=== PATIENT | male | born 1980 | race Two or more races ===

== ENCOUNTER → 2021-09-19 14:48 | Outpatient (BNVA) | payer MEDICARE, MEDICAID, SELFPAY | PROVIDERS: PCP Internal Medicine; Visit Provider Psychiatry & Neurology Neurology | DX: R51.9 Headache, unspecified (principal); G47.33 Obstructive sleep apnea (adult) (pediatric) | CPT/HCPCS: 99212 ==

== ENCOUNTER 2023-03-07 08:57 | Outpatient (AMB) | payer MEDICARE, MEDICAID, SELFPAY ==
--- NOTE | 2023-03-07 08:56 | A.OFFVIS_ITS ---
Intake Vital Signs 03/07/23 08:58 Height 5 ft 9 in Weight 330 lb BMI 48.7 BP 124/86 Blood Pressure Location Rt brachial Position Sitting Pulse Oximetry (%) 95 Oxygen Delivery Method Room Air Intake Visit Reasons: Follow up for JAMIE on CPAP-confirmed Intake Note: Patient presents for follow up JAMIE Allergies No Known Allergies [No Known Allergies*] Allergy (Unverified 03/07/23 09:01) Medication List - Last Reconciled 03/07/23 by Milka Neal MD alum-mag hydroxide-simeth 400-400-40 mg/5 mL (Mylanta Maximum Strength) 5 mL PO QID PRN atorvastatin 20 mg PO DAILY insulin glargine (Lantus Solostar U-100 Insulin) 25 units subcut BEDTIME linagliptin (Tradjenta) 5 mg PO DAILY losartan 25 mg PO DAILY metoprolol succinate ER 25 mg PO DAILY pantoprazole 40 mg PO BID HPI HPI Comments History of Present Illness Details ? 42y/o male comes for follow up . He is on a new CPAP - i do not have compliance report .He feels like the pressure fluctuates and he wakes up.His home care company is [employer] ??? He says he is using it everyday . ??? His headaches have decreased 1 /month and usually related to GERD. He tries to relax. He has photophobia and phonophobia sometimes. He wonders if its related to his GERD or his diabetes. He feels when his glucose is high he gets headaches His diabetes is not well controlled [facility] Medical History Diabetes Fatty liver Frequent headaches GERD (gastroesophageal reflux disease) HTN (hypertension) Hyperlipidemia Obesity Obstructive sleep apnea Surgical History Hx of cholecystectomy Family History Father Diabetes mellitus Mother Hypertension Social History Household Members: Children Household Members Other:: mother Alcohol intake: current Alcohol intake frequency: does not drink Patient Tobacco Use Status: Never used Tobacco Current occupational status: disabled Physical Exam Vital Signs: Last Vital Signs BP 124/86 03/07/23 08:58 Pulse Ox 95 03/07/23 08:58 Oxygen Delivery Method Room Air 03/07/23 08:58 BMI result Body Mass Index 48.7 Const General: cooperative and healthy appearing Nutritional Appearance: obese Orientation/consciousness: patient oriented x3 Neuro General: patient oriented x3, gait normal, moves all extremities and no focal motor deficits Cognition (Neuro): normal cognition Gait exam (Neuro): Normal gait present Motor exam (neuro): 5/5 motor strength present throughout Assessment & Plan Assessment & Plan (1) Obstructive sleep apnea: Code(s): G47.33 - Obstructive sleep apnea (adult) (pediatric) Plan Continue CPAP pressure to 8-12. Counseled on good BP and glucose control. Compliance report from [facility] Coding Level of Care Code Est Pt Level 4 (10507) Diagnoses Obstructive sleep apnea G47.33
[2023-03-07 08:58] VITALS: BP 124/86; O2SAT 95; BMI 48.7
== END 2023-03-07 09:18 | disposition home or self-care (01) ==
PROVIDERS: PCP Internal Medicine; Visit Provider Psychiatry & Neurology Neurology
DX: G47.33 Obstructive sleep apnea (adult) (pediatric) (principal)
CPT/HCPCS: 99214

== ENCOUNTER → 2023-03-07 08:57 | Outpatient (BNVA) | payer MEDICARE, MEDICAID, SELFPAY | PROVIDERS: PCP Internal Medicine; Visit Provider Psychiatry & Neurology Neurology | DX: G47.33 Obstructive sleep apnea (adult) (pediatric) (principal) | CPT/HCPCS: 99212 ==

== ENCOUNTER 2023-05-15 10:25 | Outpatient (AMB) | payer MEDICARE, MEDICAID, SELFPAY ==
--- NOTE | 2023-05-15 10:36 | MHC.OFFVIS ---
Intake Vital Signs 05/15/23 10:38 Height 5 ft 9 in Weight 326 lb 2 oz BMI 48.2 BP 110/82 Blood Pressure Location Lt brachial Position Sitting Pulse 82 Pulse Source Pulse Oximeter Pulse Oximetry (%) 98 Oxygen Delivery Method Room Air Intake Visit Reasons: 2m Follow up JAMIE on CPAP-confirmed Intake Note: Pt is here for a 2 month follow up for JAMIE with CPAP use. Pt reports his machine is pushing too much air out and it gives me chest pain . He feels this may need to be adjusted as the max settings have become difficult to tolerate. Allergies No Known Allergies [No Known Allergies*] Allergy (Unverified 05/15/23 10:43) HPI HPI Comments History of Present Illness Details ? 43y/o male comes for follow up . He is on a new CPAP - i do not have compliance report .He feels like the pressure fluctuates and he wakes up.His home care company is [employer] ??? He says he is using it everyday .He reports waking up with chest pressure and feels like it is too much air. ??? His headaches have decreased 1 /month and usually related to GERD. He tries to relax. He has photophobia and phonophobia sometimes. He wonders if its related to his GERD or his diabetes. He feels when his glucose is high he gets headaches His diabetes is not well controlled [facility] Medical History Frequent headaches Obstructive sleep apnea Fatty liver Hyperlipidemia GERD (gastroesophageal reflux disease) HTN (hypertension) Diabetes Obesity Surgical History Hx of cholecystectomy Family History Father Diabetes mellitus Mother Hypertension Social History Household Members: Children Household Members Other:: mother Alcohol intake: current Alcohol intake frequency: does not drink Patient Tobacco Use Status: Never used Tobacco Current occupational status: disabled Physical Exam Vital Signs: Last Vital Signs Pulse 82 05/15/23 10:38 BP 110/82 05/15/23 10:38 Pulse Ox 98 05/15/23 10:38 Oxygen Delivery Method Room Air 10/11/23 10:38 BMI result Body Mass Index 48.2 Const General: cooperative and healthy appearing Nutritional Appearance: obese Orientation/consciousness: patient oriented x3 Neuro General: patient oriented x3, gait normal, moves all extremities and no focal motor deficits Cognition (Neuro): normal cognition Gait exam (Neuro): Normal gait present Motor exam (neuro): 5/5 motor strength present throughout Assessment & Plan Assessment & Plan (1) Obstructive sleep apnea: Code(s): G47.33 - Obstructive sleep apnea (adult) (pediatric) Plan Continue CPAP pressure to 8-12. suggeste dto use a wdge pillow that can help his GERD symptoms at night Counseled on good BP and glucose control.suggested to use CGM Compliance report from [facility] Coding Level of Care Code Est Pt Level 4 (37976) Diagnoses Obstructive sleep apnea G47.33
[2023-05-15 10:38] VITALS: BP 110/82; PULSE 82; O2SAT 98; BMI 48.2
== END 2023-05-15 10:58 | disposition home or self-care (01) ==
PROVIDERS: PCP Internal Medicine; Visit Provider Psychiatry & Neurology Neurology
DX: G47.33 Obstructive sleep apnea (adult) (pediatric) (principal)
CPT/HCPCS: 99214

== ENCOUNTER → 2023-05-15 10:25 | Outpatient (BNVA) | payer MEDICARE, MEDICAID, SELFPAY | PROVIDERS: PCP Internal Medicine; Visit Provider Psychiatry & Neurology Neurology | DX: G47.33 Obstructive sleep apnea (adult) (pediatric) (principal) | CPT/HCPCS: 99212 ==

== ENCOUNTER 2023-08-23 11:35 | Outpatient (AMB) | payer MEDICARE, MEDICAID, SELFPAY ==
--- NOTE | 2023-08-23 11:39 | MHC.OFFVIS ---
Intake Vital Signs 08/23/23 11:43 Height 5 ft 9 in Weight 329 lb BMI 48.6 BP 124/82 Blood Pressure Location Rt brachial Position Sitting Pulse 83 Pulse Source Pulse Oximeter Pulse Oximetry (%) 96 Oxygen Delivery Method Room Air Intake Visit Reasons: 3 mo f/u- JAMIE on CPAP-Confirmed Intake Note: patient presents three month F/U JAMIE. Allergies No Known Allergies [No Known Allergies*] Allergy (Verified 08/23/23 11:42) HPI HPI Comments History of Present Illness Details 43 y/o male patient comes for follow up of JAMIE on CPAP. He is on a new CPAP, the pressure is [id number]. Current CPAP compliance is not available, requested to [facility] for compliance report. The previous period compaliance avaliable. (from 02/14/23-05/14/23) The usage days 100% and the average usage hours 7 hrs 50 min. He reports waking up with chest pressure and feels like too much air, but it is mostly associated with GERD symptoms too. Pt reports his GERD symptoms not manages well with pantoprazole 40 mg BID and also TUMS. His headaches have decreased 1 /month and usually related to GERD. He tries to relax. He has photophobia and phonophobia sometimes. He wonders if its related to his GERD or his diabetes. He feels when his glucose is high he gets headaches His diabetes is not well controlled [facility] Medical History Frequent headaches Obstructive sleep apnea Fatty liver Hyperlipidemia GERD (gastroesophageal reflux disease) HTN (hypertension) Diabetes Obesity Surgical History Hx of cholecystectomy Family History Father Diabetes mellitus Mother Hypertension Social History Household Members: Children Household Members Other:: mother Alcohol intake: current Alcohol intake frequency: does not drink Patient Tobacco Use Status: Never used Tobacco Current occupational status: disabled Review of Systems Const All systems reviewed & are unremarkable except as noted in HPI and below Physical Exam Vital Signs: Last Vital Signs Pulse 83 08/23/23 11:43 BP 124/82 08/23/23 11:43 Pulse Ox 96 08/23/23 11:43 Oxygen Delivery Method Room Air 08/23/23 11:43 BMI result Body Mass Index 48.6 Const General: cooperative and healthy appearing Nutritional Appearance: obese Orientation/consciousness: patient oriented x3 Neuro General: patient oriented x3, gait normal, moves all extremities and no focal motor deficits Cognition (Neuro): normal cognition Gait exam (Neuro): Normal gait present Motor exam (neuro): 5/5 motor strength present throughout Assessment & Plan Assessment & Plan (1) Obstructive sleep apnea: Code(s): G47.33 - Obstructive sleep apnea (adult) (pediatric) (2) GERD (gastroesophageal reflux disease): Code(s): K21.9 - Gastro-esophageal reflux disease without esophagitis Plan Continue CPAP pressure to 8-12. Suggested to use a wedge pillow that can help his GERD symptoms at night. Discussed about GERD prevention lifestyle, diet and wt loss. Counseled on good BP and glucose control. Compliance report requested from [facility]. Coding Level of Care Code Est Pt Level 3 (15441) Diagnoses Obstructive sleep apnea G47.33 GERD (gastroesophageal reflux disease) K21.9
[2023-08-23 11:43] VITALS: BP 124/82; PULSE 83; O2SAT 96; BMI 48.6
== END 2023-08-23 12:05 | disposition home or self-care (01) ==
PROVIDERS: PCP Internal Medicine; Visit Provider Nurse Practitioner Family
DX: G47.33 Obstructive sleep apnea (adult) (pediatric) (principal); K21.9 Gastro-esophageal reflux disease without esophagitis
CPT/HCPCS: 99213

== ENCOUNTER → 2023-08-23 11:35 | Outpatient (BNVA) | payer MEDICARE, MEDICAID, SELFPAY | PROVIDERS: PCP Internal Medicine; Visit Provider Nurse Practitioner Family | DX: G47.33 Obstructive sleep apnea (adult) (pediatric) (principal); K21.9 Gastro-esophageal reflux disease without esophagitis | CPT/HCPCS: 99212 ==

== ENCOUNTER 2024-08-21 10:16 | Outpatient (AMB) | payer MEDICARE, MEDICAID, SELFPAY ==
[2024-08-21 10:25] VITALS: BP 156/112; BMI 46.2
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
--- OUTSIDE RECORDS SUMMARY | 2024-08-21 12:04 | XMS_ITS | Data Portability ---
Author Organization [facility], Main Office Address [address] [facility] [address] [place] [id number] Care Team Providers Care Rn Community Name Role Phone MARGARITOTITUST Primary Care Provider VANDANA BAUMAN Referring Provider [phone] LIZA MCCRACKEN Referring Provider [phone] [facility] Referring Provider [phone] BRAYAN DAY Referring Provider [facility] Referring Provider [phone] [facility] Referring Provider [phone] HONG FINLEY Referring Provider [phone] [facility] Referring Provider VIDAL STOVER Referring Provider HERIBERTO HINDS Referring Provider Assessment No assessment recorded. Plan of Treatment Reminders Order Date Submit Date Provider Last Modified By Organization Details Last Modified Time Details Appointments None recorded . Lab BMP, serum or plasma 2017 018 [facility], [address], [address], [place], [address], 8 21:01:46 ALT (alanine aminotra nsferase ), serum or plasma 2017 018 [facility], [address], [address], [place], [address], 8 21:01:45 CBC w/ auto diff 2017 018 [facility], [address], [address], [place], [address], 8 19:31:32 hemoglob in A1C, fingerst ick 2017 018 [email or web address] In-Office Order, Internal Use Only DO Not Attach Compendium DO Not Attach Compendium, Do Not Delete/merge, [id number] 13:49:06 vitamin D, 25-hydro xy, total, serum 2017 018 [facility], [address], [address], [place], [address], 8 21:07:51 TSH, serum or plasma 2017 018 [facility], [address], [address], [place], [place], [address], 8 20:42:29 BMP, serum or plasma 2017 018 [facility], [address], [address], [place], [place], [address], 8 20:28:56 Referral bariatri c surgery referral - Morbid obesity with a BMI hovering around 50 for the last 10 years. He is being seen by cardiolo gy October 2017 because of an EF of 40%. He also is mildly cognitiv nayely delayed. 2017 018 eleazar Cobb MD, [address] , [facility] [address], [place], [address], 8 16:21:53 Procedures None recorded . Surgeries None recorded . Imaging None recorded . Medication Orders metformi n 1,000 mg tablet 2017 018 INTERFACE Notice [id number], [address] [place], [id number], 8 13:54:00 Patient Targets Encounter Date Encounter Id Patient Goals Patient Target Last Modified By Organization Details Last Modified Time 01/03/2018 [id number] Microalbumin/Cr eatinine Ratio yearly Not available Not available Not available Blood Pressure 130 / 80 Not available Not availa ble Not available Ongoing of Hemoglobin A1C 2 times per yr Not available Not available Not available Ongoing of Hemoglobin A1C <7 Not available Not available Not available Ongoing of LDL Direct <100 Not available Not available Not available Cholesterol, LDL <100 Not available Not available Not available Pt advised and agrees to do moderate exercise (such as walking) for approximately 150 minutes per week; to decrease carbohydrate intake (25 % of total carbohydrates or less); and to monitor blood glucose as directed Will bring meter and/or readings to appointments. Patient preferences and goals incorporated in plan and updated/modifie d as needed to reflect progress toward goal. [email or web address] Not available 01/04/2018 07:58:40 Patient Instructions Encounter Date Encounter Id Patient Instructions Last Modified By Organization Details Last Modified Time 10/07/2017 [id number] I have reviewed the note and agree with the assessment and plan of care. [email or web address] Not available 10/07/2017 15:12:42 10/09/2017 [id number] At [facility] follow up visit, all current and discharge medications (OTC, herbal therapies, supplements) reviewed and reconciled with patient and or caregiver, including potential side effects, drug interactions, instructions, and the consequences of not taking medication. Reviewed potential barriers to medication adherence, such as side effects from medication or cost of medication. I have reviewed the note and agree with the assessment and plan of care. [email or web address] Not available 10/10/2017 08:01:11 01/03/2018 [id number] Medications (OTC, herbal therapies, supplements) reviewed and reconciled with patient and or caregiver, including potential side effects, drug interactions, instructions, and the consequences of not taking medication. Reviewed potential barriers to medication adherence, such as side effects from medication or cost of medication. [email or web address] Not available 01/03/2018 13:04:07 01/24/2018 [id number] Unable to reconcile patient's medicaitons over phone. UNclear to this advertising copy writer if patient literate. Home visit needed. I have reviewed the note. [email or web address] Not available 02/06/2018 17:00:49 03/31/2018 [id number] irritable bowel syndrome: care instructions [email or web address] Not available 03/31/2018 15:53:44 saline nasal washes: care instructions [email or web address] Not available 03/31/2018 15:53:44 viral respiratory infection: care instructions [email or web address] Not available 03/31/2018 15:53:44 Medications (OTC, herbal therapies, supplements) reviewed and reconciled with patient and or caregiver, including potential side effects, drug interactions, instructions, and the consequences of not taking medication. Reviewed potential barriers to medication adherence, such as side effects from medication or cost of medication. Patient will follow up and keep appointment as scheduled. I have reviewed the note and agree with the assessment and plan of care. [email or web address] Not available 03/31/2018 16:18:15 Reason for Referral Bariatric Surgery Referral f or Body mass index 40+ - severely obese Morbid obesity with a BMI hovering around 50 for the last 10 years. He is being seen by cardiology October 2017 because of an EF of 40%. He also is mildly cognitively delayed. Referring Physician: Christopher Jacob, Family Medicine, Encounter Date: 10/09/2017 Results Created Date Observation Date Name Description Value Unit Range Abnormal Flag Note LastModifiedBy Organization Detail LastModifiedTime 01/04/20 18 01/03/2018 CBC w/ auto diff WBC 6.9 K/mm3 (4.0-1 1.0) Not Available [facility] [address] [place], [address], 01/03/2018 19:31:32 01/04/20 18 01/03/2018 CBC w/ auto diff RBC 5.31 M/mm3 (4.70- 6.10) Not Available [facility] [address] [place], [address], 01/03/2018 19:31:32 01/04/20 18 01/03/2018 CBC w/ auto diff HGB 14.1 gm/dL (13.7- 16.5) Effec tive December 27 18, Pedia tric refer ence range s for HGB and HCT have been updat ed to align with Edwin Ring ocollin of Aleah cope , Ed 2015 and Polly Stovall ook Ed, 2018. Not Available [facility] [address] [place], [address], 01/03/2018 19:31:32 01/04/20 18 01/03/2018 CBC w/ auto diff HCT 42.9 % (40.5- 48.5) Effec tive December 27 18, Pedia tric refer ence range s for HGB and HCT have been updat ed to align with Arthur barclay, [employer] of Aleah cope , Ed 2015 and Polly Handb ook Ed, 2017. Not Available [facility] [address] [place], [address], 01/03/2018 19:31:32 01/04/20 18 01/03/2018 CBC w/ auto diff MCV 80.8 fL (80.0- 94.0) Not Available [facility] [address] [place], [address], 01/03/2018 19:31:32 01/04/20 18 01/03/2018 CBC w/ auto diff MCH 26.6 pg (27.0- 34.0) low Not Available [facility] [address] [place], [address], 01/03/2018 19:31:32 01/04/20 18 01/03/2018 CBC w/ auto diff MCHC 32.9 g/dL (33.0- 37.0) low Not Available [facility] [address] [place], [address], 01/03/2018 19:31:32 01/04/20 18 01/03/2018 CBC w/ auto diff plt 272 K/mm3 (150-4 60) Not Available [facility] [address] [place], [address], 01/03/2018 19:31:32 01/04/20 18 01/03/2018 CBC w/ auto diff RDW-SD 38.0 fL (<47.0 ) Not Available [facility] [address] [place], [address], 01/03/2018 19:31:32 01/04/20 18 01/03/2018 CBC w/ auto diff MPV 10.7 fL (9.4-1 2.4) Not Available [facility] [address] [place], [address], 01/03/2018 19:31:32 01/04/20 18 01/03/2018 CBC w/ auto diff automated NRBC 0.0 #/100 _WBC' s Not Available [facility] [address] [place], [address], 01/03/2018 19:31:32 01/04/20 18 01/03/2018 CBC w/ auto diff abs. NRBC 0.0 K/mm3 Not Available [facility] [address] [place], [address], 01/03/2018 19:31:32 01/04/20 18 01/03/2018 CBC w/ auto diff neut # 4.2 K/mm3 (1.3-7 .0) Not Available [facility] [address] [place], [address], 01/03/2018 19:31:32 01/04/20 18 01/03/2018 CBC w/ auto diff lymph # 2.0 K/mm3 (0.8-3 .1) Not Available [facility] [address], [address], 01/03/2018 19:31:32 01/04/20 18 01/03/2018 CBC w/ auto diff mono# 0.6 K/mm3 (0.4-1 .3) Not Available [facility] [address] [place], [address], 01/03/2018 19:31:32 01/04/20 18 01/03/2018 CBC w/ auto diff eo # 0.1 K/mm3 (0.0-0 .4) Not Available [facility] [address] [place], [address], 01/03/2018 19:31:32 01/04/20 18 01/03/2018 CBC w/ auto diff baso # 0.0 K/mm3 (0.0-0 .1) Not Available [facility] [address] [place], [address], 01/03/2018 19:31:32 01/04/20 18 01/03/2018 CBC w/ auto diff abs. imm gran 0.0 K/mm3 Not Available [facility] [address] [place], [address], 01/03/2018 19:31:32 01/04/20 18 01/03/2018 CBC w/ auto diff neut 61.2 % (44-76 ) Not Available [facility] [address] [place], [address], 01/03/2018 19:31:32 01/04/20 18 01/03/2018 CBC w/ auto diff lymph 28.1 % (15-43 ) Not Available [facility] [address] [place], [address], 01/03/2018 19:31:32 01/04/20 18 01/03/2018 CBC w/ auto diff monocyte 8.2 % (4.5-1 0.5) Not Available [facility] [address] [place], [address], 01/03/2018 19:31:32 01/04/20 18 01/03/2018 CBC w/ auto diff eo 1.7 % (0-6) Not Available [facility] [address] [place], [address], 01/03/2018 19:31:32 01/04/20 18 01/03/2018 CBC w/ auto diff baso 0.4 % (0-2) Not Available [facility] [address] [place], [address], 01/03/2018 19:31:32 01/04/20 18 01/03/2018 CBC w/ auto diff imm gran 0.4 % (0.0-0 .6) Not Available [facility] [address] [place], [address], 01/03/2018 19:31:32 01/04/20 18 01/03/2018 ALT (terri ine amino trans feras e), serum or plasm a ALT 86 U/L (0-41) high Not Available [facility] [address] [place], [address], 01/03/2018 21:01:45 01/04/20 18 01/03/2018 BMP, serum or plasm a glucose 211 mg/dL (70-99 ) high Not Available [facility] [address], [address], 01/03/2018 21:01:46 01/04/20 18 01/03/2018 BMP, serum or plasm a BUN 12 mg/dL (6-20) Not Available [facility] [address] [place], [address], 01/03/2018 21:01:46 01/04/20 18 01/03/2018 BMP, serum or plasm a creatinine 1.0 mg/dL (0.7-1 .2) Not Available [facility] [address] [place], [address], 01/03/2018 21:01:46 01/04/20 18 01/03/2018 BMP, serum or plasm a sodium 138 mmol/ L (133-1 45) Not Available [facility] [address] [place], [address], 01/03/2018 21:01:46 01/04/20 18 01/03/2018 BMP, serum or plasm a potassium 4.4 mmol/ L (3.6-5 .2) Not Available [facility] [address] [place], [address], 01/03/2018 21:01:46 01/04/20 18 01/03/2018 BMP, serum or plasm a chloride 102 mmol/ L (98-10 7) Not Available [facility] [address] [place], [address], 01/03/2018 21:01:46 01/04/20 18 01/03/2018 BMP, serum or plasm a bicarbonate 26 mmol/ L (22-29 ) Not Available [facility] [address] [place], [address], 01/03/2018 21:01:46 01/04/20 18 01/03/2018 BMP, serum or plasm a anion gap 10 (4-17) Not Available [facility] [address] [place], [address], 01/03/2018 21:01:46 01/04/20 18 01/03/2018 BMP, serum or plasm a calcium 9.4 mg/dL (8.6-1 0.5) Not Available [facility] [address] [place], [address], 01/03/2018 21:01:46 01/04/20 18 01/03/2018 BMP, serum or plasm a est GFR non 97 mL/mi n/1.7 3_M2 Creat inine based estim ated glome rular filtr ation rate (eGFR ) is calcu lated using the Chron ic Kidne y Disea se Epide miolo gy Colla borat ion (CKD- EPI). The CKD-E PI creat inine equat ion has not been valid ated in child devi (<18 years ), pregn ant women or in some racia l or ethni c subgr oups other than Cauca sians and Afric an Ameri cans. Not Available [facility] [address] [place], [address], 01/03/2018 21:01:46 01/04/20 18 01/03/2018 BMP, serum or plasm a est GFR 113 mL/mi n/1.7 3_M2 Creat inine based estim ated glome rular filtr ation rate (eGFR ) is calcu lated using the Chron ic Kidne y Disea se Epide miolo gy Colla borat ion (CKD- EPI). The CKD-E PI creat inine equat ion has not been valid ated in child devi (<18 years ), pregn ant women or in some racia l or ethni c subgr oups other than Janet garcia and Afric rambo Orr cans. Not Available [facility] [address] [place], [address], 01/03/2018 21:01:46 01/04/20 18 01/03/2018 hemog lobin A1C, cady rsstephen k HA1C 9.1 % 4-6 Not Available In-Office Order Internal Use Only DO Not Attach Compendium DO Not Attach Compendium, Do Not Delete/merge, [id number] 01/03/2018 13:04:57 03/31/20 18 03/31/2018 BMP, serum or plasm a glucose 152 mg/dL (70-99 ) high Not Available [facility] [address] [place], [address], 03/31/2018 20:28:56 03/31/20 18 03/31/2018 BMP, serum or plasm a BUN 16 mg/dL (6-20) Not Available [facility] [address] [place], [address], 03/31/2018 20:28:56 03/31/20 18 03/31/2018 BMP, serum or plasm a creatinine 0.9 mg/dL (0.7-1 .2) Not Available [facility] [address] [place], [address], 03/31/2018 20:28:56 03/31/20 18 03/31/2018 BMP, serum or plasm a sodium 142 mmol/ L (133-1 45) Not Available [facility] [address] [place], [address], 03/31/2018 20:28:56 03/31/20 18 03/31/2018 BMP, serum or plasm a potassium 4.3 mmol/ L (3.6-5 .2) Not Available [facility] [address] [place], [address], 03/31/2018 20:28:56 03/31/20 18 03/31/2018 BMP, serum or plasm a chloride 105 mmol/ L (98-10 7) Not Available [facility] [address] [place], [address], 03/31/2018 20:28:56 03/31/20 18 03/31/2018 BMP, serum or plasm a bicarbonate 23 mmol/ L (22-29 ) Not Available [facility] [address] [place], [address], 03/31/2018 20:28:56 03/31/20 18 03/31/2018 BMP, serum or plasm a anion gap 14 (4-17) Not Available [facility] [address] [place], [address], 03/31/2018 20:28:56 03/31/20 18 03/31/2018 BMP, serum or plasm a calcium 9.1 mg/dL (8.6-1 0.5) Not Available [facility] [address] [place], [address], 03/31/2018 20:28:56 03/31/20 18 03/31/2018 BMP, serum or plasm a est GFR non 110 mL/mi n/1.7 3_M2 Creat inine based estim ated glome rular filtr ation rate (eGFR ) is calcu lated using the Chron ic Kidne y Disea se Epide miolo gy Colla borat ion (CKD- EPI). The CKD-E PI creat inine equat ion has not been valid ated in child devi (<18 years ), pregn ant women or in some racia l or ethni c subgr oups other than Cauca sians and Afric an Ameri cans. Not Available [facility] [address] [place], [address], 03/31/2018 20:28:56 03/31/20 18 03/31/2018 BMP, serum or plasm a est GFR 128 mL/mi n/1.7 3_M2 Creat inine based estim ated glome rular filtr ation rate (eGFR ) is calcu lated using the Chron ic Kidne y Disea se Epide miolo gy Colla borat ion (CKD- EPI). The CKD-E PI creat inine equat ion has not been valid ated in child devi (<18 years ), pregn ant women or in some racia l or ethni c subgr oups other than Cauca sians and Afric an Ameri cans. Not Available [facility] [address] [place], [address], 03/31/2018 20:28:56 03/31/20 18 03/31/2018 TSH, serum or plasm a TSH 1.17 mIU/m L (0.40- 4.00) Not Available [facility] [address] [place], [address], 03/31/2018 20:42:29 03/31/20 18 03/31/2018 vitam in D, 25-hy droxy , total , serum 25OH vitamin D 13.0 NG/mL (20-50 ) low Serum 25OHD : 12 to 19 ng/ml : at risk of vitam in D inade quacy . Refer ence: [facility] Data Brief : No.59 October: Vitam in D Statu s: Unite d State s: 2000- 2005 As of , Vitam in D, 25-Hy droxy assay has been mclaughlin ed. In some [facility], the new assay may yield a highe r value (up to 15% incre ase) in césar rison to the old assay . These incre ases would mainl y be notic eable at value s of great er than 50 ng/ml . Not Available [facility] [address], [place], [address], 03/31/2018 21:07:51 10/10/19 18 10/06/2017 NM, myoca rdial perfu neptali scan, w/ stres s No observ ation record ed. [email or web address] Not Available 02/2018 13:11:31 10/10/19 18 10/06/2017 NM, myoca rdial perfu neptali scan, w/ stres s No observ ation record ed. [email or web address] Not Available 02/2018 13:11:32 11/02/19 18 10/29/2017 trans -thor acic echoc ardio gram (TTE) (PROC ) No observ ation record ed. [email or web address] Not Available 2017 16:22:15 Result Notes None recorded. Problems Name Problem SNOMED Code Status Onset Date Resolution Date Notes Provider Name and Address Organization Details Recorded Time Abdomina l pain 89916319 Completed 201302/23/2014 RECORDED 12/16/19 14 2:30PM BY EVERTON DE LA O MA, CLAUDY ON/ADDEN DUM Siobhan Wilkins MA [facility] 7 09:04:19 Epigastr ic pain 58714927 Completed 201102/23/2014 RECORDED 02/14/20 12 10:48AM BY CLAUDY CHAUHAN ON/ADDEN ARIN zacarias MD [address] [facility] [address], [place], [address], [facility] 6 08:48:26 Acute pharyngi tis 010573970 Completed 201102/23/2014 RECORDED 02/14/20 12 10:48AM BY CLAUDY CHAUHAN ON/JEMMA zacarias MD [address] [facility] [address], [place], [address], [facility] 6 08:48:25 Allergic rhinitis 42083502 Completed 201102/23/2014 RECORDED 02/14/20 12 10:48AM BY CLAUDY CHAUHAN ON/JEMMA zacarias MD [address] [facility] [address], [place], [address], [facility] 6 08:48:25 Anxiety state 049784869 Active Christopher zacarias MD [address] [facility] [address], [place], [address], [facility] 6 08:48:25 Sleep apnea 12276249 Completed 201102/23/2014 RECORDED 02/14/20 12 10:48AM BY MARY CHAUHANATI ON/JEMMA zacarias MD [address] [facility] [address], [facility] [place], [address], [facility] 6 08:48:25 Asthma 969848894 Active Christopher zacarias MD [address] [facility] [address], [facility] [place], [address], [facility] 6 08:48:25 Acute asthma 941735604 Completed 201102/23/2014 IMPRESSI ON: HE HAS IMPROVED AND WILL CONTINUE WITH CURRENT MGMT; RECORDED 07/15/20 12 9:53AM BY CLAUDY CHAUHAN ON/JEMMA zacarias MD [address] [facility] [address], [facility] [place], [address], [facility] 6 08:48:25 Attentio n deficit hyperact ivity disorder 361861138 Active Christopher zacarias MD [address] [facility] [address], [facility] [place], [address], [facility] 6 08:48:25 Backache 656208724 Completed 201302/23/2014 IMPRESSI ON: ONGOING ISSUE FOR ALMOST A YR. SWITCH TRAMADOL TO FLEXERIL FOR SHORT TERM TREATMEN T. COUNSELE D DROWSINE SS. X-RAY TO CHECK FOR SCOLIOSI S AND R/O ANKYLOSI NG SPONDYLI TIS; RECORDED 11/11/19 14 1:48PM BY MAGGIE SMITH MA, CLAUDY ON/JEMMA zacarias MD [address] [facility] [address], [facility] [place], [address], [facility] 6 08:48:25 Pain in thoracic spine 664997367 Completed 201102/23/2014 IMPRESSI ON: APPEARS MUSCULAR , RECOMMEN D NSAIDS, STRETCHI NG EXERCISE S, HEATING PAD. ALSO DISCUSSE D GENERAL IMPORTAN CE OF WEIGHT LOSS( T/EXERCI SE); RECORDED 02/14/20 12 10:48AM BY CLAUDY CHAUHAN ON/JEMMA zacarias MD [address] [facility] [address], [place], [address], [facility] 6 08:48:25 Intestin al malabsor ption 963059966 Completed 201202/23/2014 IMPRESSI ON: S/P CHOLECYS TECTOMY. HANDOUT [facility] ABOUT THIS REVIEWED . EAT SMALL FREQUENT MEALS, MINIMIZE FATTY FOODS. MINIMIZE CAFFEINE . IF NOT IMPROVIN G, CAN CALL FOR RX FOR CHOLESTY RAMINE. THIS CONDITIO N SHOULD HOPEFULL Y RESOLVE SOON SINCE MOST PEOPLE GET BETTER A FEW MONTHS AFTER CHOLECYS TECTOMY. ; RECORDED 04/07/20 13 8:51AM BY CLAUDY CHAUHAN ON/JEMMA zacarias MD [address] [facility] [address], [place], [address], [facility] 6 08:48:25 Chest pain 66339213 Completed 201102/23/2014 RECORDED 02/14/20 12 10:49AM BY CLAUDY CHAUHAN ON/JEMMA zacarias MD [address] [address], [place], [address], [facility] 6 08:48:25 Breathin g painful 43574894 Completed 201102/23/2014 RECORDED 02/14/20 12 10:48AM BY CLAUDY CHAUHAN ON/JEMMA zacarias MD [address] [facility] [address], [place], [address], [facility] 6 08:48:25 Chronic kidney disease stage 1 235639202 Active Christopher zacarias MD [address] [address], [place], [address], [facility] 6 15:59:58 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 Cognitiv e delay Christopher zacarias MD [address] [facility] [address], [place], [address], [facility] 6 08:48:25 Cough 14513738 Completed 201102/23/2014 RECORDED 02/14/20 12 11:13AM BY CHRISTOPHER JOHN MD, MARYATI ON/ADDEN DUM Christopher zacarias MD [address] [facility] [address], [place], [address], [facility] 6 08:48:25 Single major depressi ve episode Active Christopher zacarias MD [address] [facility] [address], [facility] [place], [address], [facility] 6 08:48:25 Renal disorder due to type 2 diabetes mellitus 734109143 Active Christopher zacarias MD [address] [facility] [address], [place], [address], [facility] 6 15:59:58 Dysuria 86618024 Completed 201102/23/2014 RECORDED 02/14/20 12 10:48AM BY CLAUDY CHAUHAN ON/ADDEN DUM Christopher zacarias MD [address] [facility] [address], [place], [address], [facility] 6 08:48:26 Follow-u p encounte r Completed 201102/23/2014 RECORDED 04/24/20 12 11:25AM BY CLAUDY CHAUHAN ON/ADDEN DUM Christopher zacarias MD [address] [facility] [address], [facility] [place], [address], [facility] 6 08:48:26 Gastroes ophageal reflux disease 823000891 Active Had a pH probe that was positive December 2015 and a manometr y study that was also positive December 2015 Christopher zacarias MD [address] [facility] [address], [place], [address], [facility] 6 12:44:09 Chronic nonalcoh olic liver disease 98431413 Active Christopher zacarias MD [address] [facility] [address], [place], [address], [facility] 6 08:48:25 Influenz a vaccine needed [id number] 06 Completed 201302/23/2014 RECORDED 08/10/19 14 3:10PM BY DINA DE SANTIAGO MA, MARYATI ON/ADDEN DUM Christopher zacarias MD [address] [facility] [address], [place], [address], [facility] 6 08:48:26 Disorder of hair AND/OR hair follicle Completed 200702/23/2014 RESOLVED DATE: 12/04/19 08; RECORDED 12/04/19 08 12:56PM BY CHRISTOPHER JOHN MD, MARYATI ON/ADD DUM Christopher zacarias MD [address] [facility] [address], [place], [address], [facility] 6 08:48:25 Bobby ng 579814007 Completed 201102/23/2014 RECORDED 02/14/20 12 10:49AM BY JULES PALMA I, CLAUDY ON/ADDEN DUM Christopher zacarias MD [address] [facility] [address], [place], [address], [facility] 6 08:48:25 Adult health examinat ion Completed 201306/02/2014 RECORDED 12/16/19 14 2:40PM BY JULES PALMA I, OFFICE VISIT Christopher zacarias MD [address] [facility] [address], [place], [address], [facility] 6 08:48:26 General examinat ion of patient Completed 200702/23/2014 RECORDED 12/04/19 08 12:56PM BY CHRISTOPHER JOHN MD, ANNOTATI ON/ADDBELIA zacarias MD [address] [facility] [facility] [address], [place], [address], [facility] 6 08:48:26 Genital finding [id number] Completed 201102/23/2014 RECORDED 02/14/20 12 10:49AM BY CLAUDY CHAUHAN ON/JEMMA zacarias MD [address] [facility] [address], [facility] [place], [address], [facility] 6 08:48:26 Headache [id number] Completed 201102/23/2014 RECORDED 02/14/20 12 10:49AM BY CLAUDY CHAUHAN ON/JEMMA zacarias MD [address] [facility] [address], [place], [address], [facility] 6 08:48:25 Hemorrha ge of rectum and anus 995316446 Completed 200702/23/2014 RESOLVED DATE: 12/04/19 08; RECORDED 12/04/19 08 12:56PM BY CHRISTOPHER JOHN MD, CLAUDY ON/JEMMA zacarias MD [address] [facility] [address], [place], [address], [facility] 6 08:48:26 Pure hypercho lesterol emia [id number] Completed 201202/23/2014 RECORDED 10/18/19 13 1:50PM BY CLAUDY CHAUHAN/JEMMA zacarias MD [address], [place], [address], [facility] 6 08:48:25 Glucose level outside referenc e range [id number] Completed 201102/23/2014 RECORDED 02/14/20 12 10:48AM BY CLAUDY CHAUHAN ON/JEMMA zacarias MD [address] [facility] [address], [place], [address], [facility] 6 08:48:26 Incontin ence of feces 35322564 Completed 201102/23/2014 RECORDED 02/14/20 12 10:49AM BY CLAUDY CHAUHAN ON/JEMMA zacarias MD [address] [facility] [address], [place], [address], [facility] 6 08:48:26 Bundle branch block [id number] Completed 201302/23/2014 IMPRESSI ON: NONSECIF IC. WILL BE CHECKING K; RECORDED 12/16/19 14 9:10AM BY CLAUDY CHAUHAN ON/JEMMA zacarias MD [address] [facility] [address], [place], [address], [facility] 6 08:48:25 Irritabl e bowel syndrome 59650581 Completed 201102/23/2014 RECORDED 02/14/20 12 10:49AM BY CLAUDY CHAUHAN ON/JEMMA zacarias MD [address] [facility] [address], [place], [address], [facility] 6 08:48:25 Low back pain 338691522 Completed 201302/23/2014 IMPRESSI ON: APPEARS MUSCULAR ; TREAT WITH PAIN MEDS FOR 5 DAYS AND RETURN NEXT WEEK FOR REEVALUA TION.; RECORDED 08/17/19 14 8:56AM BY MAGGIE SMITH MA, ANNOTATI ON/JEMMA zacarias MD [address], [place], [address], [facility] 7 12:57:02 Disorder of upper respirat ory system 080491092 Completed 201102/23/2014 RECORDED 02/14/20 12 10:48AM BY CLAUDY CHAUHAN ON/JEMMA zacarias MD [address], [place], [address], [facility] 6 08:48:26 Nasal polyp Completed 201302/23/2014 IMPRESSI ON: HE DID FLONASE BUT DID NOT SEEM TO HELP. HE FEELS LIKE IT IS STILL THERE; RECORDED 12/16/19 14 9:10AM BY CLAUDY CHAUHAN ON/JEMMA zacarias MD [address], [place], [address], [facility] 6 08:48:25 Patient status finding [id number] Completed 201303/04/2014 RECORDED 12/16/19 14 2:33PM BY JULES PALMA I, OFFICE VISIT Christopher zacarias MD [address], [place], [address], [facility] 6 08:48:26 Patient status finding [id number] Completed 201202/23/2014 RECORDED 04/07/20 13 8:51AM BY CLAUDY CHAUHAN ON/JEMMA zacarias MD [address], [place], [address], [facility] 6 08:48:26 Obesity 938311706 Completed 07/06/2017 Siobhan Wilkins MA null, [facility] 7 09:04:55 Obstruct sylvia sleep apnea syndrome 27266795 Active Currentl y has a machine which helps but he uses it only intermit tently Christopher zacarias MD [address], [place], [address], [facility] 6 08:48:25 Finding relating to sexualit y and sexual activity 554496239 Completed 201102/23/2014 RECORDED 02/14/20 12 10:48AM BY CLAUDY CHAUHAN ON/JEMMA zacarias MD [address] [facility] [address], [place], [address], [facility] 6 08:48:26 Eruption [id number] Completed 201102/23/2014 RECORDED 02/14/20 12 10:48AM BY CLAUDY CHAUHAN ON/JEMMA zacarias MD [address] [facility] [address], [place], [address], [facility] 6 08:48:25 Adult health examinat ion Completed 201102/23/2014 RECORDED 02/14/20 12 10:48AM BY CLAUDY CHAUHAN ON/JEMMA zacarias MD [address] [facility] [address], [place], [address], [facility] 6 08:48:26 Right upper quadrant pain 290614040 Completed 201202/23/2014 IMPRESSI ON: THIS HAS RESOLVED BUT GIVEN HIS SX AND H/O [place] ES FROM 2-3 YRS AGO WE WILL DO ANOTHER U/S AND REFER HIM TO SURGERY FOR EVALUATI ON.; RECORDED 02/13/20 13 10:34AM BY CLAUDY CHAUHAN ON/JEMMA zacarias MD [address] [facility] [address], [place], [address], [facility] 6 08:48:26 Administ ration of diphther ia, pertussi s, and tetanus vaccine Completed 201202/23/2014 RECORDED 03/27/20 13 2:29PM BY MAGGIE SMITH MA, CLAUDY ON/JEMMA zacarias MD [address] [facility] [address], [place], [address], [facility] 6 08:48:26 Dermatop hytosis of the perianal area Completed 201102/23/2014 RECORDED 02/14/20 12 10:48AM BY CLAUDY CHAUHAN ON/JEMMA zacarias MD [address] [facility] [address], [place], [address], [facility] 6 08:48:25 Type 2 diabetes mellitus without complica tion [id number] Completed 201102/23/2014 IMPRESSI ON: TOLERATI NG MEDS WELL; WILL CHECK HIS LABS NEXT VISIT.; RECORDED 03/17/20 12 8:32AM BY CLAUDY CHAUHAN ON/JEMMA zacarias MD [address] [facility] [address], [place], [address], [facility] 6 08:48:25 Constipa tion 21077619 Completed 201202/23/2014 RECORDED 02/13/20 13 10:34AM BY CLAUDY CHAUHAN ON/ADDEN DUM Siobhan Wilkins MA null, [facility] 7 09:04:14 Developm ental delay 708247976 Completed 201102/23/2014 RECORDED 02/14/20 12 10:48AM BY CLAUDY CHAUHAN ON/ADDBELIA zacarias MD [address] [facility] [address], [place], [address], [facility] 6 08:48:25 Vitamin D deficien cy 09927685 Active Christopher zacarias MD [address], [facility] [place], [address], [facility] 6 08:48:25 Constipa tion 97352774 Completed 07/06/2017 Siobhan Wilkins MA null, [facility] 7 09:04:14 Abdomina l pain 79882423 Completed 201303/15/2014 RECORDED 12/16/19 14 2:30PM BY EVERTON DE LA O MA, MARYATI ON/ADDEN DUM Siobhan Wilkins MA null, [facility] 7 09:04:19 Epigastr ic pain 43225971 Completed 201103/15/2014 RECORDED 02/14/20 12 10:48AM BY CLAUDY CHAUHAN ON/ADDEN ARIN zacarias MD [address] [facility] [address], [place], [address], [facility] 6 08:48:26 Acute pharyngi tis 546444008 Completed 201103/15/2014 RECORDED 02/14/20 12 10:48AM BY CLAUDY CHAUHAN ON/JEMMA zacarias MD [address] [facility] [address], [place], [address], [facility] 6 08:48:25 Allergic rhinitis 14955844 Completed 201103/15/2014 RECORDED 02/14/20 12 10:48AM BY CLAUDY CHAUHAN ON/ADDEN ARIN zacarias MD [address] [facility] [address], [place], [address], [facility] 6 08:48:25 Sleep apnea 84431186 Completed 201103/15/2014 RECORDED 02/14/20 12 10:48AM BY CLAUDY CHAUHAN ON/ADDEN ARIN zacarias MD [address] [facility] [address], [place], [address], [facility] 6 08:48:25 Acute asthma 770039501 Completed 201103/15/2014 IMPRESSI ON: HE HAS IMPROVED AND WILL CONTINUE WITH CURRENT MGMT; RECORDED 07/15/20 12 9:53AM BY CLAUDY CHAUHAN ON/JEMMA zacarias MD [address] [facility] [address], [place], [address], [facility] 6 08:48:25 Backache 129589278 Completed 201303/15/2014 IMPRESSI ON: ONGOING ISSUE FOR ALMOST A YR. SWITCH TRAMADOL TO FLEXERIL FOR SHORT TERM TREATMEN T. COUNSELMikie Watkins DROWSINE SS. X-RAY TO CHECK FOR SCOLIOSI S AND R/O ANKYLOSI NG SPONDYLI TIS; RECORDED 11/11/19 14 1:48PM BY MAGGIE SMITH MA, ANNOTATI ON/JEMMA zacarias MD [address] [facility] [address], [place], [address], [facility] 6 08:48:25 Pain in thoracic spine 940250737 Completed 201103/15/2014 IMPRESSI ON: APPEARS MUSCULAR , RECOMMEN D NSAIDS, STRETCHI NG EXERCISE S, HEATING PAD. ALSO DISCUSSE D GENERAL AMELIEAN CE OF WEIGHT LOSS( T/EXERCI SE); RECORDED 02/14/20 12 10:48AM BY CLAUDY CHAUHAN ON/JEMMA zacarias MD [address] [facility] [address], [place], [address], [facility] 6 08:48:25 Intestin al malabsor ption 505360324 Completed 201203/15/2014 IMPRESSI ON: S/P CHOLECYS TECTOMY. HANDOUT [facility] ABOUT THIS REVIEWED . EAT SMALL FREQUENT MEALS, MINIMIZE FATTY FOODS. MINIMIZE CAFFEINE . IF NOT IMPROVIN G, CAN CALL FOR RX FOR CHOLESTY RAMINE. THIS CONDITIO N SHOULD HOPEFULL Y RESOLVE SOON SINCE MOST PEOPLE GET BETTER A FEW MONTHS AFTER CHOLECYS TECTOMY. ; RECORDED 04/07/20 13 8:51AM BY CLAUDY CHAUHAN ON/JEMMA zacarias MD [address], [place], [address], [facility] 6 08:48:25 Chest pain 68111379 Completed 201103/15/2014 RECORDED 02/14/20 12 10:49AM BY CLAUDY CHAUHAN ON/JEMMA zacarias MD [address] [facility] [address], [place], [address], [facility] 6 08:48:25 Breathin g painful 28870530 Completed 201103/15/2014 RECORDED 02/14/20 12 10:48AM BY CLAUDY CHAUHAN ON/JEMMA zacarias MD [address] [facility] [address], [place], [address], [facility] 6 08:48:25 Cough 47256667 Completed 201103/15/2014 RECORDED 02/14/20 12 11:13AM BY CHRISTOPHER JOHN MD, CLAUDY ON/JEMMA zacarias MD [address] [facility] [address], [place], [address], [facility] 6 08:48:25 Dysuria 59223344 Completed 201103/15/2014 RECORDED 02/14/20 12 10:48AM BY CLAUDY CHAUHAN/JEMMA zacarias MD [address] [facility] [address], [place], [address], [facility] 6 08:48:26 Follow-u p encounte r Completed 201103/15/2014 RECORDED 04/24/20 12 11:25AM BY CLAUDY CHAUHAN ON/ADDEN DUM Christopher zacarias MD [address], [place], [address], [facility] 6 08:48:26 Influenz a vaccine needed [id number] 06 Completed 201303/15/2014 RECORDED 08/10/19 14 3:10PM BY DINA DE SANTIAGO MA, CLAUDY ON/ADDEN DUM Christopher zacarias MD [address] [facility] [address], [place], [address], [facility] 6 08:48:26 Disorder of hair AND/OR hair follicle Completed 200703/15/2014 RESOLVED DATE: 12/04/19 08; RECORDED 12/04/19 08 12:56PM BY CHRISTOPHER JOHN MD, CLAUDY ON/ADD ARIN zacarias MD [address] [facility] [address], [place], [address], [facility] 6 08:48:25 [place] e 155001754 Completed 201103/15/2014 RECORDED 02/14/20 12 10:49AM BY CLAUDY CHAUHAN ON/JEMMA zacarias MD [address] [facility] [address], [place], [address], [facility] 6 08:48:25 General examinat ion of patient Completed 200703/15/2014 RECORDED 12/04/19 08 12:56PM BY CHRISTOPHER JOHN MD, CLAUDY ON/JEMMA zacarias MD [address] [facility] [address], [place], [address], [facility] 6 08:48:26 Genital finding [id number] Completed 201103/15/2014 RECORDED 02/14/20 12 10:49AM BY CLAUDY CHAUHAN ON/JEMMA zacarias MD [address] [facility] [address], [place], [address], [facility] 6 08:48:26 Headache 16560052 Completed 201103/15/2014 RECORDED 02/14/20 12 10:49AM BY CLAUDY CHAUHAN ON/JEMMA zacarias MD [address], [place], [address], [facility] 6 08:48:25 Hemorrha ge of rectum and anus 993040018 Completed 200703/15/2014 RESOLVED DATE: 12/04/19 08; RECORDED 12/04/19 08 12:56PM BY CHRISTOPHER JOHN MD, ANNOTATI ON/JEMMA zacarias MD [address] [facility] [address], [place], [address], [facility] 6 08:48:26 Pure hypercho lesterol emia 121803848 Completed 201203/15/2014 RECORDED 10/18/19 13 1:50PM BY CLAUDY CHAUHAN/JEMMA zacarias MD [address] [facility] [address], [place], [address], [facility] 6 08:48:25 Glucose level outside referenc e range 056014624 Completed 201103/15/2014 RECORDED 02/14/20 12 10:48AM BY CLAUDY CHAUHAN/JEMMA zacarias MD [address] [facility] [address], [place], [address], [facility] 6 08:48:26 Incontin ence of feces 67539763 Completed 201103/15/2014 RECORDED 02/14/20 12 10:49AM BY CLAUDY CHAUHAN ON/JEMMA zacarias MD [address], [place], [address], [facility] 6 08:48:26 Bundle branch block [id number] Completed 201303/15/2014 IMPRESSI ON: NONSECIF IC. WILL BE CHECKING K; RECORDED 12/16/19 14 9:10AM BY CLAUDY CHAUHAN ON/JEMMA zacarias MD [address], [place], [address], [facility] 6 08:48:25 Irritabl e bowel syndrome 74783926 Completed 201103/15/2014 RECORDED 02/14/20 12 10:49AM BY CLAUDY CHAUHAN ON/JEMMA zacarias MD [address], [place], [address], [facility] 6 08:48:25 Low back pain 778567954 Completed 201303/15/2014 IMPRESSI ON: APPEARS MUSCULAR ; TREAT WITH PAIN MEDS FOR 5 DAYS AND RETURN NEXT WEEK FOR REEVALUA TION.; RECORDED 08/17/19 14 8:56AM BY MAGGIE SMITH MA, ANNOTATI ON/JEMMA zacarias MD [address], [place], [address], [facility] 7 12:57:02 Disorder of upper respirat ory system 363187345 Completed 201103/15/2014 RECORDED 02/14/20 12 10:48AM BY CLAUDY CHAUHAN ON/JEMMA zacarias MD [address], [place], [address], [facility] 6 08:48:26 Nasal polyp Completed 201303/15/2014 IMPRESSI ON: HE DID FLONASE BUT DID NOT SEEM TO HELP. HE FEELS LIKE IT IS STILL THERE; RECORDED 12/16/19 14 9:10AM BY CLAUDY CHAUHAN ON/JEMMA zacarias MD [address] [facility] [address], [place], [address], [facility] 6 08:48:25 Finding relating to sexualit y and sexual activity 913542545 Completed 201103/15/2014 RECORDED 02/14/20 12 10:48AM BY CLAUDY CHAUHAN ON/JEMMA zacarias MD [address] [facility] [address], [place], [address], [facility] 6 08:48:26 Eruption [id number] Completed 201103/15/2014 RECORDED 02/14/20 12 10:48AM BY CLAUDY CHAUHAN ON/JEMMA zacarias MD [address] [facility] [address], [place], [address], [facility] 6 08:48:25 Right upper quadrant pain 210310562 Completed 201203/15/2014 IMPRESSI ON: THIS HAS RESOLVED BUT GIVEN HIS SX AND H/O [place] ES FROM 2-3 YRS AGO WE WILL DO ANOTHER U/S AND REFER HIM TO SURGERY FOR EVALUATI ON.; RECORDED 02/13/20 13 10:34AM BY CALUDY CHAUHAN ON/JMEMA zacarias MD [address] [facility] [address], [place], [address], [facility] 6 08:48:26 Administ ration of diphther ia, pertussi s, and tetanus vaccine Completed 201203/15/2014 RECORDED 03/27/20 13 2:29PM BY MAGGIE SMITH MA, ANNOTATI ON/ADDEN DUM Christopher zacarias MD [address], [facility] [place], [address], [facility] 6 08:48:26 Dermatop hytosis of the perianal area Completed 201103/15/2014 RECORDED 02/14/20 12 10:48AM BY MARY CHAUHANATI ON/ADDEN DUM Christopher zacarias MD [address] [facility] [address], [place], [address], [facility] 6 08:48:25 Type 2 diabetes mellitus without complica tion 245794010 Completed 201103/15/2014 IMPRESSI ON: TOLERATI NG MEDS WELL; WILL CHECK HIS LABS NEXT VISIT.; RECORDED 03/17/20 12 8:32AM BY MARY CHAUHANATI ON/ADDEN DUM Christopher zacarias MD [address] [facility] [address], [place], [address], [facility] 6 08:48:25 Constipa tion 20721455 Completed 201203/15/2014 RECORDED 02/13/20 13 10:34AM BY MARY CHAUHANATI ON/ADDEN DUM Siobhan Wilkins MA null, [facility] 7 09:04:14 Developm ental delay 060013866 Completed 201103/15/2014 RECORDED 02/14/20 12 10:48AM BY MARY CHAUHANATI ON/ADDEN DUM Christopher zacarias MD [address] [facility] [address], [place], [address], [facility] 6 08:48:25 Abdomina l pain 95234465 Completed 07/06/2017 Siobhan Wilkins MA null, [facility] 7 09:04:19 Pain in elbow 81197077 Completed 06/02/2014 Christopher zacarias MD [address], [place], [address], [facility] 6 08:48:25 Acute asthma 182518314 Completed 06/02/2014 Christopher zacarias MD [address], [place], [address], [facility] 6 08:48:25 Atypical chest pain 183053262 Active He had a cardiac cath November 2017 which was normal. EF=40%. Christopher zacarias MD [address], [place], [address], [facility] 8 19:34:43 Hypercho lesterol emia 71661039 Completed 06/03/2017 Christopher zacarias MD [address], [place], [address], [facility] 7 16:54:41 Herpes zoster ophthalm icus 07591198 Completed 12/17/2014 thought to be on exam, but optho had negative exam Christopher zacarias MD [address], [place], [address], [facility] 6 08:48:25 Sacroili ac joint pain 990307067 Active Christopher zacarias MD [address], [place], [address], [facility] 6 08:48:25 Irritabl e bowel syndrome 16319019 Active Christopher zacarias MD [address], [place], [address], [facility] 6 08:48:25 Headache 64868452 Active Seen by Dr Ángel zacarias MD [address], [place], [address], [facility] 6 12:44:09 Upper respirat ory infectio n 91483388 Completed 07/06/2017 AIDEE Morrow, [facility] 7 09:05:06 Postural dizzines s 438296123 Active Christopher zacarias MD [address], [facility] [place], [address], [facility] 6 08:48:25 Esophage al dysphagi a 09506938 Active ineffect sylvia esophage al motility as per manometr y study. Christopher zacarias MD [address] [facility] [address], [facility] [place], [address], [facility] 6 08:48:26 Gastriti s 9546867 Completed 07/06/2017 AIDEE Morrow, [facility] 7 09:05:03 Type 2 diabetes mellitus 03050356 Completed 06/03/2017 Christopher zacarias MD [address] [facility] [address], [facility] [place], [address], [facility] 7 11:26:49 Morbid obesity 126966821 Completed 07/06/2017 AIDEE Morrow, [facility] 7 09:04:46 Dizzines s 609753259 Completed 07/06/2017 AIDEE Morrow, [facility] 7 09:04:36 Fatigue 57003109 Active Christopher zacarias MD [address] [facility] [address], [facility] [place], [address], [facility] 6 08:48:25 Tinea cruris 383085397 Active Christopher zacarias MD [address], [place], [address], [facility] 6 08:48:25 Allergic rhinitis 61523801 Active Christopher zacarias MD [address], [place], [address], [facility] 6 12:44:09 Body mass index 40+ - severely obese 233864493 Active Christopher zacarias MD [address], [place], [address], [facility] 6 15:59:58 Blood in urine 93117694 Active 2015 Urine studies normal. Probably secondar y to kidney stone. Christopher zacarias MD [address] [facility] [address], [place], [address], [facility] 6 08:39:51 Solitary nodule of lung 136300771 Active 2016 3-mm pleural- based LLL; not high risk; no f/u needed. Christopher zacarias MD [address] [facility] [address], [place], [address], [facility] 7 09:55:13 Nasal congesti on 37497679 Completed 201607/06/2017 Siobhan Wilkins MA [facility], [facility] 7 09:05:09 Low back pain 312941867 Active 2016 Followed by [facility] Christopher zacarias MD [address] [facility] [address], [place], [address], [facility] 7 12:57:02 Hyperlip idemia 70054557 Active 2016 Christopher zacarias MD [address] [facility] [address], [place], [address], [facility] 7 16:55:27 Problem Notes None recorded. Procedures Surgical History Date Name Laterality Status Provider Name and Address Organization Details Recorded Time 018 Diabetic Foot Exam (Monofilament) completed Jules Diana [facility] 01/03/2018 13:04:07 018 Other completed Rody Mckay [facility] 11/13/2017 11:19:19 018 Tte w/doppler complete completed Kristie Hernandez [facility] 11/01/2017 16:22:31 018 Coronary artery angio s&i completed Kristie Hernandez [facility] 11/01/2017 09:05:04 016 Other completed Christopher Jacob MD [address], [place], [address], [facility] 01/16/2016 08:48:26 015 Colonoscopy completed Nida May [facility] 03/13/2016 21:33:29 014 Nebulizer tx completed BRENT Morocho [address] [facility] [address] [facility], [place], [address], [facility] 05/14/2014 11:15:04 013 Cholecystectomy completed Christopher Jacob MD [address], [place], [address], [facility] 04/01/2014 17:29:52 Imaging Results Imaging Date Name Status LastModified by Organization Details LastModified Time 10/06/2017 NM, myocardial perfusion scan, w/ stress completed Information not available 10/09/2017 13:11:31 10/06/2017 NM, myocardial perfusion scan, w/ stress completed Information not available 10/09/2017 13:11:32 10/29/2017 trans-thoracic echocardiogram (TTE) (PROC) completed [email or web address] Information not available 11/01/2017 16:22:15 Procedure Notes None recorded. Medical Equipment None Reported. Allergies Allergen ID Allergen Name Allergen Category Reaction Reaction Severity Criticality Documentation Date Start Date Code Code System Note Provider Name and Address Organization Details Recorded Time 39540 No known allergy (situatio n) Not available Not available Not available Not available 02/16/2014 [id number] SNOMED Erich Marinelli [facility] [address] [facility] [address], [place], [address], [facility] 5 16:13:47 No known drug allergies Medications Name Sig Start Date Stop Date Status Note LastModified by Organization Details LastModified Time freestyle freedom lite lancets 05/17 completed Not Available Not Available Not Available cyclobenz aprine 10 mg tablet THREE TIMES DAILY, NEEDED CAUTION DROWSINE SS 08/27 completed RECORDED 09/11/19 14 11:23AM BY PHILL SCRUGGS, MEDICATI ON [facility]; Not Available Not Available Not Available amoxicill in 500 mg capsule active Not Available Not Available Not Available azithromy reginaldo 250 mg capsule DIRECTED 06/05 completed RECORDED 06/15/20 09 1:24PM BY ANGELA DE SANTIAGO PA-C, MEDICATI ON [facility] N;TAKE TWO TABS DAY ONE, FOLLOWED BY ONE TAB DAILY DAYS 2-5 Not Available Not Available Not Available pioglitaz one 15 mg tablet TAKE 1 TABLET BY MOUTH EVERY DAY 06/12 completed Not Available Not Available Not Available metformin 500 mg tablet Take 1 tablet twice a day by oral route with meals for 90 days. 03/31 completed Not Available Not Available Not Available Colace 100 mg capsule Take 1 capsule twice a day by oral route for 30 days. 2016 active Not Available Not Available Not Avai lable prednison e 10 mg tablet Take 1 tablet every day by oral route as directed for 5 days. 05/19 completed Not Available Not Available Not Available atorvasta tin 20 mg tablet TAKE 1 TABLET BY MOUTH EVERY NIGHT AT BEDTIME active Not Available Not Available No t Available naproxen 375 mg tablet TWO TIMES DAILY PRN PAIN 09/10 completed RECORDED 09/27/19 11 7:16AM BY CHRISTOPHER JOHN MD, MEDICATI ON [facility] N; Not Available Not Available Not Available albuterol sulfate 2.5 mg/3 mL (0.083 %) solution for nebulizat ion Q 4 HRS PRN COUGH/WH EEZE 05/03 completed RECORDED 05/12/20 10 1:30PM BY AIDEE SLATER, MEDICATI ON [facility] N; Not Available Not Available Not Available cetirizin e 10 mg tablet TAKE 1 TABLET BY MOUTH EVERY DAY 10/05 completed Not Available Not Available Not Available Topamax 25 mg tablet Take 1 tablet twice a day by oral route. active Not Available Not Available No t Available ibuprofen 800 mg tablet Take 1 tablet 3 times a day by oral route with meals for 30 days. active Not Available Not Available No t Available tramadol 37.5 mg-acetam inophen 325 mg tablet EVERY 6 HOURS FOR 5 DAYS NEEDED FOR MODERATE TO 08/15 completed RECORDED 08/17/19 14 8:56AM BY CHRISTOPHER JOHN MD, MEDICATI ON [facility]; Not Available Not Available Not Available citalopra m 10 mg tablet TAKE 1 TABLET BY MOUTH EVERY DAY 06/03 completed Not Available Not Available Not Available valacyclo vir 1 gram tablet Take 1 tablet every 8 hours by oral route for 7 days. active Not Available Not Available No t Available Senna Lax 8.6 mg tablet active Not Available Not Available Not Available sumatript an 100 mg tablet Take by oral route. Take 1 at onset of headache and may repeat x1 after 2 hours. Max of 2 in 24 hours. active Not Available Not Available No t Available FreeStyle Lancets 28 gauge TEST SUGAR DAILY 2014 active Not Available Not Available Not Avai lable prednison e 20 mg tablet DAILY 01/27 completed Not Available Not Available Not Available Generlac 10 gram/15 mL oral solution Take 15 mL every day by oral route for 30 days. active Not Available Not Available No t Available glipizide ER 5 mg tablet, extended release 24 hr TAKE 1 TABLET BY MOUTH EVERY DAY active Not Available Not Available No t Available Zithromax Z-Kostas 250 mg tablet QD 07/09 completed RECORDED 07/21/20 07 11:46AM BY MELVINA RAM, MEDICATI ON [facility] N;2PO QD FOR 1 DAY, THEN 1 QD FOR 4 DAYS. Not Available Not Available Not Available penicilli n V potassium 500 mg tablet THREE TIMES A DAY 11/06 completed RECORDED 11/09/19 10 7:56AM BY CHRISTOPHER JOHN MD, MEDICATI ON [facility] N; Not Available Not Available Not Available Advair Diskus 100 mcg-50 mcg/dose powder for inhalatio n INHALE 1 PUFF BY MOUTH EVERY 12 HOURS 09/04 completed Not Available Not Available Not Available ciproflox acin 250 mg tablet Take 1 tablet every 12 hours by oral route for 7 days. 06/20 completed Not Available Not Available Not Available peg-elect rolyte solution 420 gram oral solution active Not Available Not Available Not Available omeprazol e 40 mg capsule,d elayed release Take 1 capsule twice a day by oral route as directed for 30 days. active Not Available Not Available No t Available aspirin 81 mg tablet,de layed release Take 1 tablet every day by oral route. active Not Available Not Available No t Available butalbita l-acetami nophen-ca ffeine 50 mg-325 mg-40 mg tablet active Not Available Not Available Not Available meloxicam 7.5 mg tablet TAKE 1 TABLET BY MOUTH EVERY DAY DIRECTED 10/05 completed Not Available Not Available Not Available oxycodone -acetamin ophen 5 mg-325 mg tablet active Not Available Not Available Not Available Fluticaso ne Propionat e (Inhal) 50 mcg/BLIST inhl powd DAILY 03/27 completed RECORDED 03/27/20 13 2:37PM BY MAGGIE SMITH MA, OFFICE VISIT;DR DEEDEE CARDOZA Not Available Not Available Not Available citalopra m 20 mg tablet Take 1 tablet every day by oral route for 30 days. active Not Available Not Available No t Available famotidin e 20 mg tablet TAKE 1 TABLET BY MOUTH TWICE DAILY DIRECTED 07/06 completed Not Available Not Available Not Available dicyclomi ne 20 mg tablet Take 1 tablet 3 times a day by oral route for 30 days. active Not Available Not Available No t Available benzonata te 100 mg capsule 3 TIMES A DAY NEEDED FOR COUGH 09/29 completed RECORDED 11/14/19 12 9:50AM BY CHRISTOPHER JOHN MD, MEDICATI ON [facility] N; Not Available Not Available Not Available lactulose 10 gram oral packet DAILY 12/13 completed RECORDED 12/17/19 12 10:31AM BY CHRISTOPHER JOHN MD, MEDICATI ON [facility] CTIVAT[facility] N; Not Available Not Available Not Available pantopraz ole 40 mg tablet,de layed release Take 1 tablet every day by oral route as directed for 30 days. 03/14 completed Not Available Not Available Not Available hyoscyami ne sulfate 0.125 mg tablet 07/06 completed Not Available Not Available Not Available metformin 1,000 mg tablet TAKE 1 TABLET BRODY TWICE DAILY active Not Available Not Available No t Available esomepraz ole magnesium 40 mg capsule,d elayed release TAKE ONE CAPSULE BY MOUTH EVERY DAY 03/07 completed Not Available Not Available Not Available lansopraz ole 30 mg capsule,d elayed release 1 daily 2014 active Not Available Not Available Not Avai lable prednison e 50 mg tablet active Not Available Not Available Not Available gabapenti n 300 mg capsule 11/29 completed Not Available Not Available Not Available omeprazol e 20 mg capsule,d elayed release TAKE ONE CAPSULE BY MOUTH DAILY active Not Available Not Available No t Available diclofena c sodium 75 mg tablet,de layed release 11/29 completed Not Available Not Available Not Available cephalexi n 500 mg tablet TID 05/15 completed RECORDED 05/27/20 07 2:50PM BY CHRISTOPHER JOHN MD, MEDICATI ON [facility] CTIVATIO N; Not Available Not Available Not Available lisinopri l 5 mg tablet 1 daily active Not Available Not Available Not Available metoprolo l succinate ER 25 mg tablet,ex tended release 24 hr Take 1 tablet by oral route for 30 days. active Not Available Not Available No t Available Nasonex 50 mcg/actua tion [place] EACH NOSTRIL DAILY 02/10 completed RECORDED 02/13/20 12 2:15PM BY CHRISTOPHER JOHN MD, MEDICATI ON [facility] CT[facility]; Not Available Not Available Not Available polyethyl [place] glycol 3350 17 gram/dose oral powder Take 17 g every day by oral route. active Not Available Not Available No t Available Naprosyn 500 mg tablet Take 1 tablet twice a day by oral route for 14 days. 10/05 completed Not Available Not Available Not Available ketoconaz ole 2 % topical cream BID 06/07 completed RECORDED 07/03/20 07 3:35PM BY CHRISTOPHER JOHN MD, MEDICATI ON [facility] CTIVAT[facility] N; Not Available Not Available Not Available lactulose 20 gram oral packet TWO TIMES DAILY 03/15 completed RECORDED 03/17/20 12 8:30AM BY CHRISTOPHER JOHN MD, MEDICATI ON [facility] N;STOP AFTER HAVING REGULAR BM'S Not Available Not Available Not Available Paxil 10 mg tablet NEEDED 03/27 completed RECORDED 03/27/20 13 2:37PM BY MAGGIE SMITH MA, OFFICE VISIT;TA KE 4-8 HOURS BEFORE SEXUAL ACTIVITY Not Available Not Available Not Available fluticaso ne propionat e 50 mcg/actua tion nasal spray,aba pension SHAKE LIQUID AND USE 1 SPRAY IN EACH NOSTRIL EVERY DAY active Not Available Not Available No t Available clotrimaz ole 1 % topical cream APPLY TO THE AFFECTED AND SURROUND ING AREAS OF SKIN BY TOPICAL ROUTE 2 TIMES PER DAY IN THE MORNING AND EVENING 10/05 completed Not Available Not Available Not Available dicyclomi ne 10 mg capsule Take 1 capsule 3 times a day by oral route for 30 days. 2014 active Not Available Not Available Not Avai lable diazepam 5 mg tablet Take 1 tablet every day by oral route for 7 days. 10/05 completed Not Available Not Available Not Available amoxicill in 875 mg-potass ium clavulana te 125 mg tablet BID 09/23 completed RECORDED 12/18/19 09 11:39AM BY BETY Zacarias MD, MEDICATI ON [facility] CT[facility] N; Not Available Not Available Not Available Ventolin HFA 90 mcg/actua tion aerosol inhaler Inhale 2 puffs every 4 hours by inhalati on route as needed. active Not Available Not Available No t Available albuterol (refill) 90 mcg/actua tion aerosol inhaler Q4 HRS PRN 05/17 completed Not Available Not Available Not Available senna 8.6 mg capsule Take 2 capsules every day by oral route for 30 days. 04/03 completed Not Available Not Available Not Available Senokot DAILY 03/28 completed RECORDED 03/28/20 12 2:18PM BY MARJ JANG, ANNOTATI ON/ADDEN DUM; Not Available Not Available Not Available nebulizer s DIRECTED 06/30 completed RECORDED 10/27/19 10 10:31AM BY ANGELA DE SANTIAGO PA-C, MEDICATI ON [facility] N;PLS INCLUDE ALL NECESSAR Y EQUIP (TUBING, ETC). Not Available Not Available Not Available Miralax NEEDED 11/16 completed RECORDED 11/20/19 13 4:54PM BY JULES PALMA I, MEDICATI ON [facility] CTIVATIO N; Not Available Not Available Not Available Saline Nasal 3-5 TIMES PER DAY NEEDED 05/26 completed RECORDED 05/26/20 10 9:05AM BY ANGELA DE SANTIAGO PA-C, MEDICATI ON [facility] N; Not Available Not Available Not Available PreviDent 5000 Sensitive 1.1 %-5 % dental paste 07/06 completed Not Available Not Available Not Available Advair HFA Q 12 HR 2007 active RECORDED 07/07/20 08 11:22AM BY CHRISTOPHER JOHN MD, ANNOTATI ON/ADDEN DUM; Not Available Not Available Not Available Januvia 100 mg tablet TAKE 1 TABLET BY MOUTH EVERY DAY 06/12 completed Not Available Not Available Not Available Symbicort 160 mcg-4.5 mcg/actua tion HFA aerosol inhaler Inhale 2 puffs twice a day by inhalati on route. 2017 active Not Available Not Available Not Avai lable FreeStyle Lite Strips TEST SUGAR DAILY 2015 active refill request Not Available Not Available Not Available cholecalc iferol (vitamin D3) 1,250 mcg (50,000 unit) capsule Take 1 capsule every week by oral route for 56 days. 2017 active Not Available Not Available Not Avai lable Benefiber DAILY 11/15 completed RECORDED 11/19/19 08 9:08AM BY MELVINA RAM, MEDICATI ON [facility] CTIVATIO N; Not Available Not Available Not Available Probiotic and Acidophil us 300 million cell-250 mg capsule Take 1 capsule every day by oral route as directed for 30 days. 2014 active Not Available Not Available Not Avai lable lactulose 10 gram/15 mL (15 mL) oral solution DAILY NEEDED FOR CONSTIPA TION 03/27 completed RECORDED 03/27/20 13 2:37PM BY MAGGIE SMITH MA, OFFICE VISIT;GE NERLAC Not Available Not Available Not Available EpiPen 2-Kostas 0.3 mg/0.3 mL injection , auto-inje ctor inject prn active Not Available Not Available No t Available Fioricet 50 mg-300 mg-40 mg capsule Take 1 capsule every 8 hours by oral route. active Not Available Not Available No t Available Vitals Date Recorded Body height Body mass index (BMI) Body weight Heart rate Oxygen saturation Oxygen saturation in Arterial blood by Pulse oximetry Body temperature Systolic blood pressure Diastolic blood pressure Provider Name and Address Organization Details Last Updated DateTime 8 175.26 cm 49.6 kg/m2 167179. 04 g 92 /min 98 % 98 % 98.2 [degF] 118 mm[Hg] 76 mm[Hg] Jules Diana [facility] 8 13:17:49 Date Recorded Body height Body mass index (BMI) Body weight Heart rate Oxygen saturation Oxygen saturation in Arterial blood by Pulse oximetry Body temperature Systolic blood pressure Diastolic blood pressure Provider Name and Address Organization Details Last Updated DateTime 8 175.26 cm 48.1 kg/m2 165097. 11 g 94 /min 97 % 97 % 98 [degF] 118 mm[Hg] 72 mm[Hg] Jules Diana [facility] 8 13:07:22 Date Recorded Body height Oxygen saturation Oxygen saturation in Arterial blood by Pulse oximetry Heart rate Body temperature Body mass index (BMI) Body weight Systolic blood pressure Diastolic blood pressure Provider Name and Address Organization Details Last Updated DateTime 8 175.26 cm 97 % 97 % 88 /min 98.6 [degF] 46.4 kg/m2 367499. 7 g 116 mm[Hg] 64 mm[Hg] Hilda Serna MA [facility] 8 15:16:11 Social History Question Answer Notes LastModified by Organizat ion Details LastModified Time Tobacco Smoking Status Never Smoker Not Available [employer] 06/07/2020 03:36:35 Do You Have An Advance Directive? Yes [id number] Information not available 06/07/2020 What Is Your Level Of Alcohol Consumption? None [id number] Information not available 06/07/2020 Is Blood Transfusion Acceptable In An Emergency? Yes [id number] Information not available 06/07/2020 What Is Your Level Of Caffeine Consumption? Occasional [id number] Information not available 06/07/2020 How Much Tobacco Do You Chew? None [id number] Information not available 06/07/2020 Are You Currently Employed? No [id number] Information not available 06/07/2020 What Type Of Diet Are You Following? REGULAR [id number] Information not available 06/07/2020 Which Illicit Or Recreational Drugs Have You Used? 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 Yes [id number] Information not available 06/07/2020 Live Alone Or With Others? With Others Mother, 3 Children, 3 Brothers Information not available 03/04/2014 Do You Take Precautions To Prevent Distracted Driving? Yes [email or web address] Information not available 03/01/2015 How Often Do You Need To Have Someone Help You When You Read Instructions, Pamphlets, Or Other Written Material From Your Doctor Or Pharmacy? Sometimes [email or web address] Information not available 05/17/2016 Have You Served In The ? No [email or web address] Information not available 05/17/2016 What Was The Date Of Your Most Recent Tobacco Screening? 03/31/2018 [id number] Information not available 06/07/2020 How Many Children Do You Have? 3 [id number] Information not available 06/07/2020 Seat Belts Used Routinely No [email or web address] Information not available 03/01/2015 Are You Sexually Active? No [id number] Information not available 06/07/2020 Smoke Alarm In Home Yes [email or web address] Information not available 03/01/2015 Do You Use Sunscreen Routinely? No [id number] Information not available 06/07/2020 Sex: Unknown Functional Status Question Answer Note LastModified by Organization D etails LastModified Time Are you able to care for yourself? No [id number] Information n ot available 06/07/2020 What is your exercise level? None [id number] Information not available 06/07/2020 Mental Status None recorded. Family History Relationship Description Onset Age of this Age Resolved Age Notes LastModified by Organization Details LastModified Time Father Diabetes mellitus 50 [email or web address] Not available 06/2016 10:10:57 Maternal Aunt Diabetes mellitus [email or web address] Not available 06/2016 10:10:57 Maternal Aunt Malignant neoplastic disease [email or web address] Not available 06/2016 10:10:57 Maternal Grandmother Malignant tumor of colon [email or web address] Not available 06/2016 10:10:57 Mother Hypertensive disorder [email or web address] Not available 06/2016 10:10:57 Mother Obesity [email or web address] Not availa ble 12/14/2015 10:10:57 Medical History No medical history recorded. Immunizations Vaccine Type Date Status Note Provider Nam e and Address Organization Details Recorded Time Influenza, split virus, quadrivalent, PF 5 completed Not Available [facility] 08/22/2019 02:22:01 Influenza, split virus, quadrivalent, PF 6 completed Not Available [facility] 08/22/2019 02:22:04 Influenza, split virus, quadrivalent, PF 7 completed Not Available [facility] 08/22/2019 02:22:13 Influenza, split virus, trivalent, PF 4 completed Not Available [facility] 08/22/2019 02:21:57 pneumococcal polysaccharide PPV23 5 completed Not Available [facility] 08/22/2019 02:21:42 Td (adult), 2 Lf tetanus toxoid, preservative free, adsorbed 5 completed Not Available [facility] 02/16/2014 14:12:57 Influenza, split virus, trivalent, preservative 7 completed Not Available [facility] 02/16/2014 14:12:57 Influenza, split virus, trivalent, preservative 8 completed Not Available [facility] 02/16/2014 14:12:57 Influenza, split virus, trivalent, preservative 9 completed Not Available [facility] 02/16/2014 14:12:57 Influenza, split virus, trivalent, preservative 0 completed Not Available [facility] 02/16/2014 14:12:57 Influenza, split virus, trivalent, preservative 1 completed Not Available [facility] 02/16/2014 14:12:57 Influenza, split virus, trivalent, preservative 2 completed Not Available [facility] 02/16/2014 14:12:57 Tdap 3 completed Not Available [facility] 02/16/2014 14:12:58 influenza, seasonal, intradermal, preservative free 3 completed Not Available [facility] 02/16/2014 14:12:58 Past Encounters Encounter ID Performer Location Encounter Start Date Encounter Closed Date Diagnosis/Indication Diagnosis SNOMED-CT Code Diagnosis ICD10 Code Diagnosis Note [id number] Jules Diana Main Office [address] [facility] [address] [place] [address] 03/04/2014 09:13:09 03/04/2014 11:04:53 Renal disorder due to type 2 diabetes mellitus 231275150 Constipation 29604449 ab domnal pain probably secondary to constipati on; possibly from IBS. Will treat and f/u in 1 month. Chronic ki dney disease stage 1 [id number] Obesity [id number] will follow up in 1 month for weight check [id number] [facility] [facility] [address] [facility] [address] [facility] AIDEE kamara [id number] 11/05/2006 00:00:00 [id number] [facility] [facility] [address] [place] [address] 11/05/2006 00:00:00 [id number] [employer] [address] [place] [address] 11/05/2006 00:00:00 [id number] [employer] [facility] [address] [place] [address] 11/05/2006 00:00:00 [id number] [employer] [facility] [address] [facility] [address] [place] [address] 07/27/2006 00:00:00 [id number] [employer] [address] [facility] [address] [place] [address] 07/27/2006 00:00:00 [id number] [employer] [facility] [address] [facility] [place] [address] 07/27/2006 00:00:00 [id number] [employer] [address] [facility] [place] [address] 07/27/2006 00:00:00 [id number] [employer] [address] [facility] [address] [place] [address] 04/17/2006 00:00:00 [id number] [employer] [address] [facility] [place] [address] 04/17/2006 00:00:00 [id number] [employer] [address] [facility] [place] [address] 04/17/2006 00:00:00 [id number] [employer] [address] [facility] [address] [place] [address] 10/25/2004 00:00:00 [id number] [employer] [address] [facility] [place] [address] 09/06/2004 00:00:00 [id number] [employer] [address] [place] [address] 09/06/2004 00:00:00 [id number] [employer] [address] [place] [address] 12/26/2006 00:00:00 [id number] [employer] [address] [facility] [address] [place] [address] 12/26/2006 00:00:00 [id number] [employer] [address] [place] [address] 12/26/2006 00:00:00 [id number] [employer] [address] [facility] [place] [address] 03/04/2007 00:00:00 [id number] [employer] [address] [facility] [place] [address] 05/08/2007 00:00:00 [id number] [employer] [address] [facility] [place] [address] 05/08/2007 00:00:00 [id number] [employer] [address] [facility] [place] [address] 05/08/2007 00:00:00 [id number] [employer] [address] [facility] [place] [address] 07/04/2007 00:00:00 [id number] [employer] [address] [facility] [place] [address] 07/04/2007 00:00:00 [id number] [employer] [address] [facility] [place] [address] 07/04/2007 00:00:00 [id number] [employer] [address] [facility] [place] [address] 10/17/2007 00:00:00 [id number] [employer] [address] [facility] [place] [address] 12/04/2007 00:00:00 [id number] [facility] [address] [place] [address] 12/04/2007 00:00:00 [id number] auto[employer] erce [address] [place] [address] 07/07/2008 00:00:00 [id number] [facility] [address] [place] [address] 07/07/2008 00:00:00 [id number] [employer] [address] [facility] [address] [place] [address] 07/07/2008 00:00:00 [id number] [employer] [address] [facility] [address] [place] [address] 09/13/2008 00:00:00 [id number] [employer] [address] [facility] [place] [address] 05/31/2009 00:00:00 [id number] [employer] [address] [facility] [place] [address] 05/31/2009 00:00:00 [id number] auto[employer] erce [address] [facility] [address] [place] [address] 05/31/2009 00:00:00 [id number] [employer] [address] [facility] [place] [address] 10/27/2009 00:00:00 [id number] [employer] [address] [facility] [place] [address] 03/24/2010 00:00:00 [id number] [employer]ce [address] [facility] [address] [place] [address] 03/24/2010 00:00:00 [id number] auto[employer] erce [address] [facility] [place] [address] 04/03/2010 00:00:00 [id number] auto[employer]ce [address] [place] [address] 04/03/2010 00:00:00 [id number] auto[employer] erce [address] [place] [address] 04/11/2010 00:00:00 [id number] auto[employer] erce [address] [place] [address] 04/11/2010 00:00:00 [id number] auto[employer] erce [address] [place] [address] 04/25/2010 00:00:00 [id number] auto[employer] erce [address] [place] [address] 04/25/2010 00:00:00 [id number] [employer] [address] [facility] [address] [place] [address] 04/25/2010 00:00:00 [id number] auto[employer] erce [address] [place] [address] 04/25/2010 00:00:00 [id number] auto[employer] erce [address] [facility] [address] [place] [address] 04/26/2010 00:00:00 [id number] [employer] [address] [facility] [place] [address] 04/26/2010 00:00:00 [id number] [employer] [address] [place] [address] 05/26/2010 00:00:00 [id number] [employer] [address] [place] [address] 2 05/26/2010 00:00:00 [id number] [employer] [address] [facility] [address] [place] [address] 05/26/2010 00:00:00 [id number] [employer] [address] [place] [address] 07/11/2010 00:00:00 [id number] [employer] [address] [place] [address] 2 08/11/2010 00:00:00 [id number] [employer] [address] [place] [address] 2 08/11/2010 00:00:00 [id number] [employer] [address] [place] [address] 2 08/11/2010 00:00:00 [id number] [employer] [address] [place] [address] 2 10/17/2010 00:00:00 [id number] [employer] [address] [facility] [address] [place] [address] 2 10/17/2010 00:00:00 [id number] [employer] [address] [facility],[address] [place] [address] 2 05/18/2011 00:00:00 [id number] [employer] [address] [facility],[address] [place] [address] 2 05/18/2011 00:00:00 [id number] [employer] [address] [facility] [address] [place] [address] 2 05/18/2011 00:00:00 [id number] [employer] [address] [facility],[address] [place] [address] 2 05/18/2011 00:00:00 [id number] [employer] [address] [facility] [address] [place] [address] 2 07/06/2011 00:00:00 [id number] [employer] [address] [facility] [address] [place] [address] 2 07/06/2011 00:00:00 [id number] [employer] [address] [facility] [place] [address] 2 07/19/2011 00:00:00 [id number] [employer] [address] [place] [address] 2 07/19/2011 00:00:00 [id number] [employer] [address] [place] [address] 2 07/19/2011 00:00:00 [id number] [employer] [address] [place] [address] 2 09/19/2011 00:00:00 [id number] [employer] [address] [place] [address] 2 09/19/2011 00:00:00 [id number] [employer] [address] [facility] [address] [place] [address] 2 09/19/2011 00:00:00 [id number] [employer] [address] [facility] [place] [address] 2 09/19/2011 00:00:00 [id number] [employer] [address] [facility] [place] [address] 2 12/17/2011 00:00:00 [id number] [employer] [address] [facility] [place] [address] 2 12/17/2011 00:00:00 [id number] [employer] [address] [facility] [place] [address] 2 12/17/2011 00:00:00 [id number] [employer] [address] [facility] [place] [address] 2 12/17/2011 00:00:00 [id number] [employer] [address] [facility] [place] [address] 2 01/09/2012 00:00:00 [id number] [employer] [address] [facility] [place] [address] 01/09/2012 00:00:00 [id number] [employer] [address] [facility] [place] [address] 2 02/04/2012 00:00:00 [id number] [employer] [address] [place] [address] 2 02/04/2012 00:00:00 [id number] [employer] [address] [place] [address] 2 02/04/2012 00:00:00 [id number] [employer] [address] [place] [address] 2 02/14/2012 00:00:00 [id number] [employer] [address] [place] [address] 2 02/14/2012 00:00:00 [id number] [employer] [address] [place] [address] 2 03/17/2012 00:00:00 [id number] [employer] [address] [facility] [address] [place] [address] 2 03/17/2012 00:00:00 [id number] [employer] [address] [facility] [address] [place] [address] 2 04/24/2012 00:00:00 [id number] [employer] [address] [facility] [address] [place] [address] 2 04/24/2012 00:00:00 [id number] [employer] [address] [facility] [address] [place] [address] 2 07/15/2012 00:00:00 [id number] [employer] [address] [place] [address] 2 10/17/2012 00:00:00 [id number] [employer] [address] [place] [address] 2 10/17/2012 00:00:00 [id number] [employer] [address] [facility] [address] [place] [address] 2 11/03/2012 00:00:00 [id number] [employer] [address] [place] [address] 2 11/03/2012 00:00:00 [id number] [employer] [address] [place] [address] 2 02/12/2013 00:00:00 [id number] [employer] [address] [place] [address] 2 03/27/2013 00:00:00 [id number] [employer] [address] [place] [address] 2 03/27/2013 00:00:00 [id number] [employer] [address] [place] [address] 2 03/27/2013 00:00:00 [id number] [employer] [address] [place] [address] 2 03/27/2013 00:00:00 [id number] [employer] [address] [place] [address] 2 05/12/2013 00:00:00 [id number] [employer] [address] [facility] [address] [place] [address] 2 05/12/2013 00:00:00 [id number] [employer] [address] [place] [address] 2 05/12/2013 00:00:00 [id number] [employer] [address] [place] [address] 2 08/10/2013 00:00:00 [id number] [employer] [address] [place] [address] 2 11/10/2013 00:00:00 [id number] [employer] [address] [place] [address] 2 11/10/2013 00:00:00 [id number] [employer] [address] [place] [address] 2 12/15/2013 00:00:00 [id number] [employer] [address] [place] [address] 2 12/15/2013 00:00:00 [id number] [employer] [address] [place] [address] 2 12/15/2013 00:00:00 [id number] [employer] [address] [place] [address] 2 08/17/2013 00:00:00 [id number] [employer] [address] [place] [address] 2 09/27/2010 00:00:00 [id number] [employer] [address] [place] [address] 2 09/27/2010 00:00:00 [id number] [employer] [address] [facility] [address] [place] [address] 2 10/13/2012 00:00:00 [id number] [employer] [address] [facility],[address] [place] [address] 2 10/13/2012 00:00:00 [id number] [employer] [address] [facility] [address] [place] [address] 2 10/13/2012 00:00:00 [id number] [employer] [address] [facility],[address] [place] [address] 2 11/14/2011 00:00:00 [id number] [employer] [address] [place] [address] 2 11/14/2011 00:00:00 [id number] [employer] [address] [place] [address] 2 12/12/2010 00:00:00 [id number] [employer] [address] [facility],[address] [place] [address] 2 12/12/2010 00:00:00 [id number] [facility] Main Office [address] [place] [address] 04/01/2014 13:28:57 04/01/2014 14:29:56 Abdominal pain 74977774 possibly from IBS and constipati on. We discussed the importance of a balanced diet and he will also try miralax to see if this helps with his sx. [id number] Maggie Smith Main Office [address] [address] [place] [address] 04/09/2014 15:07:22 04/09/2014 15:43:40 Abdominal pain 55952572 Pain in elbow 48392876 [id number] Jules Diana Main Office [address] [address] [place] [address] 05/14/2014 10:22:03 05/14/2014 11:54:26 Asthma 362543872 Acute asthma 429994249 U se inhalers as prescribed . Prednisone taper x 5 days. [id number] Jules Diana Main Office [address] [address] [place] [address] 06/02/2014 09:13:22 06/02/2014 09:49:22 Constipation 49559888 abdomnal pain probably secondary to constipati on; possibly from IBS. Will treat and f/u in 1 month. Renal diso rder due to type 2 diabetes mellitus 632449039 Needs infl uenza immunization 606461245 Chronic ki dney disease stage 1 280007786 Chronic no nalcoholic liver disease 33685836 [id number] Hilda Serna [place] Main Office [address] [address] [place] [address] 07/12/2014 11:17:20 07/12/2014 11:45:32 Gastroesophageal reflux disease 992457761 continue omeprazole 20 mg BID, GERD precaution s reviewed, FU with her GI provider if symptoms persist/wo rsen [id number] Brit Paulino Main Office [address] [address] [place] [address] 08/26/2014 11:17:19 08/26/2014 11:58:54 Atypical chest pain 920833582 normal exam and ECG, reassuranc e given to patient that this is not c/w cardiac chest pain [id number] Main Office [address] [address] [place] [address] 09/02/2014 09:14:05 09/02/2014 10:02:17 Renal disorder due to type 2 diabetes mellitus 445271935 he continues to lose weight which helps with his diabetes control Chronic ki dney disease stage 1 416073365 continue with ACEI Gastroesop hageal reflux disease 746004349 continue with current meds Hypercholesterolemia 98913202 continue with statin and check labs Administra tion of pneumococcal vaccine 07300464 [id number] Christopher Jacob MD Main Office [address] [address] [place] [address] 11/10/2014 09:13:02 11/10/2014 10:34:24 Atypical chest pain 757947849 will do cxr. 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 we got him in with eye dr andreas [id number] Christopher Jacob MD Main Office [address] [address] [place] [address] 12/02/2014 09:10:48 12/02/2014 10:23:31 Renal disorder due to type 2 diabetes mellitus 115335337 His diabetes has been under good control Constipation 07910595 Th is continues to be a problem despite a stool softener. I encouraged him to walk an hour daily and to increase water and fiber and will send a different script to his pharmacy. Recheck in 1 month. Anxiety state 018938061 has many symptoms which sound like panic attacks. Will treat with an SSRI and see him back in 1 month. [id number] Jules Diana [address] Office [address] [address] 12/30/2014 09:15:19 12/30/2014 10:18:03 Irritable bowel syndrome 06731696 his symptoms sound like IBS since he has increased gas and constipati on. We will try bentyl and I encouraged him to walk daily which should help with his constipati on. [id number] Main Office [address] [address] [place] [address] 03/01/2015 10:09:59 03/01/2015 10:55:12 Adult health examination 964856700 Constipation 74193096 Th is continues to be a problem despite a stool softener. I encouraged him to walk an hour daily and to increase water and fiber. He continues to gain weight and does not leave the house instead spending most of the day sitting. I informed him that meds were not the answer to his problem and that he should change his diet and start moving. Renal diso rder due to type 2 diabetes mellitus 682167243 His diabetes has been under good control Obesity 947578743 will follow up in 1 month for weight check Gastroesop hageal reflux disease 224908843 stop omeprazole and try a different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 called by the doctor (he doesn't remember the name) after his ECHO and told that his heart was not pumping enough blood. He is scheduled to see a elevator inspector on October 14. Christopher Jacob MD [address] [address], [place], [address], [facility] 10/10/2017 08:09:26 01/03/2018 text/html Diabetes F/URepo rted bypatient.Context:see ing eye doctor regularly; checking feet regularly; not missing doses of medications; no side effects from medications Associated Symptoms:no dizziness; no sweats; no headaches; no increased thirst; no numbness of feet; no calluses on feet;weight loss (10 lbs)dyspneaReported bypatient.Notes:This is secondary to his morbid obesity. His ECHO shows a decreased EF but he had a normal cath. He was scheduled to see Dr Cobb to discuss weight-loss surgery but he did not keep the appointment. He is unsure whether he wants to look into this. Christopher Jacob MD [address] [address], [place], [address], [facility] 01/04/2018 08:05:29 01/24/2018 text/html Hospitalization Contact RecordReported bypatient.Follow UpHospital: [facility]; admit date: (Please enter in format 'MM/DD/YYYY') (01/21/18); date of discharge: (Please enter in format 'MM/DD/YYYY') (01/22/18); date of contact: (Please enter in format 'MM/DD/YYYY') (01/24/18)Notes:Medic are covered inpatient stay? yes Medicare PRITESH with in 48 working hours? yes High Complexity code valid on or before:January Moderate Complexity code valid on or before: February HCP on file? yes MOLST on file? no Discharge Summary available? yes 37 y/o male w/ PMH significant for asthma, HTN, HLD, NIDDM, obesity, and GERD presented to [facility]/o SOB and palpitations.. Nothing acute found. Patient admitted overnight for observation. CM contacted inpatient CM while patient was in hospital with idea of getting daily SNVs under [facility] for assistance with medical claims processor as med non-compliance has been what has driven patient to hospital 3 x in past 2 weeks. Whe approached by inpatient CM, patient declined any such services - stating that he manages fine on his own. It is documented in patient's record that he is unable to name his medications. No changes made to patient's management. D/c home ot self care. 12/24 CM f/u call - no ans - unable to leave VM as VM was full12/27 # 2 t/c f/u attempt - no ans - unable to leave VM12/28 # 3 t/c f/u attempt - no ans - unable to leave VM 02/06/18 4th outreach attempt - still unable to reach patient - no hospital f/u appt scheduled. CM looking for alternate #s for patient. Will continue outreach attempts. Christopher Jacob MD [address] [facility] [address], [place], [address], [facility] 02/06/2018 17:00:54 03/31/2018 text/html pt states over p ast few wks felt warm, but no shaking chills, no fever occ gets head congestion, runny nose + h/o seasonal allergies - last used flonase several months ago -- seen by handle turner in past no pur nasal dc, tooth/jaw pain uses nasal pillows for eloisa also occ gets n, htbn - see at ER 2 months ago - mildly better - + h/o constipation, no use of softener - rev gi note 5.18 - h/o ibs-c Bety mcdonald, [facility] [place] 03/31/2018 16:18:26
== END 2024-08-21 11:59 | disposition home or self-care (01) ==
PROVIDERS: PCP Internal Medicine; Visit Provider Physician Assistant Medical
DX: E11.69 Type 2 diabetes mellitus with other specified complication (principal); R53.83 Other fatigue; G47.9 Sleep disorder, unspecified; E66.813 Obesity, class 3; E66.01 Morbid (severe) obesity due to excess calories; Z68.41 Body mass index [BMI] 40.0-44.9, adult
CPT/HCPCS: 99214

== ENCOUNTER → 2024-08-21 10:16 | Outpatient (BNVA) | payer MEDICARE, MEDICAID, SELFPAY | PROVIDERS: PCP Internal Medicine; Visit Provider Physician Assistant Medical | DX: E11.69 Type 2 diabetes mellitus with other specified complication (principal); R53.83 Other fatigue; G47.9 Sleep disorder, unspecified; E66.813 Obesity, class 3; Z79.4 Long term (current) use of insulin; Z68.42 Body mass index [BMI] 45.0-49.9, adult | CPT/HCPCS: 99212 ==

== ENCOUNTER 2024-08-25 09:24 | Outpatient (REF) | payer MEDICARE, MEDICAID, SELFPAY ==
--- OUTSIDE RECORDS SUMMARY | 2024-08-25 10:17 | XMS_ITS | Data Portability ---
Author Organization [facility], Main Office Address [address] [facility] [address] [place] [id number] Care Team Providers Care Forester Silviculture Name Role Phone MARGARITOTITUST Primary Care Provider VANDANA BAUMAN Referring Provider [phone] LIZA MCCRACKEN Referring Provider [phone] [facility] Referring Provider [phone] BRAYAN DAY Referring Provider [facility] Referring Provider [phone] [facility] Referring Provider [phone] HONG FINLEY Referring Provider [facility] Referring Provider VIDAL STOVER Referring Provider [phone] HERIBERTO HINDS Referring Provider Assessment No assessment recorded. Plan of Treatment Reminders Order Date Submit Date Provider Last Modified By Organization Details Last Modified Time Details Appointments None recorded . Lab BMP, serum or plasma 2017 018 [facility], [address], [address] [address], [place], [address], 8 21:01:46 ALT (alanine aminotra nsferase ), serum or plasma 2017 018 [facility], [address], [address] [address], [place], [address], 8 21:01:45 CBC w/ auto diff 2017 018 [facility], [address], [address] [address], [place], [address], 8 19:31:32 hemoglob in A1C, fingerst ick 2017 018 [email or web address] In-Office Order, Internal Use Only DO Not Attach Compendium DO Not Attach Compendium, Do Not Delete/merge, [id number] 8 13:49:06 vitamin D, 25-hydro xy, total, serum 2017 018 [facility], [address], [address], [place], [address], 8 21:07:51 TSH, serum or plasma 2017 018 [facility], [address], [address], [place], [place], [address], 8 20:42:29 BMP, serum or plasma 2017 018 [facility], [address], [address], [place], [place], [address], 8 20:28:56 Referral bariatri c surgery referral - Morbid obesity with a BMI hovering around 50 for the last 10 years. He is being seen by cardiolo gy October 2017 because of an EF of 40%. He also is mildly cognitiv nayely delayed. 2017 018 eleazar Cobb MD, [address] , [facility], [address], [place], [address], 8 16:21:53 Procedures None recorded . Surgeries None recorded . Imaging None recorded . Medication Orders metformi n 1,000 mg tablet 2017 018 [id number], [address] [place], [id number], 8 13:54:00 Patient Targets Encounter Date Encounter Id Patient Goals Patient Target Last Modified By Organization Details Last Modified Time 01/03/2018 [id number] Microalbumin/Cr eatinine Ratio yearly Not available Not [...] By Organization Details Last Modified Time 10/07/2017 [id number] I have reviewed the note and agree with the assessment and plan of care. [email or web address] Not available 10/07/2017 15:12:42 10/09/2017 [id number] [facility] follow up visit, all current and discharge [...] care. [email or web address] Not available 10/10/2017 08:01:11 01/03/2018 [id number] Medications (OTC, herbal therapies, supplements) reviewed and reconciled with patient and or caregiver, including potential side effects, drug interactions, instructions, and the consequences of not taking medication. Reviewed potential barriers to medication adherence, such as side effects from medication or cost of medication. [email or web address] Not available 01/03/2018 13:04:07 01/24/2018 [id number] Unable to reconcile patient's medicaitons over phone. UNclear to this underwriter mortgage loan if patient literate. Home visit needed. I have reviewed the note. [email or web address] Not available 02/06/2018 17:00:49 03/31/2018 [id number] irritable bowel syndrome: care instructions [email or web address] Not [...] Available [facility] [address] [place], [address], 01/03/2018 19:31:32 01/04/20 18 01/03/2018 CBC w/ auto diff RBC 5.31 M/mm3 (4.70- 6.10) Not Available [facility] [address] [place], [address], 01/03/2018 19:31:32 01/04/20 18 01/03/2018 CBC w/ auto diff HGB 14.1 gm/dL (13.7- 16.5) Effec tive December 27 18, Pedia tric refer ence range s for HGB and HCT have been updat ed to align with Edwin Ring ocollin of Aleah cope , Ed 2015 and Polly Stovall ook Ed, 2018. Not Available [facility] [address] [place], [address], 01/03/2018 19:31:32 01/04/20 18 01/03/2018 CBC w/ auto diff HCT 42.9 % (40.5- 48.5) Effec tive December 27 18, Pedia tric refer ence range s for HGB and HCT have been updat ed to align with Arthur barclay, [employer] of Aleah cope , Ed 2015 and Polly Handb ook Ed, 2017. Not Available [facility] [address] [place], [address], 01/03/2018 19:31:32 01/04/20 18 01/03/2018 CBC w/ auto diff MCV 80.8 fL (80.0- 94.0) Not Available [facility] [address] [place], [address], 01/03/2018 19:31:32 01/04/20 18 01/03/2018 CBC w/ auto diff MCH 26.6 pg (27.0- 34.0) low Not Available [facility] [address] [place], [address], 01/03/2018 19:31:32 01/04/20 18 01/03/2018 CBC w/ auto diff MCHC 32.9 g/dL (33.0- 37.0) low Not Available [facility] [address] [place], [address], 01/03/2018 19:31:32 01/04/20 18 01/03/2018 CBC w/ auto diff plt 272 K/mm3 (150-4 60) Not Available [facility] [address] [place], [address], 01/03/2018 19:31:32 01/04/20 18 01/03/2018 CBC w/ auto diff RDW-SD 38.0 fL (<47.0 ) Not Available [facility] [address] [place], [address], 01/03/2018 19:31:32 01/04/20 18 01/03/2018 CBC w/ auto diff MPV 10.7 fL (9.4-1 2.4) Not Available [facility] [address] [place], [address], 01/03/2018 19:31:32 01/04/20 18 01/03/2018 CBC w/ auto diff automated NRBC 0.0 #/100 _WBC' s Not Available [facility] [address] [place], [address], 01/03/2018 19:31:32 01/04/20 18 01/03/2018 CBC w/ auto diff abs. NRBC 0.0 K/mm3 Not Available [facility] [address] [place], [address], 01/03/2018 19:31:32 01/04/20 18 01/03/2018 CBC w/ auto diff neut # 4.2 K/mm3 (1.3-7 .0) Not Available [facility] [address] [place], [address], 01/03/2018 19:31:32 01/04/20 18 01/03/2018 CBC w/ auto diff lymph # 2.0 K/mm3 (0.8-3 .1) Not Available [facility] [address], [address], 01/03/2018 19:31:32 01/04/20 18 01/03/2018 CBC w/ auto diff mono# 0.6 K/mm3 (0.4-1 .3) Not Available [facility] [address] [place], [address], 01/03/2018 19:31:32 01/04/20 18 01/03/2018 CBC w/ auto diff eo # 0.1 K/mm3 (0.0-0 .4) Not Available [facility] [address] [place], [address], 01/03/2018 19:31:32 01/04/20 18 01/03/2018 CBC w/ auto diff baso # 0.0 K/mm3 (0.0-0 .1) Not Available [facility] [address] [place], [address], 01/03/2018 19:31:32 01/04/20 18 01/03/2018 CBC w/ auto diff abs. imm gran 0.0 K/mm3 Not Available [facility] [address] [place], [address], 01/03/2018 19:31:32 01/04/20 18 01/03/2018 CBC w/ auto diff neut 61.2 % (44-76 ) Not Available [facility] [address] [place], [address], 01/03/2018 19:31:32 01/04/20 18 01/03/2018 CBC w/ auto diff lymph 28.1 % (15-43 ) Not Available [facility] [address] [place], [address], 01/03/2018 19:31:32 01/04/20 18 01/03/2018 CBC w/ auto diff monocyte 8.2 % (4.5-1 0.5) Not Available [facility] [address] [place], [address], 01/03/2018 19:31:32 01/04/20 18 01/03/2018 CBC w/ auto diff eo 1.7 % (0-6) Not Available [facility] [address] [place], [address], 01/03/2018 19:31:32 01/04/20 18 01/03/2018 CBC w/ auto diff baso 0.4 % (0-2) Not Available [facility] [address] [place], [address], 01/03/2018 19:31:32 01/04/20 18 01/03/2018 CBC w/ auto diff imm gran 0.4 % (0.0-0 .6) Not Available [facility] [address] [place], [address], 01/03/2018 19:31:32 01/04/20 18 01/03/2018 ALT (terri ine amino trans feras e), serum or plasm a ALT 86 U/L (0-41) high Not Available [facility] [address] [place], [address], 01/03/2018 21:01:45 01/04/20 18 01/03/2018 BMP, serum or plasm a glucose 211 mg/dL (70-99 ) high Not Available [facility] [address] [place], [address], 01/03/2018 21:01:46 01/04/20 18 01/03/2018 BMP, serum or plasm a BUN 12 mg/dL (6-20) Not Available [facility] [address] [place], [address], 01/03/2018 21:01:46 01/04/20 18 01/03/2018 BMP, serum or plasm a creatinine 1.0 mg/dL (0.7-1 .2) Not Available [facility] [address] [place], [address], 01/03/2018 21:01:46 01/04/20 18 01/03/2018 BMP, serum or plasm a sodium 138 mmol/ L (133-1 45) Not Available [facility] [address] [place], [address], 01/03/2018 21:01:46 01/04/20 18 01/03/2018 BMP, serum or plasm a potassium 4.4 mmol/ L (3.6-5 .2) Not Available [facility] [address] [place], [address], 01/03/2018 21:01:46 01/04/20 18 01/03/2018 BMP, serum or plasm a chloride 102 mmol/ L (98-10 7) Not Available [facility] [address] [place], [address], 01/03/2018 21:01:46 01/04/20 18 01/03/2018 BMP, serum or plasm a bicarbonate 26 mmol/ L (22-29 ) Not Available [facility] [address] [place], [address], 01/03/2018 21:01:46 01/04/20 18 01/03/2018 BMP, serum or plasm a anion gap 10 (4-17) Not Available [facility] [address] [place], [address], 01/03/2018 21:01:46 01/04/20 18 01/03/2018 BMP, serum or plasm a calcium 9.4 mg/dL (8.6-1 0.5) Not Available [facility] [address] [place], [address], 01/03/2018 21:01:46 01/04/20 18 01/03/2018 BMP, serum [...] Not Available [facility] [address] [place], [address], 01/03/2018 21:01:46 01/04/20 18 01/03/2018 BMP, serum [...] Available [facility] [address] [place], [address], 01/03/2018 21:01:46 01/04/20 18 01/03/2018 hemog lobin A1C, cady rsstephen k HA1C 9.1 % 4-6 Not Available In-Office Order Internal Use Only DO Not Attach Compendium DO Not Attach Compendium, Do Not Delete/merge, [id number] 01/03/2018 13:04:57 03/31/20 18 03/31/2018 BMP, serum or plasm a glucose 152 mg/dL (70-99 ) high Not Available [facility] [address] [place], [address], 03/31/2018 20:28:56 03/31/20 18 03/31/2018 BMP, serum or plasm a BUN 16 mg/dL (6-20) Not Available [facility] [address] [place], [address], 03/31/2018 20:28:56 03/31/20 18 03/31/2018 BMP, serum or plasm a creatinine 0.9 mg/dL (0.7-1 .2) Not Available [facility] [address] [place], [address], 03/31/2018 20:28:56 03/31/20 18 03/31/2018 BMP, serum or plasm a sodium 142 mmol/ L (133-1 45) Not Available [facility] [address] [place], [address], 03/31/2018 20:28:56 03/31/20 18 03/31/2018 BMP, serum or plasm a potassium 4.3 mmol/ L (3.6-5 .2) Not Available [facility] [address] [place], [address], 03/31/2018 20:28:56 03/31/20 18 03/31/2018 BMP, serum or plasm a chloride 105 mmol/ L (98-10 7) Not Available [facility] [address] [place], [address], 03/31/2018 20:28:56 03/31/20 18 03/31/2018 BMP, serum or plasm a bicarbonate 23 mmol/ L (22-29 ) Not Available [facility] [address] [place], [address], 03/31/2018 20:28:56 03/31/20 18 03/31/2018 BMP, serum or plasm a anion gap 14 (4-17) Not Available [facility] [address] [place], [address], 03/31/2018 20:28:56 03/31/20 18 03/31/2018 BMP, serum or plasm a calcium 9.1 mg/dL (8.6-1 0.5) Not Available [facility] [address] [place], [address], 03/31/2018 20:28:56 03/31/20 18 03/31/2018 BMP, serum [...] Available [facility] [address] [place], [address], 03/31/2018 20:28:56 03/31/20 18 03/31/2018 BMP, serum [...] Available [facility] [address] [place], [address], 03/31/2018 20:28:56 03/31/20 18 03/31/2018 TSH, serum or plasm a TSH 1.17 mIU/m L (0.40- 4.00) Not Available [facility] [address] [place], [address], 03/31/2018 20:42:29 03/31/20 18 03/31/2018 vitam in D, 25-hy droxy , total , serum 25OH vitamin D 13.0 NG/mL (20-50 ) low Serum 25OHD : 12 to 19 ng/ml : at risk of vitam in D inade quacy . Refer ence: [facility] Data Brief : No.59 October: Vitam in D Statu s: Unite d State s: 2000- 2005 As of , Vitam in D, 25-Hy droxy assay has been mclaughlin ed. In some [facility], the new assay may yield a highe r value (up to 15% incre ase) in césar rison to the old assay . These incre ases would mainl y be notic eable at value s of great er than 50 ng/ml . Not Available [facility] [address], [place], [address], 03/31/2018 21:07:51 10/10/19 18 10/06/2017 NM, myoca [...] Organization Details Recorded Time Abdomina l pain [id number] Completed 201302/23/2014 RECORDED 12/16/19 14 2:30PM BY EVERTON DE LA O MA, CLAUDY ON/ADDEN DUM Siobhan Wilkins MA [facility] 7 09:04:19 Epigastr ic pain [id number] Completed 201102/23/2014 RECORDED 02/14/20 12 10:48AM BY CLAUDY CHAUHAN ON/ADDEN ARIN zacarias MD [address] [facility] [address], [place], [address], [facility] 6 08:48:26 Acute pharyngi tis [id number] Completed 201102/23/2014 RECORDED 02/14/20 12 10:48AM BY CLAUDY CHAUHAN ON/JEMMA zacarias MD [address] [facility] [address], [place], [address], [facility] 6 08:48:25 Allergic rhinitis 84284928 Completed 201102/23/2014 RECORDED 02/14/20 12 10:48AM BY CLAUDY CHAUHAN ON/JEMMA zacarias MD [address] [facility] [address], [place], [address], [facility] 6 08:48:25 Anxiety state 095122004 Active Christopher zacarias MD [address] [facility] [address], [place], [address], [facility] 6 08:48:25 Sleep apnea 60660038 Completed 201102/23/2014 RECORDED 02/14/20 12 10:48AM BY MARY CHAUHANATI ON/JEMMA zacarias MD [address] [facility] [address], [facility] [place], [address], [facility] 6 08:48:25 Asthma 791980726 Active Christopher zacarias MD [address] [facility] [address], [facility] [place], [address], [facility] 6 08:48:25 Acute asthma 393578011 Completed 201102/23/2014 IMPRESSI ON: HE HAS IMPROVED AND WILL CONTINUE WITH CURRENT MGMT; RECORDED 07/15/20 12 9:53AM BY CLAUDY CHAUHAN ON/JEMMA zacarias MD [address] [facility] [address], [facility] [place], [address], [facility] 6 08:48:25 Attentio n deficit hyperact ivity disorder 677527849 Active Christopher zacarias MD [address] [facility] [address], [facility] [place], [address], [facility] 6 08:48:25 Backache 676835322 Completed 201302/23/2014 IMPRESSI ON: ONGOING ISSUE FOR ALMOST A YR. SWITCH TRAMADOL TO FLEXERIL FOR SHORT TERM TREATMEN T. COUNSELE D DROWSINE SS. X-RAY TO CHECK FOR SCOLIOSI S AND R/O ANKYLOSI NG SPONDYLI TIS; RECORDED 11/11/19 14 1:48PM BY MAGGIE SMITH MA, CLAUDY ON/JEMMA zacarias MD [address] [facility] [address], [facility] [place], [address], [facility] 6 08:48:25 Pain in thoracic spine 301778469 Completed 201102/23/2014 IMPRESSI ON: APPEARS MUSCULAR , RECOMMEN D NSAIDS, STRETCHI NG EXERCISE S, HEATING PAD. ALSO DISCUSSE D GENERAL IMPORTAN CE OF WEIGHT LOSS( T/EXERCI SE); RECORDED 02/14/20 12 10:48AM BY CLAUDY CHAUHAN ON/JEMMA zacarias MD [address] [facility] [address], [place], [address], [facility] 6 08:48:25 Intestin al malabsor ption 955007231 Completed 201202/23/2014 IMPRESSI ON: S/P CHOLECYS TECTOMY. HANDOUT BROWARD HEALTH IMPERIAL POINT ABOUT THIS REVIEWED . EAT SMALL FREQUENT MEALS, MINIMIZE FATTY FOODS. MINIMIZE CAFFEINE . IF NOT IMPROVIN G, CAN CALL FOR RX FOR CHOLESTY RAMINE. THIS CONDITIO N SHOULD HOPEFULL Y RESOLVE SOON SINCE MOST PEOPLE GET BETTER A FEW MONTHS AFTER CHOLECYS TECTOMY. ; RECORDED 04/07/20 13 8:51AM BY CLAUDY CHAUHAN ON/JEMMA zacarias MD [address] [facility] [address], [place], [address], [facility] 6 08:48:25 Chest pain 62448927 Completed 201102/23/2014 RECORDED 02/14/20 12 10:49AM BY CLAUDY CHAUHAN ON/JEMMA zacarias MD [address] [address], [place], [address], [facility] 6 08:48:25 Breathin g painful 25354028 Completed 201102/23/2014 RECORDED 02/14/20 12 10:48AM BY CLAUDY CHAUHAN ON/JEMMA zacarias MD [address] [facility] [address], [place], [address], [facility] 6 08:48:25 Chronic kidney disease stage 1 503632731 Active Christopher zacarias MD [address] [address], [place], [address], [facility] 6 15:59:58 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 Cognitiv e delay Christopher zacarias MD [address] [facility] [address], [place], [address], [facility] 6 08:48:25 Cough 62254844 Completed 201102/23/2014 RECORDED 02/14/20 12 11:13AM BY CHRISTOPHER JOHN MD, MARYATI ON/ADDEN DUM Christopher zacarias MD [address] [facility] [address], [place], [address], [facility] 6 08:48:25 Single major depressi ve episode Active Christopher zacarias MD [address] [facility] [address], [facility] [place], [address], [facility] 6 08:48:25 Renal disorder due to type 2 diabetes mellitus 473417547 Active Christopher zacarias MD [address] [facility] [address], [place], [address], [facility] 6 15:59:58 Dysuria 77268667 Completed 201102/23/2014 RECORDED 02/14/20 12 10:48AM BY CLAUDY CHAUHAN ON/ADDEN DUM Christopher zacarias MD [address] [facility] [address], [place], [address], [facility] 6 08:48:26 Follow-u p encounte r Completed 201102/23/2014 RECORDED 04/24/20 12 11:25AM BY CLAUDY CHAUHAN ON/ADDEN DUM Christopher zacarias MD [address] [facility] [address], [facility] [place], [address], [facility] 6 08:48:26 Gastroes ophageal reflux disease 129889919 Active Had a pH probe that was positive December 2015 and a manometr y study that was also positive December 2015 Christopher zacarias MD [address] [facility] [address], [place], [address], [facility] 6 12:44:09 Chronic nonalcoh olic liver disease 86803626 Active Christopher zacarias MD [address] [facility] [address], [place], [address], [facility] 6 08:48:25 Influenz a vaccine needed [id number] 06 Completed 201302/23/2014 RECORDED 08/10/19 14 3:10PM BY DINA DE SANTIAGO MA, MARYATI ON/ADDEN DUM Christopher zacarias MD [address] [facility] [address], [place], [address], [facility] 6 08:48:26 Disorder of hair AND/OR hair follicle Completed 200702/23/2014 RESOLVED DATE: 12/04/19 08; RECORDED 12/04/19 08 12:56PM BY CHRISTOPHER JOHN MD, MARYATI ON/ADD DUM Christopher zacarias MD [address] [facility] [address], [place], [address], [facility] 6 08:48:25 Bobby ng [id number] Completed 201102/23/2014 RECORDED 02/14/20 12 10:49AM BY JULES PALMA I, CLAUDY ON/ADDEN DUM Christopher zacarias MD [address] [facility] [address], [place], [address], [facility] 6 08:48:25 Adult health examinat ion Completed 201306/02/2014 RECORDED 12/16/19 14 2:40PM BY JULES PALMA I, OFFICE VISIT Christopher zacarias MD [address] [facility] [address], [place], [address], [facility] 6 08:48:26 General examinat ion of patient Completed 200702/23/2014 RECORDED 12/04/19 08 12:56PM BY CHRISTOPHER JOHN MD, ANNOTATI ON/ADDBELIA zacarias MD [address] [facility] [address], [place], [address], [facility] 6 08:48:26 Genital finding 174914757 Completed 201102/23/2014 RECORDED 02/14/20 12 10:49AM BY CLAUDY CHAUHAN ON/JEMMA zacarias MD [address] [facility] [address], [facility] [place], [address], [facility] 6 08:48:26 Headache 80924662 Completed 201102/23/2014 RECORDED 02/14/20 12 10:49AM BY CLAUDY CHAUHAN ON/JEMMA zacarias MD [address] [facility] [address], [place], [address], [facility] 6 08:48:25 Hemorrha ge of rectum and anus 359701204 Completed 200702/23/2014 RESOLVED DATE: 12/04/19 08; RECORDED 12/04/19 08 12:56PM BY CHRISTOPHER JOHN MD, CLAUDY ON/JEMMA zacarias MD [address] [facility] [address], [place], [address], [facility] 6 08:48:26 Pure hypercho lesterol emia 341906997 Completed 201202/23/2014 RECORDED 10/18/19 13 1:50PM BY CLAUDY CHAUHAN/JEMMA zacarias MD [address], [place], [address], [facility] 6 08:48:25 Glucose level outside referenc e range 036576792 Completed 201102/23/2014 RECORDED 02/14/20 12 10:48AM BY CLAUDY CHAUHAN ON/JEMMA zacarias MD [address] [facility] [address], [place], [address], [facility] 6 08:48:26 Incontin ence of feces 67657213 Completed 201102/23/2014 RECORDED 02/14/20 12 10:49AM BY CLAUDY CHAUHAN ON/JEMMA zacarias MD [address] [facility] [address], [place], [address], [facility] 6 08:48:26 Bundle branch block 8716447 Completed 201302/23/2014 IMPRESSI ON: NONSECIF IC. WILL BE CHECKING K; RECORDED 12/16/19 14 9:10AM BY CLAUDY CHAUHAN ON/JEMMA zacarias MD [address] [facility] [address], [place], [address], [facility] 6 08:48:25 Irritabl e bowel syndrome 45634405 Completed 201102/23/2014 RECORDED 02/14/20 12 10:49AM BY CLAUDY CHAUHAN ON/JEMMA zacarias MD [address] [facility] [address], [place], [address], [facility] 6 08:48:25 Low back pain 722803924 Completed 201302/23/2014 IMPRESSI ON: APPEARS MUSCULAR ; TREAT WITH PAIN MEDS FOR 5 DAYS AND RETURN NEXT WEEK FOR REEVALUA TION.; RECORDED 08/17/19 14 8:56AM BY MAGGIE SMITH MA, ANNOTATI ON/JEMMA zacarias MD [address], [place], [address], [facility] 7 12:57:02 Disorder of upper respirat ory system 084728689 Completed 201102/23/2014 RECORDED 02/14/20 12 10:48AM BY CLAUDY CHAUHAN ON/JEMMA zacarias MD [address], [place], [address], [facility] 6 08:48:26 Nasal polyp Completed 201302/23/2014 IMPRESSI ON: HE DID FLONASE BUT DID NOT SEEM TO HELP. HE FEELS LIKE IT IS STILL THERE; RECORDED 12/16/19 14 9:10AM BY CLAUDY CHAUHAN ON/JEMMA zacarias MD [address], [place], [address], [facility] 6 08:48:25 Patient status finding [id number] Completed 201303/04/2014 RECORDED 12/16/19 14 2:33PM BY JULES PALMA I, OFFICE VISIT Christopher zacarias MD [address], [place], [address], [facility] 6 08:48:26 Patient status finding [id number] Completed 201202/23/2014 RECORDED 04/07/20 13 8:51AM BY CLAUDY CHAUHAN ON/JEMMA zacarias MD [address], [place], [address], [facility] 6 08:48:26 Obesity 740077853 Completed 07/06/2017 Siobhan Wilkins MA null, [facility] 7 09:04:55 Obstruct sylvia sleep apnea syndrome 09157615 Active Currentl y has a machine which helps but he uses it only intermit tently Christopher zacarias MD [address], [place], [address], [facility] 6 08:48:25 Finding relating to sexualit y and sexual activity 365768845 Completed 201102/23/2014 RECORDED 02/14/20 12 10:48AM BY CLAUDY CHAUHAN ON/JEMMA zacarias MD [address] [facility] [address], [place], [address], [facility] 6 08:48:26 Eruption [id number] Completed 201102/23/2014 RECORDED 02/14/20 12 10:48AM BY CLAUDY CHAUHAN ON/JEMMA zacarias MD [address] [facility] [address], [place], [address], [facility] 6 08:48:25 Adult health examinat ion Completed 201102/23/2014 RECORDED 02/14/20 12 10:48AM BY CLAUDY CHAUHAN ON/JEMMA zacarias MD [address] [facility] [address], [place], [address], [facility] 6 08:48:26 Right upper quadrant pain [id number] Completed 201202/23/2014 IMPRESSI ON: THIS HAS RESOLVED BUT GIVEN HIS SX AND H/O [place] ES FROM 2-3 YRS AGO WE WILL DO ANOTHER U/S AND REFER HIM TO SURGERY FOR EVALUATI ON.; RECORDED 02/13/20 13 10:34AM BY CLAUDY CHAUHAN ON/JEMMA zacarias MD [address] [facility] [address], [place], [address], [facility] 6 08:48:26 Administ ration of diphther ia, pertussi s, and tetanus vaccine Completed 201202/23/2014 RECORDED 03/27/20 13 2:29PM BY MAGGIE SMITH MA, CLAUDY ON/JEMMA zacarias MD [address] [facility] [address], [place], [address], [facility] 6 08:48:26 Dermatop hytosis of the perianal area Completed 201102/23/2014 RECORDED 02/14/20 12 10:48AM BY CLAUDY CHAUHAN ON/JEMMA zacarias MD [address] [facility] [address], [place], [address], [facility] 6 08:48:25 Type 2 diabetes mellitus without complica tion [id number] Completed 201102/23/2014 IMPRESSI ON: TOLERATI NG MEDS WELL; WILL CHECK HIS LABS NEXT VISIT.; RECORDED 03/17/20 12 8:32AM BY CLAUDY CHAUHAN ON/JEMMA zacarias MD [address] [facility] [address], [place], [address], [facility] 6 08:48:25 Constipa tion 94627693 Completed 201202/23/2014 RECORDED 02/13/20 13 10:34AM BY CLAUDY CHAUHAN ON/ADDEN DUM Siobhan Wilkins MA null, [facility] 7 09:04:14 Developm ental delay 528132096 Completed 201102/23/2014 RECORDED 02/14/20 12 10:48AM BY CLAUDY CHAUHAN ON/ADDBELIA zacarias MD [address] [facility] [address], [place], [address], [facility] 6 08:48:25 Vitamin D deficien cy 96864978 Active Christopher zacarias MD [address], [facility] [place], [address], [facility] 6 08:48:25 Constipa tion 32654980 Completed 07/06/2017 Siobhan Wilkins MA null, [facility] 7 09:04:14 Abdomina l pain 74993451 Completed 201303/15/2014 RECORDED 12/16/19 14 2:30PM BY EVERTON DE LA O MA, MARYATI ON/ADDEN DUM Siobhan Wilkins MA null, [facility] 7 09:04:19 Epigastr ic pain 89578801 Completed 201103/15/2014 RECORDED 02/14/20 12 10:48AM BY CLAUDY CHAUHAN ON/ADDEN ARIN zacarias MD [address] [facility] [address], [place], [address], [facility] 6 08:48:26 Acute pharyngi tis 168027318 Completed 201103/15/2014 RECORDED 02/14/20 12 10:48AM BY CLAUDY CHAUHAN ON/JEMMA zacarias MD [address] [facility] [address], [place], [address], [facility] 6 08:48:25 Allergic rhinitis 85238975 Completed 201103/15/2014 RECORDED 02/14/20 12 10:48AM BY CLAUDY CHAUHAN ON/ADDEN ARIN zacarias MD [address] [facility] [address], [place], [address], [facility] 6 08:48:25 Sleep apnea 93068671 Completed 201103/15/2014 RECORDED 02/14/20 12 10:48AM BY CLAUDY CHAUHAN ON/ADDEN ARIN zacarias MD [address] [facility] [address], [place], [address], [facility] 6 08:48:25 Acute asthma 223062290 Completed 201103/15/2014 IMPRESSI ON: HE HAS IMPROVED AND WILL CONTINUE WITH CURRENT MGMT; RECORDED 07/15/20 12 9:53AM BY CLAUDY CHAUHAN ON/JEMMA zacarias MD [address] [facility] [address], [place], [address], [facility] 6 08:48:25 Backache 251434743 Completed 201303/15/2014 IMPRESSI ON: ONGOING ISSUE FOR ALMOST A YR. SWITCH TRAMADOL TO FLEXERIL FOR SHORT TERM TREATMEN T. COUNSELMikie Watkins DROWSINE SS. X-RAY TO CHECK FOR SCOLIOSI S AND R/O ANKYLOSI NG SPONDYLI TIS; RECORDED 11/11/19 14 1:48PM BY MAGGIE SMITH MA, ANNOTATI ON/JEMMA zacarias MD [address] [facility] [address], [place], [address], [facility] 6 08:48:25 Pain in thoracic spine 733047244 Completed 201103/15/2014 IMPRESSI ON: APPEARS MUSCULAR , RECOMMEN D NSAIDS, STRETCHI NG EXERCISE S, HEATING PAD. ALSO DISCUSSE D GENERAL AMELIEAN CE OF WEIGHT LOSS( T/EXERCI SE); RECORDED 02/14/20 12 10:48AM BY CLAUDY CHAUHAN ON/JEMMA zacarias MD [address] [facility] [address], [place], [address], [facility] 6 08:48:25 Intestin al malabsor ption 255523584 Completed 201203/15/2014 IMPRESSI ON: S/P CHOLECYS TECTOMY. HANDOUT BROWARD HEALTH IMPERIAL POINT ABOUT THIS REVIEWED . EAT SMALL FREQUENT MEALS, MINIMIZE FATTY FOODS. MINIMIZE CAFFEINE . IF NOT IMPROVIN G, CAN CALL FOR RX FOR CHOLESTY RAMINE. THIS CONDITIO N SHOULD HOPEFULL Y RESOLVE SOON SINCE MOST PEOPLE GET BETTER A FEW MONTHS AFTER CHOLECYS TECTOMY. ; RECORDED 04/07/20 13 8:51AM BY CLAUDY CHAUHAN ON/JEMMA zacarias MD [address], [place], [address], [facility] 6 08:48:25 Chest pain 14163681 Completed 201103/15/2014 RECORDED 02/14/20 12 10:49AM BY CLAUDY CHAUHAN ON/JEMMA zacarias MD [address] [facility] [address], [place], [address], [facility] 6 08:48:25 Breathin g painful 78957818 Completed 201103/15/2014 RECORDED 02/14/20 12 10:48AM BY CLAUDY CHAUHAN ON/JEMMA zacarias MD [address] [facility] [address], [place], [address], [facility] 6 08:48:25 Cough 64949900 Completed 201103/15/2014 RECORDED 02/14/20 12 11:13AM BY CHRISTOPHER JOHN MD, CLAUDY ON/JEMMA zacarias MD [address] [facility] [address], [place], [address], [facility] 6 08:48:25 Dysuria 42686506 Completed 201103/15/2014 RECORDED 02/14/20 12 10:48AM BY CLAUDY CHAUHAN/JEMMA zacarias MD [address] [facility] [address], [place], [address], [facility] 6 08:48:26 Follow-u p encounte r Completed 201103/15/2014 RECORDED 04/24/20 12 11:25AM BY CLAUDY CHAUHAN ON/ADDEN DUM Christopher zacarias MD [address], [place], [address], [facility] 6 08:48:26 Influenz a vaccine needed [id number] 06 Completed 201303/15/2014 RECORDED 08/10/19 14 3:10PM BY DINA DE SANTIAGO MA, CLAUDY ON/ADDEN DUM Christopher zacarias MD [address] [facility] [address], [place], [address], [facility] 6 08:48:26 Disorder of hair AND/OR hair follicle Completed 200703/15/2014 RESOLVED DATE: 12/04/19 08; RECORDED 12/04/19 08 12:56PM BY CHRISTOPHER JOHN MD, CLAUDY ON/ADD ARIN zacarias MD [address] [facility] [address], [place], [address], [facility] 6 08:48:25 [place] e 545199696 Completed 201103/15/2014 RECORDED 02/14/20 12 10:49AM BY CLAUDY CHAUHAN ON/JEMMA zacarias MD [address] [facility] [address], [place], [address], [facility] 6 08:48:25 General examinat ion of patient Completed 200703/15/2014 RECORDED 12/04/19 08 12:56PM BY CHRISTOPHER JOHN MD, CLAUDY ON/JEMMA zacarias MD [address] [facility] [address], [place], [address], [facility] 6 08:48:26 Genital finding 369328441 Completed 201103/15/2014 RECORDED 02/14/20 12 10:49AM BY CLAUDY CHAUHAN ON/JEMMA zacarias MD [address] [facility] [address], [place], [address], [facility] 6 08:48:26 Headache 84680564 Completed 201103/15/2014 RECORDED 02/14/20 12 10:49AM BY CLAUDY CHAUHAN ON/JEMMA zacarias MD [address], [place], [address], [facility] 6 08:48:25 Hemorrha ge of rectum and anus 342319788 Completed 200703/15/2014 RESOLVED DATE: 12/04/19 08; RECORDED 12/04/19 08 12:56PM BY CHRISTOPHER JOHN MD, ANNOTATI ON/JEMMA zacarias MD [address] [facility] [address], [place], [address], [facility] 6 08:48:26 Pure hypercho lesterol emia 100167598 Completed 201203/15/2014 RECORDED 10/18/19 13 1:50PM BY CLAUDY CHAUHAN/JEMMA zacarias MD [address] [facility] [address], [place], [address], [facility] 6 08:48:25 Glucose level outside referenc e range 518745674 Completed 201103/15/2014 RECORDED 02/14/20 12 10:48AM BY CLAUDY CHAUHAN/JEMMA zacarias MD [address] [facility] [address], [place], [address], [facility] 6 08:48:26 Incontin ence of feces 52381808 Completed 201103/15/2014 RECORDED 02/14/20 12 10:49AM BY CLAUDY CHAUHAN ON/JEMMA zacarias MD [address], [place], [address], [facility] 6 08:48:26 Bundle branch block 1739735 Completed 201303/15/2014 IMPRESSI ON: NONSECIF IC. WILL BE CHECKING K; RECORDED 12/16/19 14 9:10AM BY CLAUDY CHAUHAN ON/JEMMA zacarias MD [address], [place], [address], [facility] 6 08:48:25 Irritabl e bowel syndrome 43883062 Completed 201103/15/2014 RECORDED 02/14/20 12 10:49AM BY CLAUDY CHAUHAN ON/JEMMA zacarias MD [address], [place], [address], [facility] 6 08:48:25 Low back pain 510965445 Completed 201303/15/2014 IMPRESSI ON: APPEARS MUSCULAR ; TREAT WITH PAIN MEDS FOR 5 DAYS AND RETURN NEXT WEEK FOR REEVALUA TION.; RECORDED 08/17/19 14 8:56AM BY MAGGIE SMITH MA, ANNOTATI ON/JEMMA zacarias MD [address], [place], [address], [facility] 7 12:57:02 Disorder of upper respirat ory system 087299204 Completed 201103/15/2014 RECORDED 02/14/20 12 10:48AM BY CLAUDY CHAUHAN ON/JEMMA zacarias MD [address], [place], [address], [facility] 6 08:48:26 Nasal polyp Completed 201303/15/2014 IMPRESSI ON: HE DID FLONASE BUT DID NOT SEEM TO HELP. HE FEELS LIKE IT IS STILL THERE; RECORDED 12/16/19 14 9:10AM BY CLAUDY CHAUHAN ON/JEMMA zacarias MD [address] [facility] [address], [place], [address], [facility] 6 08:48:25 Finding relating to sexualit y and sexual activity 826386164 Completed 201103/15/2014 RECORDED 02/14/20 12 10:48AM BY CLAUDY CHAUHAN ON/JEMMA zacarias MD [address] [facility] [address], [place], [address], [facility] 6 08:48:26 Eruption 613108300 Completed 201103/15/2014 RECORDED 02/14/20 12 10:48AM BY CLAUDY CHAUHAN ON/JEMMA zacarias MD [address] [facility] [address], [place], [address], [facility] 6 08:48:25 Right upper quadrant pain 248451688 Completed 201203/15/2014 IMPRESSI ON: THIS HAS RESOLVED BUT GIVEN HIS SX AND H/O [place] ES FROM 2-3 YRS AGO WE WILL DO ANOTHER U/S AND REFER HIM TO SURGERY FOR EVALUATI ON.; RECORDED 02/13/20 13 10:34AM BY CLAUDY CHAUHAN ON/JEMMA zacarias MD [address] [facility] [address], [place], [address], [facility] 6 08:48:26 Administ ration of diphther ia, pertussi s, and tetanus vaccine Completed 201203/15/2014 RECORDED 03/27/20 13 2:29PM BY MAGGIE SMITH MA, ANNOTATI ON/ADDEN DUM Christopher zacarias MD [address], [facility] [place], [address], [facility] 6 08:48:26 Dermatop hytosis of the perianal area Completed 201103/15/2014 RECORDED 02/14/20 12 10:48AM BY MARY CHAUHANATI ON/ADDEN DUM Christopher zacarias MD [address] [facility] [address], [place], [address], [facility] 6 08:48:25 Type 2 diabetes mellitus without complica tion 062839524 Completed 201103/15/2014 IMPRESSI ON: TOLERATI NG MEDS WELL; WILL CHECK HIS LABS NEXT VISIT.; RECORDED 03/17/20 12 8:32AM BY MARY CHAUHANATI ON/ADDEN DUM Christopher zacarias MD [address] [facility] [address], [place], [address], [facility] 6 08:48:25 Constipa tion 13704853 Completed 201203/15/2014 RECORDED 02/13/20 13 10:34AM BY MARY CHAUHANATI ON/ADDEN DUM Siobhan Wilkins MA null, [facility] 7 09:04:14 Developm ental delay 260299319 Completed 201103/15/2014 RECORDED 02/14/20 12 10:48AM BY MARY CHAUHANATI ON/ADDEN DUM Christopher zacarias MD [address] [facility] [address], [place], [address], [facility] 6 08:48:25 Abdomina l pain 61551732 Completed 07/06/2017 Siobhan Wilkins MA null, [facility] 7 09:04:19 Pain in elbow 33017242 Completed 06/02/2014 Christopher zacarias MD [address], [place], [address], [facility] 6 08:48:25 Acute asthma 999805793 Completed 06/02/2014 Christopher zacarias MD [address], [place], [address], [facility] 6 08:48:25 Atypical chest pain 425792551 Active He had a cardiac cath November 2017 which was normal. EF=40%. Christopher zacarias MD [address], [place], [address], [facility] 8 19:34:43 Hypercho lesterol emia 21811716 Completed 06/03/2017 Christopher zacarias MD [address], [place], [address], [facility] 7 16:54:41 Herpes zoster ophthalm icus 27276771 Completed 12/17/2014 thought to be on exam, but optho had negative exam Christopher zacarias MD [address], [place], [address], [facility] 6 08:48:25 Sacroili ac joint pain 131166657 Active Christopher zacarias MD [address], [place], [address], [facility] 6 08:48:25 Irritabl e bowel syndrome 80067197 Active Christopher zacarias MD [address], [place], [address], [facility] 6 08:48:25 Headache 52545575 Active Seen by Dr Ángel zacarias MD [address], [place], [address], [facility] 6 12:44:09 Upper respirat ory infectio n 96228202 Completed 07/06/2017 AIDEE Morrow, [facility] 7 09:05:06 Postural dizzines s 897733119 Active Christopher zacarias MD [address], [facility] [place], [address], [facility] 6 08:48:25 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 Christopher zacarias MD [address] [facility] [address], [facility] [place], [address], [facility] 6 08:48:26 Gastriti s 3767019 Completed 07/06/2017 AIDEE Morrow, [facility] 7 09:05:03 Type 2 diabetes mellitus 93373478 Completed 06/03/2017 Christopher zacarias MD [address] [facility] [address], [facility] [place], [address], [facility] 7 11:26:49 Morbid obesity 543801085 Completed 07/06/2017 AIDEE Morrow, [facility] 7 09:04:46 Dizzines s 232951836 Completed 07/06/2017 AIDEE Morrow, [facility] 7 09:04:36 Fatigue 43673208 Active Christopher zacarias MD [address] [facility] [address], [facility] [place], [address], [facility] 6 08:48:25 Tinea cruris 547221057 Active Christopher zacarias MD [address], [place], [address], [facility] 6 08:48:25 Allergic rhinitis 14760801 Active Christopher zacarias MD [address], [place], [address], [facility] 6 12:44:09 Body mass index 40+ - severely obese 808582772 Active Christopher zacarias MD [address], [place], [address], [facility] 6 15:59:58 Blood in urine 53253906 Active 2015 Urine studies normal. Probably secondar y to kidney stone. Christopher zacarias MD [address] [facility] [address], [place], [address], [facility] 6 08:39:51 Solitary nodule of lung 125614006 Active 2016 3-mm pleural- based LLL; not high risk; no f/u needed. Christopher zacarias MD [address] [facility] [address], [place], [address], [facility] 7 09:55:13 Nasal congesti on 20314150 Completed 201607/06/2017 Siobhan Wilkins MA [facility], [facility] 7 09:05:09 Low back pain 735705939 Active 2016 Followed by [facility] Christopher zacarias MD [address] [facility] [address], [place], [address], [facility] 7 12:57:02 Hyperlip idemia 36113841 Active 2016 Christopher zacarias MD [address] [facility] [address], [place], [address], [facility] 7 16:55:27 Problem Notes None recorded. Procedures Surgical History Date Name Laterality Status Provider Name and Address Organization Details Recorded Time 018 Diabetic Foot Exam (Monofilament) completed Jules Diana [facility] 01/03/2018 13:04:07 018 Other completed Rody Mckay [facility] 11/13/2017 11:19:19 018 Tte w/doppler complete completed Kristie Hernandez [facility] 11/01/2017 16:22:31 018 Coronary artery angio s&i completed Kristie Hernandez [facility] 11/01/2017 09:05:04 016 Other completed Christopher Jacob MD [address], [place], [address], [facility] 01/16/2016 08:48:26 015 Colonoscopy completed Nida May [facility] 03/13/2016 21:33:29 014 Nebulizer tx completed BRENT Morocho [address] [facility] [address] [facility], [place], [address], [facility] 05/14/2014 11:15:04 013 Cholecystectomy completed Christopher Jacob MD [address], [place], [address], [facility] 04/01/2014 17:29:52 Imaging Results Imaging Date Name [...] Name and Address Organization Details Recorded Time 99317 No known allergy (situatio n) Not available Not available Not available Not available 02/16/2014 14058 6003 SNOMED Erich Marinelli [facility] [address] [facility] [address], [place], [address], [facility] 5 16:13:47 No known drug allergies Medications [...] 10:31AM BY CHRISTOPHER JOHN MD, MEDICATI ON [facility] CTIVATIO N; Not Available Not Available Not [...] 2:50PM BY CHRISTOPHER JOHN MD, MEDICATI ON [facility] CTIVATIO N; Not Available Not Available Not Available lisinopri l 5 mg tablet 1 daily active Not Available Not Available Not Available metoprolo l succinate ER 25 mg tablet,ex tended release 24 hr Take 1 tablet by oral route for 30 days. active Not Available Not Available No t Available Nasonex 50 mcg/actua tion [place] EACH NOSTRIL DAILY 02/10 completed RECORDED 02/13/20 12 2:15PM BY CHRISTOPHER JOHN MD, MEDICATI ON [facility] CTIVATIO N; Not Available Not Available Not [...] Updated DateTime 8 175.26 cm 49.6 kg/m2 395192. 04 g 92 /min 98 % 98 % 98.2 [degF] 118 mm[Hg] 76 mm[Hg] Jules Diana [facility] 8 13:17:49 Date Recorded Body height Body mass index (BMI) Body weight Heart rate Oxygen saturation Oxygen saturation in Arterial blood by Pulse oximetry Body temperature Systolic blood pressure Diastolic blood pressure Provider Name and Address Organization Details Last Updated DateTime 8 175.26 cm 48.1 kg/m2 077744. 11 g 94 /min 97 % 97 % 98 [degF] 118 mm[Hg] 72 mm[Hg] Jules Diana [facility] 8 13:07:22 Date Recorded Body height Oxygen saturation Oxygen saturation in Arterial blood by Pulse oximetry Heart rate Body temperature Body mass index (BMI) Body weight Systolic blood pressure Diastolic blood pressure Provider Name and Address Organization Details Last Updated DateTime 8 175.26 cm 97 % 97 % 88 /min 98.6 [degF] 46.4 kg/m2 205913. 7 g 116 mm[Hg] 64 mm[Hg] Hilda Serna MA [facility] 8 15:16:11 Social History Question Answer Notes LastModified by Organizat ion Details LastModified Time Tobacco Smoking Status Never Smoker Not Available [employer] 06/07/2020 03:36:35 Do You Have An Advance Directive? Yes [id number] Information not available 06/07/2020 What Is Your Level Of Alcohol Consumption? None [id number] Information not available 06/07/2020 Is Blood Transfusion Acceptable In An Emergency? Yes [id number] Information not available 06/07/2020 What Is Your Level Of Caffeine Consumption? Occasional [id number] Information not available 06/07/2020 How Much Tobacco Do You Chew? None [id number] Information not available 06/07/2020 Are You Currently Employed? No [id number] Information not available 06/07/2020 What Type Of Diet Are You Following? REGULAR [id number] Information not available 06/07/2020 Which Illicit Or Recreational Drugs Have You Used? 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 Yes [id number] Information not available 06/07/2020 Live Alone Or With Others? With Others Mother, 3 Children, 3 Brothers Information not available 03/04/2014 Do You Take Precautions To Prevent Distracted Driving? Yes [email or web address] Information not available 03/01/2015 How Often Do You Need To Have Someone Help You When You Read Instructions, Pamphlets, Or Other Written Material From Your Doctor Or Pharmacy? Sometimes [email or web address] Information not available 05/17/2016 Have You Served In The ? No Takipi Information not available 05/17/2016 What Was The Date Of Your Most Recent Tobacco Screening? 03/31/2018 [id number] Information not available 06/07/2020 How Many Children Do You Have? 3 [id number] Information not available 06/07/2020 Seat Belts Used Routinely No [email or web address] Information not available 03/01/2015 Are You Sexually Active? No [id number] Information not available 06/07/2020 Smoke Alarm In Home Yes violetthang Information not available 03/01/2015 Do You Use Sunscreen Routinely? No [id number] Information not available 06/07/2020 Sex: Unknown Functional Status Question Answer Note LastModified by Organization D etails LastModified Time Are you able to care for yourself? No [id number] Information n ot available 06/07/2020 What is your exercise level? None [id number] Information not available 06/07/2020 Mental Status None [...] virus, quadrivalent, PF 5 completed Not Available [facility] 08/22/2019 02:22:01 Influenza, split virus, quadrivalent, PF 6 completed Not Available [facility] 08/22/2019 02:22:04 Influenza, split virus, quadrivalent, PF 7 completed Not Available [facility] 08/22/2019 02:22:13 Influenza, split virus, trivalent, PF 4 completed Not Available [facility] 08/22/2019 02:21:57 pneumococcal polysaccharide PPV23 5 completed Not Available [facility] 08/22/2019 02:21:42 Td (adult), 2 Lf tetanus toxoid, preservative free, adsorbed 5 completed Not Available [facility] 02/16/2014 14:12:57 Influenza, split virus, trivalent, preservative 7 completed Not Available [facility] 02/16/2014 14:12:57 Influenza, split virus, trivalent, preservative 8 completed Not Available [facility] 02/16/2014 14:12:57 Influenza, split virus, trivalent, preservative 9 completed Not Available [facility] 02/16/2014 14:12:57 Influenza, split virus, trivalent, preservative 0 completed Not Available [facility] 02/16/2014 14:12:57 Influenza, split virus, trivalent, preservative 1 completed Not Available [facility] 02/16/2014 14:12:57 Influenza, split virus, trivalent, preservative 2 completed Not Available [facility] 02/16/2014 14:12:57 Tdap 3 completed Not Available [facility] 02/16/2014 14:12:58 influenza, seasonal, intradermal, preservative free 3 completed Not Available [facility] 02/16/2014 14:12:58 Past Encounters Encounter ID Performer Location Encounter Start Date Encounter Closed Date Diagnosis/Indication Diagnosis SNOMED-CT Code Diagnosis ICD10 Code Diagnosis Note [id number] Jules Diana Main Office [address] [facility] [address] [place] [address] 03/04/2014 09:13:09 03/04/2014 11:04:53 Renal disorder due to type 2 diabetes mellitus 101155522 Constipation 44779351 ab domnal pain probably secondary to constipati on; possibly from IBS. Will treat and f/u in 1 month. Chronic ki dney disease stage 1 005496141 Obesity 619004482 will follow up in 1 month for weight check [id number] [employer] [address] [facility] [address] [facility] [place] [address] 11/05/2006 00:00:00 [id number] [employer] [address] [place] [address] 11/05/2006 00:00:00 [id number] [employer] [address] [place] [address] 11/05/2006 00:00:00 [id number] [employer] [address] [place], [place] [address] 2 11/05/2006 00:00:00 [id number] [employer] [address] [facility] [address] [place] [address] 2 07/27/2006 00:00:00 [id number] [employer] [address] [facility] [address] [place] [address] 2 07/27/2006 00:00:00 [id number] [employer] [address] [facility],[address] [place] [address] 2 07/27/2006 00:00:00 [id number] [employer] [address] [facility],[address] [place] [address] 2 07/27/2006 00:00:00 [id number] [employer] [address] [facility] [address] [place] [address] 2 04/17/2006 00:00:00 [id number] [employer] [address] [facility],[address] [place] [address] 2 04/17/2006 00:00:00 [id number] [employer] [address] [facility],[address] [place] [address] 2 04/17/2006 00:00:00 [id number] [employer] [address] [facility] [address] [place] [address] 2 10/25/2004 00:00:00 [id number] [employer] [address] [facility],[address] [place] [address] 2 09/06/2004 00:00:00 [id number] [employer] [address] [place] [address] 2 09/06/2004 00:00:00 [id number] [employer] [address] [place] [address] 2 12/26/2006 00:00:00 [id number] [employer] [address] [facility] [address] [place] [address] 2 12/26/2006 00:00:00 [id number] [employer] [address] [place] [address] 2 12/26/2006 00:00:00 [id number] [employer] [address] [facility],[address] [place] [address] 2 03/04/2007 00:00:00 [id number] [employer] [address] [facility],[address] [place] [address] 2 05/08/2007 00:00:00 [id number] [employer] [address] [facility],[address] [place] [address] 2 05/08/2007 00:00:00 [id number] [employer]ce [address] [facility],[address] [place] [address] 2 05/08/2007 00:00:00 [id number] [employer]ce [address] [facility],[address] [place] [address] 2 07/04/2007 00:00:00 [id number] [employer] [address] [facility],[address] [place] [address] 2 07/04/2007 00:00:00 [id number] [employer]ce [address] [facility],[address] [place] [address] 2 07/04/2007 00:00:00 [id number] [employer]ce [address] [facility],[address] [place] [address] 2 10/17/2007 00:00:00 [id number] [employer] [address] [facility],[address] [place] [address] 2 12/04/2007 00:00:00 [id number] [employer] [address] [place] [address] 2 12/04/2007 00:00:00 [id number] [employer] [address] [place] [address] 2 07/07/2008 00:00:00 [id number] [employer] erce [address] [place] [address] 2 07/07/2008 00:00:00 [id number] [employer] [address] [facility] [address] [place] [address] 2 07/07/2008 00:00:00 [id number] [employer] erce [address] [facility] [address] [place] [address] 2 09/13/2008 00:00:00 [id number] [employer]ce [address] [facility],[address] [place] [address] 2 05/31/2009 00:00:00 [id number] [employer]ce [address] [facility],[address] [place] [address] 2 05/31/2009 00:00:00 [id number] [employer]ce [address] [facility] [address] [place] [address] 2 05/31/2009 00:00:00 [id number] [employer]ce [address] [facility],[address] [place] [address] 2 10/27/2009 00:00:00 [id number] [employer]ce [address] [facility],[address] [place] [address] 2 03/24/2010 00:00:00 [id number] [employer]ce [address] [facility] [address] [place] [address] 2 03/24/2010 00:00:00 [id number] [employer] erce [address] [facility],[address] [place] [address] 2 04/03/2010 00:00:00 [id number] [employer]ce [address] [place] [address] 2 04/03/2010 00:00:00 [id number] [employer] erce [address] [place] [address] 2 04/11/2010 00:00:00 [id number] [employer] erce [address] [place] [address] 2 04/11/2010 00:00:00 [id number] auto[employer] erce [address] [place] [address] 2 04/25/2010 00:00:00 [id number] [employer]ce [address] [place] [address] 2 04/25/2010 00:00:00 [id number] [employer]ce [address] [facility] [address] [place] [address] 2 04/25/2010 00:00:00 [id number] auto[employer] erce [address] [place] [address] 2 04/25/2010 00:00:00 [id number] [employer]ce [address] [facility] [address] [place] [address] 2 04/26/2010 00:00:00 [id number] [employer] erce [address] [facility],[address] [place] [address] 2 04/26/2010 00:00:00 [id number] [employer]ce [address] [place] [address] 2 05/26/2010 00:00:00 [id number] auto[employer] erce [address] [place] [address] 2 05/26/2010 00:00:00 [id number] auto[employer] erce [address] [facility] [address] [place] [address] 2 05/26/2010 00:00:00 [id number] auto[employer] erce [address] [place] [address] 2 07/11/2010 00:00:00 [id number] auto[employer]ce [address] [place] [address] 2 08/11/2010 00:00:00 [id number] [employer] erce [address] [place] [address] 2 08/11/2010 00:00:00 [id number] auto[employer] erce [address] [place] [address] 2 08/11/2010 00:00:00 [id number] auto[employer] erce [address] [place] [address] 2 10/17/2010 00:00:00 [id number] auto[employer] erce [address] [facility] [address] [place] [address] 2 10/17/2010 00:00:00 [id number] auto[employer] erce [address] [facility],[address] [place] [address] 2 05/18/2011 00:00:00 [id number] auto[employer]ce [address] [facility],[address] [place] [address] 2 05/18/2011 00:00:00 [id number] [employer] erce [address] [facility] [address] [place] [address] 2 05/18/2011 00:00:00 [id number] auto[employer] erce [address] [facility],[address] [place] [address] 2 05/18/2011 00:00:00 [id number] [employer] erce [address] [facility] [address] [place] [address] 2 07/06/2011 00:00:00 [id number] auto[employer] erce [address] [facility] [address] [place] [address] 2 07/06/2011 00:00:00 [id number] auto[employer] erce [address] [facility],[address] [place] [address] 2 07/19/2011 00:00:00 [id number] auto[employer] erce [address] [place] [address] 2 07/19/2011 00:00:00 [id number] auto[employer] erce [address] [place] [address] 2 07/19/2011 00:00:00 [id number] auto[employer]ce [address] [place] [address] 2 09/19/2011 00:00:00 [id number] auto[employer] erce [address] [place] [address] 2 09/19/2011 00:00:00 [id number] auto[employer] erce [address] [facility] [address] [place] [address] 2 09/19/2011 00:00:00 [id number] auto[employer] erce [address] [facility],[address] [place] [address] 2 09/19/2011 00:00:00 [id number] auto[employer] erce [address] [facility],[address] [place] [address] 2 12/17/2011 00:00:00 [id number] auto[employer] erce [address] [facility],[address] [place] [address] 2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 Covered Member ID Estrada Member ID Guarantor Name 10/07/2017 2 [place] Waqas Vahe [id number] Waqas Vahe 10/07/2017 1 [place] [place] Waqas Vahe [id number] Waqas Vahe 10/09/2017 2 [place] Waqas Vahe [id number] Waqas Vahe 10/09/2017 1 [place] [employer] Waqas Vahe [id number] Waqas Vahe 01/03/2018 2 [place] Waqas Vahe [id number] Waqas Vahe 01/03/2018 1 [place] [employer] Waqas Vahe [id number] Waqas Vahe 01/24/2018 2 [place] Waqas Vahe [id number] Waqas Vahe 01/24/2018 1 [place] [employer] Waqas Vahe [id number] Waqas Vahe 03/31/2018 2 [place] Waqas Vahe [id number] Waqas Cotter 03/31/2018 1 [place] [employer] Waqas Cotter [id number] Waqas Cotter Notes Date Note Type Note Provider Name and Address Organization Details Recorded Time 10/07/2017 text/html Hospitalization Contact RecordReported bypatient.Follow UpHospital: [facility]; admit date: (Please enter in format 'MM/DD/YYYY') [...] yes 37 year old male presents to [facility] complaining of chest pain, weakness and near syncope. Patient transferred to [facility] for ACS rule out. ACS rule out, telemetry was uneventful. Exercise stress test ordered , impression:Abnormal Exercise Tolerance Test Mild Abnormality of Exercise Physiology No EKG Evidence of Ischemia House Wirer Helper PRITESH call to patient regarding discharge status [...] change in status . Christopher Jacob MD [address] [address], [place], [address], [facility] 10/07/2017 15:12:55 10/09/2017 text/html Hospitalization Contact RecordReported bypatient.Follow UpHospital: [facility]; admit date: (Please enter in format '/DD/YYYY') [...] yes 37 year old male presents to [facility] complaining of chest pain, weakness and near syncope. Patient transferred to [facility] for ACS rule out. ACS rule out, telemetry was uneventful. Exercise stress test ordered , impression:Abnormal Exercise Tolerance Test Mild Abnormality of Exercise Physiology No EKG Evidence of Ischemia House Wirer Helper PRITESH call to patient regarding discharge status [...] blood. He is scheduled to see a planishing press operator on October 14. Christopher Jacob MD [address] [address], [place], [address], [facility] 10/10/2017 08:09:26 01/03/2018 text/html Diabetes F/URepo rted [...] look into this. Christopher Jacob MD [address] [address], [place], [address], [facility] 01/04/2018 08:05:29 01/24/2018 text/html Hospitalization Contact RecordReported bypatient.Follow UpHospital: [facility]; admit date: (Please enter in format 'MM/DD/YYYY') [...] HLD, NIDDM, obesity, and GERD presented to [facility] ERc/o SOB and palpitations.. Nothing acute found. Patient admitted overnight for observation. CM contacted inpatient CM while patient was in hospital with idea of getting daily SNVs under [facility] for assistance with director of sports medicine as med non-compliance has been what has [...] Will continue outreach attempts. Christopher Jacob MD [address] [facility] [address], [place], [address], [facility] [place] 02/06/2018 17:00:54 03/31/2018 text/html pt states over p ast few wks felt warm, but no shaking chills, no fever occ gets head congestion, runny nose + h/o seasonal allergies - last used flonase several months ago -- seen by compressed gas equipment mechanic in past no pur nasal dc, tooth/jaw pain uses nasal pillows for eloisa also occ gets n, htbn - see at ER 2 months ago - mildly better - + h/o constipation, no use of softener - rev gi note 5.18 - h/o ibs-c Bety mcdonald, [facility] [place] 03/31/2018 16:18:26
--- OUTSIDE RECORDS SUMMARY | 2024-08-25 10:18 | XMS_ITS | Clinical Summary ---
Author Organization [facility] [address] [place] [address] [place] [phone] Phone Care Team Providers Care Supply Chain Specialist Name Role Phone Carmine Barton MD Primary Care Pr ovider Allergies Active Allergy Reactions Criticality Noted Date Comments Lisinopril Headache 01/13/2020 Other 06/20/2020 Positive patch to p-pheylenediamine Pollen Extracts 09/14/2019 Medications Medication Sig Dispensed Refills Start Date End Date Status aluminum-magnesium hydroxide-simethico ne (MAALOX MAX) 400-400-40 mg/5 mL suspension Take by mouth. Active insulin syringe-needle U-100 0.3 mL 31 gauge x 5/16 syringe USE 1 NEEDLE EVERY EVENING WITH INSULIN PEN 05/08/2023 Active blood-glucose meter,continuous (Dexcom G7 Truck Rental Manager) misc 1 Device by Not Applicable route. 09/10/2023 Active blood-glucose sensor (Dexcom G7 Sensor) device 1 Device by Not Applicable route. 09/10/2023 Active UNABLE TO FIND Inhale. Active dicyclomine (BENTYL) 10 mg capsule Take 1 capsule (10 mg total) by mouth. 01/31/2023 Active docusate sodium (COLACE) 100 mg capsule Take 1 capsule (100 mg total) by mouth. 01/31/2023 Active FREESTYLE LANCETS MISC 1 (one) time each day. 09/28/2022 Active blood sugar diagnostic (FreeStyle Lite Strips) test strip USE TO TEST DIRECTED EVERY DAY 05/02/2023 Active insulin glargine U-300 conc (Toujeo Max U-300 SoloStar) 300 unit/mL (3 mL) CONCENTRATED injection pen Inject 60 Units under the skin. 09/10/2023 Active polyethylene glycol (MIRALAX) 17 gram packet MIX 17 GRAMS IN WATER OR JUICE DIRECTED AND TAKE DAILY 08/26/2023 Active psyllium (Daily Fiber, psyllium-aspart,) 3.4 gram packet Take 1 packet by mouth. 08/17/2022 Active HumaLOG KwikPen Insulin 100 unit/mL injection pen Inject 100 Units under the skin 3 (three) times a day before meals. Active Farxiga 10 mg tablet Take 1 tablet (10 mg total) by mouth 1 (one) time each day. 05/05/2024 Active losartan (COZAAR) 25 mg tablet Take 1 tablet (25 mg total) by mouth 1 (one) time each day. 90 each 1 06/24/2024 12/21/2024 Active metoprolol succinate (TOPROL-XL) 25 mg 24 hr tablet Take 1 tablet (25 mg total) by mouth 1 (one) time each day. 90 each 1 06/24/2024 12/21/2024 Active atorvastatin (LIPITOR) 40 mg tablet Take 1 tablet (40 mg total) by mouth at bedtime. 90 each 1 06/24/2024 12/21/2024 Active pantoprazole (PROTONIX) 20 mg EC tabletIndications:G astroesophageal reflux disease without esophagitis Take 1 tablet (20 mg total) by mouth 2 (two) times a day. 360 each 06/24/2024 12/21/2024 Active albuterol HFA (Ventolin HFA) 90 mcg/actuation inhalerIndications: Mild persistent asthma without complication Inhale 2 puffs by mouth every 6 (six) hours if needed for wheezing. 12 g 1 06/24/2024 Active Additional Information Patient not taking.Reported on 08/24/2024 fluticasone propion-salmeteroL (AIRDUO RESPICLICK) 55-14 mcg/actuation aerosol powdr breath activated inhalerIndications: Mild persistent asthma without complication Inhale 1 puff by mouth 2 (two) times a day. Rinse mouth with water after use to reduce aftertaste and incidence of candidiasis. Do not swallow. 1 each 12 06/24/2024 06/24/2025 Active Active Problems Problem Noted Date Diagnosed Date Hypertriglyceridemia 06/24/2024 Morbid obesity with BMI of 45.0-49.9, adult 09/06 History of hematuria 09/27/2023 Overview (09/27/2023): Urology referral 07/24/16 Uncontrolled type 2 diabetes mellitus with hyperglycemia, with long-term current use of insulin 09/27/2023 Diabetes mellitus with microalbuminuria 02/01/20 Constipation 10/26/2022 Gastroparesis 02/15/2022 Learning disability 01/11/2021 NAFLD (nonalcoholic fatty liver disease) 021 Overview (09/27/2023): Non-alcohol. Most likely secondary to obesity, DM and elevated lipids. Liver ultrasound at [facility] on 07/07/2021 felt to be consistent with severe hepatic steatosis . LFTs checked on 08/17/2021 revealed elevated SGOT (66), SGPT (196) and alk phos (133). 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 Allergic rhinitis 11/24/2018 Solitary lung nodule 11/24/2018 Uncomplicated asthma 07/02/2018 Hypertension 06/06/2018 Hyperlipidemia 06/06/2018 Gastroesophageal reflux disease without esophagi tis 06/06/2018 Overview (09/27/2023): Follows with GI (Dr Pickett) at [facility] JAMIE on CPAP 06/06/2018 Encounters Date Type Department Care Team Description 08/24/2024 11:15 AM EST Consult General Surgery - [address] [place] [phone] Nelson Moe MD Pilonidal cyst 07/14/2024 8:00 AM EST Ancillary Procedure [facility] - [address] [place] [address] Atypical chest pain 06/24/2024 10:00 AM EST Consult Adult Medicine [address] [phone] Carmine Barton MD Preop cardiovascular exam (Primary Dx); Diabetes mellitus with microalbuminuria (CMS/HCC); Primary hypertension; Hypertriglyceridemia; Mixed hyperlipidemia; Gastroparesis; Gastroesophageal reflux disease without esophagitis; Irritable bowel syndrome with constipation; Pilonidal cyst; JAMIE on CPAP; Mild persistent asthma without complication; Atypical chest pain; Need for prophylactic vaccination and inoculation against influenza; Need for tetanus, diphtheria, and acellular pertussis (Tdap) vaccine; Need for hepatitis C screening test 06/24/2024 Telephone Adult Medicine [address] [phone] Carmine Barton MD 06/12/2024 Telephone Adult Medicine [address] [phone] Carmine Barton MD Dental Problem (NEEDS PRE-UP FOR DEEP CLEANING AT DENTIST) from Last 3 Months Immunizations Name Administration Dates Next Due Influenza Quadravalent, MDCK , 0.5ml, preservative free (Flucelvax) 6mo and older 06/07/2023,04/11/2022,05/18/2020 Influenza Quadravalent, MDCK , 0.5ml, with preservative (Flucelvax) 6mo and older 06/03/2017,05/17/2016,06/01/2015,05/12 Influenza trivalent, MDCK, 0 .5mL, preservative free (Flucelvax) 6mo and older 06/24/2024 Influenza, live, intranasal, quadrivalent (FluMist) 2yo to less than 50yo 05/17/2021 Pneumococcal polysaccharide 23 valent (Pneumovax 23) 2yo and older 09/02/2014 Td Tetanus diptheria (Tdvax) 7yo and older 09/06/2004 Tdap Tetanus diptheria acell ular pertussis (Boostrix; Adacel) 7yo and older 06/24/2024,02/12/2013 Surgical History Surgery Date Site/Laterality Comments CARDIAC CATHETERIZATION 10/24/2017 PROCEDURE: HISTORICAL CARDIAC CATH; COMMENT: For abnormal stress test. Mild luminal irregularities < 30 %. EF = 40 % COLONOSCOPY 06/28/2015 PROCEDURE: HISTORICAL COLONOSCOPY ESOPHAGOGASTRODUODENOSCOPY 06/28/2015 PROCEDURE: ME ESOPHAGOGASTRODUODENOSCOPY TRANSORAL DIAGNOSTIC ESOPHAGOGASTRODUODENOSCOPY 03/28/2017 PROCEDURE: ME ESOPHAGOGASTRODUODENOSCOPY TRANSORAL DIAGNOSTIC; COMMENT: [facility] - normal ESOPHAGOGASTRODUODENOSCOPY 08/04/2019 PROCEDURE: ME ESOPHAGOGASTRODUODENOSCOPY TRANSORAL DIAGNOSTIC; COMMENT: [facility] - Orr deployed at 36 cm. Normal stomach. Duodenitis. OTHER SURGICAL HISTORY 08/04/2019 PROCEDURE: ME GASTROESOPHAG REFLX TEST W/TELEMTRY PH ELTRD; COMMENT: [facility] - the study is negative for abnormal distal esophageal acid exposure on both days using Demeter score. ESOPHAGOGASTRODUODENOSCOPY 08/01/2021 PROCEDURE: ME ESOPHAGOGASTRODUODENOSCOPY TRANSORAL DIAGNOSTIC; COMMENT: Dr. Goldberg -bilious gastric fluid noted, otherwise unremarkable. Medical History Medical History Date Comments Atypical chest pain DX:Atypical chest pain; COMMENT: Underwent cardiac cath for abnormal stress test ADHD (attention deficit hype ractivity disorder) 11/24/2018 DX:ADHD (attention deficit hyperactivity disorder) Allergic rhinitis 11/24/2018 DX:Allergic rh initis Anxiety state 11/24/2018 DX:Anxiety state Chronic low back pain 11/24/2018 DX:Chronic low back pain Depression, major, single episode 11/24/2018 DX:Depression, major, single episode Esophageal dysphagia 11/24/2018 DX:Esophage al dysphagia Gastroesophageal reflux dise ase without esophagitis 06/06/2018 DX:Gastroesophageal reflux d isease without esophagitis History of hematuria 11/24/2018 DX:History of hematuria; COMMENT: Urology referral 07/24/16 Hyperlipidemia 06/06/2018 DX:Hyperlipidemi a Hypertension 06/06/2018 DX:Hypertension IBS (irritable bowel syndrome) 11/24/2018 D X:IBS (irritable bowel syndrome) Microalbuminuria 11/24/2018 DX:Microalbumin uria Morbid obesity with BMI of 4 5.0-49.9, adult (CMS/HCC) 11/24/2018 DX:Morbid obesity with BMI o f 45.0-49.9, adult (HCC) Nonalcoholic liver disease, chronic 11/24/2018 DX:Nonalcoholic liver disease, chronic 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 Most likely secondary to obesity, DM and elevated lipids. 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, managed as type 2 (HCC) Constipation DX:Constipation Fatty liver DX:Fatty liver Family History Medical History Relation Name Comments Diabetes Father age 50 Colon cancer Maternal Grandmother 60s or 70s Hypertension Maternal Grandmother Obesity Mother Breast cancer Mother's side Aunt(s) Diabetes Mother's side Aunt(s) Malignant Neop lastic Disease Eczema Son Other: food allergy Son Prostate cancer Neg Hx Relation Name Status Comments Father Maternal Grandmother Mother Mother's side Aunt(s) Alive Son Social History Tobacco Use Types Packs/Day Years Used Date Smoking Tobacco: Never Smokeless Tobacco: Never Alcohol Use Standard Drinks/Week Comments Not Currently 0 (1 standard drink = 0.6 oz pur e alcohol) Sex and Gender Information Value Date Recorded Sex Assigned at Not on file Gender Identity Not on file Sexual Orientation Not on file Job Start Date Occupation Industry Not on file Not on file Not on file Obstetrics History Last Filed Vital Signs Vital Sign Reading Time Taken Comments Blood Pressure 131/86 08/24/2024 10:58 AM EST Pulse 84 08/24/2024 10:58 AM EST Temperature 36.3 ??C (97.3 ??F) 06/24/2024 10:[address] Respiratory Rate 16 06/24/2024 10:16 AM EST Oxygen Saturation - - Inhaled Oxygen Concentration - - Weight 142 kg (313 lb 9.6 oz) 08/24/2024 10:58 A M EST Height 175.3 cm (5' 9 ) 08/24/2024 10:58 AM EST Body Mass Index 46.31 08/24/2024 10:58 AM EST Plan of Treatment Upcoming Encounters Date Type Department Care Team (Late st Contact Info) Description 08/27/2024 10:20 AM EST Office Visit Gastroenterology - [place] [address] [facility] [address] [place] [phone] Daniel Hall PA 175 [facility] [address] [place] [address] 09/02/2024 12:30 PM EST Office Visit Adult Medicine [facility] [address] [place] [phone] Catie Coko PA [address] [place] [address] 09/23/2024 11:30 AM EST Ancillary Procedure [facility] [address] [facility] [address] [place] [phone] Health Maintenance Due Date Last Done Comments Hepatitis A Vaccines (1 of 2 - Risk 2-dose series) 2001 Hepatitis B Vaccines (1 of 3 - 19+ 3-dose series) 2001 Pneumococcal Vaccine: Pediatrics (0 to 5 Years) and At-Risk Patients (6 to 64 Years) (2 of 2 - PCV) 09/02/2015 09/02/2014 HIV Screening 07/14/2022 Hepatitis C Screening 07/14/2022 Medicare Annual Wellness Visit 07/14/2022 Social Influencers of Health Screening 07/14/2022 Diabetes: Annual Foot Exam 12/21/2023 12/20/2022 Diabetes: Annual Urine Albumin-Creatinine Ratio (uACR) 01/31/2024 01/30/2023 Depression Screening 02/01/2024 01/31/2023 COVID-19 Vaccine ( season) 2024 12/30/2020, 12/09/2020 Diabetes: Annual Retina Eye Exam 07/10/2024 07/10/2023 Diabetes: Blood Sugar Control Test (HGBA1C) 11/03/2024 05/05/2024, 01/15/2024, 09/20/2023 Diabetes: Annual GFR (Glomerular Filtration Rate) 01/14/2025 01/15/2024 Hypertension/CHF/CAD Annual BMP Blood Test 01/14/2025 01/15/2024 Cholesterol Screening (Lipid Panel) 01/14/2029 01/15/2024, 01/15/2024, 06/11/2023 DTaP,Tdap,and Td Vaccines (4 - Td or Tdap) 06/24/2034 06/24/2024, 02/12/2013, 09/06/2004 Influenza Vaccine Completed 06/24/2024, , 04/11/2022, Additional history exists HIB Vaccines Aged Out No longer eligi ble based on patient's age to complete this topic HPV Vaccines Aged Out No longer eligi ble based on patient's age to complete this topic IPV Vaccines Aged Out No longer eligi ble based on patient's age to complete this topic MMR Vaccines Aged Out No longer eligi ble based on patient's age to complete this topic Meningococcal ACWY Vaccine Aged Out N o longer eligible based on patient's age to complete this topic RSV Immunization Patients Under 20 months Aged Out No longer eligible based on patient's age to complete this topic Varicella Vaccines Aged Out No longer eligible based on patient's age to complete this topic Procedures Procedure Name Priority Date/Time Associated Diagnosis Comments STRESS TEST ONLY EXERCISE Routine 07/14/2024 8:48 AM EST Atypical chest pain HEMOGLOBIN A1C Routine 09/20/2023 LIPID PANEL Routine 06/11/2023 from Last 3 Months or Most Recently Relevant to Health Maintenance Results * Exercise stress test (07/14/2024 8:48 AM EST) Pathologist [facility] Target HR 151 bpm CV STRESS ONLY Baseline HR 71 bpm CV STRES S ONLY Baseline SBP 136 mmHg CV STRE SS ONLY Baseline DBP 90 mmHg CV STRE SS ONLY O2 sat rest 97 % CV STRES S ONLY Peak HR 144 bpm CV STRESS ONLY Peak SBP 160 mmHg CV STRESS ONLY Peak DBP 90 mmHg CV STRESS ONLY Estimated workload 8.8 METS CV STRESS ONLY Rate Pressure Product 23,040.0 mmHg*bpm CV STRESS ONLY Percent HR 81 % CV STRESS ONLY Angina Index 0 CV STRE SS ONLY Max HR Percent 80 % CV ST RESS ONLY ST Depression (mm) 0 mm CV STRESS ONLY Anatomical Region Laterality Modality Cardiac Diagnost ic Narrative 07/14/2024 1:33 PM EST ?No EKG evidence of ischemia at 81% maximally predicted heart rate. ?Stress ECG was normal. ?Exercise stress test was performed. Exercise capacity was below average. Normal blood pressure response. Stress Findings A Shane protocol stress test was performed. Overall, the patient's exercise capacity was below average. The patient experienced no angina during the test. The test was stopped because the patient experienced fatigue and leg fatigue. Blood pressure demonstrated a normal response. Dyspnea at peak exercise which resolved in recovery. ECG 44 year old with atypical chest pain. History of DM, HTN, HLD. Baseline ECG is normal. The ECG shows normal sinus rhythm. Arrhythmias during stress: rare premature ventricular contractions (PVCs) . There is no ST segment changes during stress. There were no arrhythmias during recovery. The result of the stress ECG was negative for ischemia at slightly submaximal workload. Carmine Barton MD CV STRES S PROCEDURES * Hemoglobin A1c (09/20/2023) [facility] Hemoglobin A1C 9.7 % Blood Venous blood specimen / Unknown Historical Provider LAB BLOOD ORDERAB LES * Lipid panel (06/11/2023) [facility] LDL/HDL Ratio 5 Triglycerides 627 mg/dL Cholesterol 155 mg/dL HDL 30 mg/dL Blood Venous blood specimen / Unknown Historical Provider LAB BLOOD ORDERAB LES from Last 3 Months or Most Recently Relevant to Health Maintenance Care Teams Supply Chain Specialist Relationship Specialty Start Date End Date Carmine Barton MD [address] [place] [phone] PCP - General Internal Medicine 08/24/24
--- OUTSIDE RECORDS SUMMARY | 2024-08-25 10:18 | XMS_ITS | Encounter Summary ---
Author Organization [facility] Address [address] [place] [address] Care Team Providers Care Aerial Tram Operator Name Role Phone Carmine Barton MD Primary Care Pr ovider Reason for Visit * Reason Comments Cyst pilonidal * Consultation (Routine) - Authorized Specialty Diagnoses / Procedures Referred By Contsharita t Referred To Contact General Surgery Diagnoses Pilonidal cyst Carmine Barton MD [address] [place] [phone] [facility] General Surgery [address] [address] Referral ID Status Reason Start Date Expiration Date Visits Requested Visits Authorized [id number] Authorized Specialty Services Required 06/24/2025 1 1 Encounter Details Date Type Department Care Team ([facility] st Contact Info) Description 08/24/2024 11:15 AM EST Consult General Surgery - [place] [address] [phone] Nelson Moe MD [address] [address] Pilonidal cyst Social History Tobacco Use Types Packs/Day Years [...] file Not on file Not on file documented as of this encounter Last Filed Vital Signs Vital Sign Reading Time Taken Comments Blood Pressure 131/86 08/24/2024 10:58 AM EST Pulse 84 08/24/2024 10:58 AM EST Temperature - - Respiratory Rate - - Oxygen Saturation - - Inhaled Oxygen Concentration - - Weight 142 kg (313 lb 9.6 oz) 08/24/2024 10:58 A M EST Height 175.3 cm (5' 9 ) 08/24/2024 10:58 AM EST Body Mass Index 46.31 08/24/2024 10:58 AM EST documented in this encounter Progress Notes * Nelson Moe MD - 08/24/2024 11:15 AM EST Reason for visit: Mild pilonidal disease Referring MD:Carmine Barton* Waqas Cotter is a 44 y.o. year old male who comes in for evaluation of mild pilonidal disease. Thepatient had first episode of swelling inflammation at the apex of the midline gluteal cleft region a few months ago for which she sought medical attention in the emergency department and was treated with antibiotics. The symptoms have since resolved. No previous other episodes for symptoms. The patient has a history of diabetes with the most recent hemoglobin A1c as below. Lab Results Component Value Date HGBA1C 9.7 09/20/2023 On exam there is an area of poorly defined induration measuring perhaps 2 cm in greatest dimension located towards the apex of the cleft region towards right paramedian. There is no local sign of infection or fluctuance or drainage. There may be some small pits associated with the process and located in close proximity within 4 to 5 cm perhaps but there is no palpable subcutaneous cord or sinus tract appreciable. The patient is obese and has a BMI of 46 Had a thorough detailed discussion with the patient regarding the nature of pilonidal disease. Thisappears to be a very mild case. There is no current inflammatory sign or fluid collection or drainage. There may be some small pits that connect to a subcutaneous cavity through a sinus. I went over the treatment options which include elective excision in the office under general anesthesia in the outpatient setting but I believe that would be overly aggressive and unnecessary at this time given the current clinical scenario. I outlined technical aspects as well as expected recovery. Risks including wound healing problems, wound infection, wound dehiscence, need for healing by secondary intention. Instead perhaps the patient could simply manage excess here in the vicinity of the midline gluteal cleft towards cephalad and this may keep his condition from flaring up at all. He had several questions which I believe were answered to his satisfaction. He understood and agreed. He will returnas needed or call with interval complaints. Thank you for the kind referral. IMPRESSION: 1. Pilonidal cyst Medication and lab orders: No orders of the defined types were placed in this encounter. Other orders: AMB REFERRAL TO GENERAL SURGERY ROS: GENERAL: No malaise, significant weight loss or fever HEENT: No nose bleeds or scleral icterus NECK: No cervical or supraclavicular lymphadenopathy RESPIRATORY: No cough, wheezing or shortness of breath CARDIOVASCULAR: No chest pain, leg swelling or palpitations GI: No abdominal discomfort, blood in stools or black stools : No dysuria or frequency SKIN: No lesions, rash, jaundice or itching HEMATOLOGY/LYMPHOLOGY No prolonged bleeding, easy bruisability or swollen nodes ENDOCRINE: No cold or heat intolerance NEURO: No persistent headache, syncope, seizures, amaurosis, aphasia, hemiparesis or paralysis PSYCH: No mood disorders PAST MEDICAL HISTORY: Patient Active Problem List Diagnosis Date Noted Hypertriglyceridemia 06/24/2024 Morbid obesity with BMI of 45.0-49.9, adult ([facility]) 09/27/2023 History of hematuria 09/27/2023 Uncontrolled type 2 diabetes mellitus with hyperglycemia, with long-term current use of insulin ([facility]) 09/27/2023 Diabetes mellitus with microalbuminuria ([facility]) 01/31/2023 Constipation 10/26/2022 Gastroparesis 02/15/2022 Learning disability 01/11/2021 NAFLD (nonalcoholic fatty liver disease) 10/19/2020 COVID-19 virus infection 07/24/2020 Allergic contact dermatitis due to cosmetics 06/20/2020 Vitamin D deficiency 11/24/2018 Esophageal dysphagia 11/24/2018 IBS (irritable bowel syndrome) 11/24/2018 Microalbuminuria 11/24/2018 Chronic low back pain 11/24/2018 ADHD (attention deficit hyperactivity disorder) 11/24/2018 Anxiety state 11/24/2018 Depression, major, single episode 11/24/2018 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 Mild luminal irregularities < 30 %. EF = 40 % COLONOSCOPY 06/28/2015 PROCEDURE: HISTORICAL COLONOSCOPY ESOPHAGOGASTRODUODENOSCOPY 06/28/2015 PROCEDURE: AL ESOPHAGOGASTRODUODENOSCOPY TRANSORAL DIAGNOSTIC ESOPHAGOGASTRODUODENOSCOPY 03/28/2017 PROCEDURE: AL ESOPHAGOGASTRODUODENOSCOPY TRANSORAL DIAGNOSTIC; COMMENT: [facility] - normal ESOPHAGOGASTRODUODENOSCOPY 08/04/2019 PROCEDURE: AL ESOPHAGOGASTRODUODENOSCOPY TRANSORAL DIAGNOSTIC; COMMENT: [facility] - Orr deployed at 36 cm. Normal stomach. Duodenitis. ESOPHAGOGASTRODUODENOSCOPY 08/01/2021 PROCEDURE: AL ESOPHAGOGASTRODUODENOSCOPY TRANSORAL DIAGNOSTIC; COMMENT: Dr. Goldberg -bilious gastric fluid noted, otherwise unremarkable. OTHER SURGICAL HISTORY 08/04/2019 PROCEDURE: AL GASTROESOPHAG REFLX TEST W/TELEMTRY PH ELTRD; COMMENT: [facility] - the study is negative for abnormal distal esophageal acid exposure on both days using Demeter score. SOCIAL HISTORY: Social History Tobacco Use Smoking status: Never Smokeless tobacco: Never Substance Use Topics Alcohol use: Not Currently FAMILY HISTORY: Family History Problem Relation Name Age of Onset Obesity Mother Diabetes Father age 50 Hypertension Maternal Grandmother Colon cancer Maternal Grandmother 60s or 70s Eczema Son Other (Other: food allergy) Son Diabetes Mother's side Aunt(s) Malignant Neoplastic Disease Breast cancer Mother's side Aunt(s) Prostate cancer Neg Hx Family Status Relation Name Status Mother (Not Specified) Father MGM Son (Not Specified) Mother's melvin Aunt(s) Alive Neg Hx (Not Specified) No partnership data on file ACTIVE MEDICATIONS: Outpatient Medications Marked as Taking for the 08/24/24 encounter (Consult) with Nelson Moe MD Medication Sig Dispense Refill atorvastatin (LIPITOR) 40 mg tablet Take 1 tablet (40 mg total) by mouth at bedtime. 90 each 1 dicyclomine (BENTYL) 10 mg capsule Take 1 capsule (10 mg total) by mouth. docusate sodium (COLACE) 100 mg capsule Take 1 capsule (100 mg total) by mouth. Farxiga 10 mg tablet Take 1 tablet (10 mg total) by mouth 1 (one) time each day. HumaLOG KwikPen Insulin 100 unit/mL injection pen Inject 100 Units under the skin 3 (three) times aday before meals. insulin glargine U-300 conc (Toujeo Max U-300 SoloStar) 300 unit/mL (3 mL) CONCENTRATED injection pen Inject 60 Units under the skin. losartan (COZAAR) 25 mg tablet Take 1 tablet (25 mg total) by mouth 1 (one) time each day. 90 each 1 metoprolol succinate (TOPROL-XL) 25 mg 24 hr tablet Take 1 tablet (25 mg total) by mouth 1 (one) time each day. 90 each 1 pantoprazole (PROTONIX) 20 mg EC tablet Take 1 tablet (20 mg total) by mouth 2 (two) times a day. 360 each 0 ALLERGIES: Allergies Allergen Reactions Lisinopril Headache Other Positive patch to p-pheylenediamine Pollen Extracts PHYSICAL EXAM: Visit Vitals BP 131/86 Pulse 84 Ht 1.753 m (69 ) Wt 142 kg (313 lb 9.6 oz) BMI 46.31 kg/m?? Smoking Status Never BSA 2.5 m?? APPEARANCE: Alert and in no acute distress EYES: PERRL, EOMI, conjunctiva and sclera normal. NECK: Neck supple, no cervical or supraclavicular adenopathy HEART: RRR LUNG: non-labored respirations, patient is comfortable on room air without adventitious sounds LYMPH NODES: grossly normal ABDOMEN: benign, nondistended, centrally obese with a BMI of 46 EXTREMITIES: Extremities warm and well perfused without clubbing, cyanosis, or edema NEURO: Awake, alert and oriented x 3, moves all extremities SKIN: Skin color, texture, turgor normal, not jaundiced LABS: No results found for: WBC , HGB , HCT , MCV No results found for: NA , K , CO2 , CL , BUN , GLU , ALB , ALKPHOS , TP IMAGING: None IMPRESSION: As above Plan: As above It was a pleasure seeing Waqas Cotter at the [facility] today. The patient has been instructedto call with any additional questions or concerns. Nelson Moe MD cc: Carmine Barton O* documented in this encounter Plan of Treatment Upcoming Encounters Date Type Department Care Team (Late st Contact Info) Description 08/27/2024 10:20 AM EST Office Visit Gastroenterology - [place] 175 [place] [address] [phone] Daniel Hall PA 175 [facility] [address] [place] [address] 09/02/2024 12:30 PM EST Office Visit Adult [facility] [address] [place] [address] Catie Cook PA [address] [place] [address] 09/23/2024 11:30 AM EST Ancillary Procedure [facility] - [facility] [address] [phone] documented as of this encounter Visit Diagnoses Diagnosis Pilonidal cyst documented in this encounter Orders Outpatient Referral Count Last Ordered Date Fir st Ordered Date AMB REFERRAL TO GENERAL SURGERY 1 documented in this encounter Care Teams Aerial Tram Operator Relationship Specialty Start Date End Date Carmine Barton MD [address] [place] [address] PCP - General Internal Medicine 08/24/24 documented as of this encounter
[2024-08-25 17:51] LABS: Hematocrit 47.4 % (42.0-52.0); Hemoglobin 16.1 g/dl (14.0-18.0); Mean Corpuscular Volume 82.4 fL (80.0-98.0); Mean Platelet Volume 10.2 fL (9.4-12.4); Platelet Count 231 X10*3/uL (160-400); Red Blood Count 5.75 X10*6/uL (4.60-5.80); Red Cell Distribution Width 13.3 % (11.0-16.0); White Blood Count 5.8 X10*3/uL (4.8-10.8)
[2024-08-25 18:04] LABS: Estimated Average Glucose 229 mg/dL; Hemoglobin A1c % 9.6 % (<6.0)
[2024-08-25 18:11] LABS: Alanine Aminotransferase 87 U/L (0-40); Albumin Level 3.9 g/dL (3.5-5.0); Alkaline Phosphatase 116 U/L (39-117); Anion Gap 13 (12-20); Aspartate Amino Transferase 39 U/L (5-37); Bilirubin Total 0.6 mg/dL (0.0-1.0); Blood Urea Nitrogen 20 mg/dL (9-16); Calcium 8.7 mg/dL (8.4-10.2); Carbon Dioxide 23 mmol/L (22-29); Chloride 107 mmol/L (96-108); Estimated Glomerular Filt Rate > 60; Glucose Random 196 mg/dL (60-115); Potassium 3.9 mmol/L (3.3-5.1); Sodium 139 mmol/L (135-145); Total Protein 7.9 g/dL (6.5-8.0)
[2024-08-25 18:26] LABS: TSH reflex Free T4 1.25 uIU/mL (0.32-4.0); Vitamin D 25-OH Total 26.5 ng/mL (>30)
[2024-08-25 18:37] LABS: Folate 12.9 ng/mL (> or = 4.0); Vitamin B12 485 pg/mL (200-900)
[2024-08-28 02:28] LABS: Methylmalonic Acid 85 nmol/L (55-335)
== END 2024-08-25 09:25 | disposition home or self-care (01) ==
LOC: HO.HKASLDS 09:24
PROVIDERS: Visit Provider Physician Assistant Medical
DX: Z13.89 Encounter for screening for other disorder (principal)
CPT/HCPCS: 36415; 80053; 82306; 82607; 82746; 83036; 83921; 84443; 85027

== ENCOUNTER 2024-08-25 09:50 | Outpatient (REF) | payer MEDICARE, MEDICAID, SELFPAY ==
--- OUTSIDE RECORDS SUMMARY | 2024-08-25 11:03 | XMS_ITS | Clinical Summary ---
Author Organization [facility] [address] [place] [address] [place] [phone] Phone Care Team Providers Care Post Exchange Manager Name Role Phone Carmine Barton MD Primary [...] PEN 05/08/2023 Active blood-glucose meter,continuous ([employer] G7 Park Services Specialist) misc 1 Device by Not Applicable route. [...] DM and elevated lipids. Liver ultrasound at [facility] on 07/07/2021 felt to be consistent [...] (09/27/2023): Follows with GI (Dr Pickett) at [facility] JAMIE on CPAP 06/06/2018 Encounters Date Type Department Care Team Description 08/24/2024 11:15 AM EST Consult General Surgery - [address] [place] [phone] Nelson Moe MD Pilonidal cyst 07/14/2024 8:00 AM EST Ancillary Procedure [facility] - [address] [employer] [address] [place] [address] Atypical chest pain 06/24/2024 10:00 AM EST Consult Adult Medicine [address] [phone] Carmine Barton MD Preop cardiovascular exam (Primary [...] C screening test 06/24/2024 Telephone Adult Medicine [address] [phone] Carmine Barton MD 06/12/2024 Telephone Adult Medicine [address] [phone] Carmine Barton MD Dental Problem (NEEDS PRE-UP [...] 06/28/2015 PROCEDURE: HISTORICAL COLONOSCOPY ESOPHAGOGASTRODUODENOSCOPY 06/28/2015 PROCEDURE: [place] ESOPHAGOGASTRODUODENOSCOPY TRANSORAL DIAGNOSTIC ESOPHAGOGASTRODUODENOSCOPY 03/28/2017 PROCEDURE: [place] ESOPHAGOGASTRODUODENOSCOPY TRANSORAL DIAGNOSTIC; COMMENT: [facility] - normal ESOPHAGOGASTRODUODENOSCOPY 08/04/2019 PROCEDURE: [place] ESOPHAGOGASTRODUODENOSCOPY TRANSORAL DIAGNOSTIC; COMMENT: [facility] - Orr deployed at 36 cm. Normal stomach. Duodenitis. OTHER SURGICAL HISTORY 08/04/2019 PROCEDURE: [place] GASTROESOPHAG REFLX TEST W/TELEMTRY PH ELTRD; COMMENT: [facility] - the study is negative for abnormal distal esophageal acid exposure on both days using Demeter score. ESOPHAGOGASTRODUODENOSCOPY 08/01/2021 PROCEDURE: [place] ESOPHAGOGASTRODUODENOSCOPY TRANSORAL DIAGNOSTIC; COMMENT: Dr. Goldberg -bilious [...] 10:20 AM EST Office Visit Gastroenterology - [place] 175 [place] 175 [facility] [address] [place] [phone] Daniel Hall PA 175 [facility] [address] [place] [address] 09/02/2024 12:30 PM EST Office Visit Adult Medicine [facility] [address] [place] [phone] Catie Cook PA [address] [place] [address] 09/23/2024 11:30 AM EST Ancillary Procedure [facility] - [facility] 101 300 [facility] [address] [place] [phone] Health Maintenance Due Date Last Done Comments [...] stress test (07/14/2024 8:48 AM EST) Pathologist [facility] Target HR 151 bpm CV STRESS ONLY [...] STRES S PROCEDURES * Hemoglobin A1c (09/20/2023) [facility] Hemoglobin A1C 9.7 % Blood Venous blood specimen / Unknown Historical Provider LAB BLOOD ORDERAB LES * Lipid panel (06/11/2023) [facility] LDL/HDL Ratio 5 Triglycerides 627 mg/dL Cholesterol 155 mg/dL HDL 30 mg/dL Blood Venous blood specimen / Unknown Historical Provider LAB BLOOD ORDERAB LES from Last 3 Months or Most Recently Relevant to Health Maintenance Care Teams Post Exchange Manager Relationship Specialty Start Date End Date Carmine Barton MD [address] [place] [address] PCP - General Internal Medicine 08/24/24
--- OUTSIDE RECORDS SUMMARY | 2024-08-25 11:03 | XMS_ITS | Encounter Summary ---
Author Organization [facility] Address [address] [place] [address] Care Team Providers Care Plastics Engineer Name Role Phone Carmine Barton MD Primary Care Pr ovider Reason for Visit * Reason Comments Cyst pilonidal * Consultation (Routine) - Authorized Specialty Diagnoses / Procedures Referred By Contsharita t Referred To Contact General Surgery Diagnoses Pilonidal cyst Carmine Barton MD [address] [place] [address] [facility] General Surgery [address] [address] Referral ID Status Reason Start Date Expiration Date Visits Requested Visits Authorized [id number] Authorized Specialty Services Required 06/24/2025 1 1 Encounter Details Date Type Department Care Team ([facility] st Contact Info) Description 08/24/2024 11:15 AM EST Consult General Surgery - [place] [address] [phone] Nelson Moe MD [address] [address] Pilonidal cyst Social History Tobacco Use Types [...] Morbid obesity with BMI of 45.0-49.9, adult ([facility]) 09/27/2023 History of hematuria 09/27/2023 Uncontrolled type 2 diabetes mellitus with hyperglycemia, with long-term current use of insulin ([facility]) 09/27/2023 Diabetes mellitus with microalbuminuria ([facility]) 01/31/2023 Constipation 10/26/2022 Gastroparesis 02/15/2022 [...] cm. Normal stomach. Duodenitis. ESOPHAGOGASTRODUODENOSCOPY 08/01/2021 PROCEDURE: ME ESOPHAGOGASTRODUODENOSCOPY TRANSORAL DIAGNOSTIC; COMMENT: Dr. Goldberg -bilious gastric fluid noted, otherwise unremarkable. OTHER SURGICAL HISTORY 08/04/2019 PROCEDURE: ME GASTROESOPHAG [...] 10:20 AM EST Office Visit Gastroenterology - [place] 175 [place] [address] [phone] Daniel Hall PA 175 [facility] 200 [place] [address] 09/02/2024 12:30 PM EST Office Visit Adult [facility] [address] [place] [address] Catie Cook PA [address] [place] [address] 09/23/2024 11:30 AM EST Ancillary Procedure [facility] - [facility] [address] [phone] documented as of this encounter Visit Diagnoses Diagnosis Pilonidal cyst documented in this encounter Orders Outpatient Referral Count Last Ordered Date Fir st Ordered Date AMB REFERRAL TO GENERAL SURGERY 1 documented in this encounter Care Teams Plastics Engineer Relationship Specialty Start Date End Date Carmine Barton MD [address] [place] [address] PCP - General Internal Medicine 08/24/24 documented as of this encounter
== END 2024-08-25 09:51 | disposition home or self-care (01) ==
LOC: HO.LAB 09:50
PROVIDERS: Visit Provider Physician Assistant Medical
DX: M54.2 Cervicalgia (principal); G47.33 Obstructive sleep apnea (adult) (pediatric); R51.9 Headache, unspecified; R53.83 Other fatigue; G47.9 Sleep disorder, unspecified; Z13.1 Encounter for screening for diabetes mellitus
CPT/HCPCS: 36415; 80053; 82306; 82607; 82746; 83036; 83090; 83921; 84443; 85027

== ENCOUNTER 2024-11-20 11:23 | Outpatient (AMB) | payer MEDICARE, MEDICAID, SELFPAY ==
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
[2024-11-20 11:31] VITALS: BP 110/70; BMI 46.8
--- OUTSIDE RECORDS SUMMARY | 2024-11-20 12:29 | XMS_ITS | Encounter Summary ---
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 Phone Carmine Barton MD Primary Care Pr ovid Reason for Referral * Consultation (Routine) - Authorized Specialty Diagnoses / Procedures Referred By Contac t Referred To Contact Orthopaedics / Orthopaedic Surgery Diagnoses Left shoulder pain, unspecified chronicity Catie Cook PA [address] [place] [address] Phone: tel: fax: Taylor Benavides NP [address] [address] Phone: tel:[phone] fax:[phone] Referral ID Status Reason Start Date Expiration Date Visits Requested Visits Authorized [id number] Authorized Specialty Services Required 11/19/2024 11/19/2025 1 1 * Consultation (Routine) - Authorized Specialty Diagnoses / Procedures Referred By Contac t Referred To Contact Physical Therapy Diagnoses Acute pain of right shoulder Catie Cook PA [address] [place] [address] Phone: tel: fax: Referral ID Status Reason Start Date Expiration Date Visits Requested Visits Authorized [id number] Authorized Specialty Services Required 11/19/2024 11/19/2025 1 1 Reason for Visit * Reason Comments ER FOLLOW UP [facility] 11/03/2024 Encounter Details Date Type Department Care Team (Late st Contact Info) Description 11/19/2024 11:30 AM EDT Office Visit Adult Medicine [address] [phone] Catie Cook PA [address] [place] [address] Acute pain of right shoulder (Primary Dx); Left shoulder pain, unspecified chronicity; Abscess of gluteal cleft; Pilonidal abscess; Uncontrolled type 2 diabetes mellitus with hyperglycemia, with long-term current use of insulin ([facility] V24, [facility] V28) Social History Tobacco Use Types Packs/Day Years Used Date Smoking Tobacco: Never Smokeless Tobacco: Never Alcohol Use Standard Drinks/Week Comments Not Currently 0 (1 standard drink = 0.6 oz pur e alcohol) Sex and Gender Information Value Date Recorded Sex Assigned at Male 09/24/2024 12:20 PM EST Legal Sex Male 5:46 AM EST Gender Identity Male 09/24/2024 12:20 PM EST Sexual Orientation Straight 09/24/2024 12 :20 PM EST documented as of this encounter Last Filed Vital Signs Vital Sign Reading Time Taken Comments Blood Pressure 104/77 11/19/2024 11:43 AM EDT Pulse 96 11/19/2024 11:43 AM EDT Temperature 36.7 ??C (98 ??F) 11/19/2024 11:43 AM EDT Respiratory Rate 14 11/19/2024 11:43 AM EDT Oxygen Saturation 98% 11/19/2024 11:43 AM EDT Inhaled Oxygen Concentration - - Weight 144 kg (317 lb) 11/19/2024 11:43 AM EDT Height 175.3 cm (5' 9 ) 11/19/2024 11:43 AM EDT Body Mass Index 46.81 11/19/2024 11:43 AM EDT documented in this encounter Progress Notes * PHILL Dinh - 11/19/2024 11:30 AM EDT Call [facility] physical therapy about your right shoulder (I placed a referral today) * PHILL Dinh - 11/19/2024 11:30 AM EDT CHIEF COMPLAINT: ER FOLLOW UP ([facility] 11/03/2024) IDENTIFIER: Waqas Cotter is a 44 y.o. old male. HPI: 44 year old male presents to office for ER follow-up Seen at [facility] ER on 11/03/24, presented following a fall down stairs, fell onto bilateral elbows and buttock, reported pain and decreased ROM right shoulder, was walking without difficulty. Abrasions to R forearm. Denied CP, SOB, abdominal pain or back pain. No head injury or LOC reported. While in ER, x-ray right shoulder obtained and normal. He was discharged home Today. Before entering room, patient mentioned to MA he was not feeling well. His vitals were stable. His blood sugar was 133 in office He states he is having some reflux symptoms, admitted to eating pizza last night. He states he is not feeling well. He denies any fever, chest pain, shortness of breath He states that he has a lump to his tailbone that makes it painful to sit down He states he did have something to eat and drink today He states he recently completed PT for his L shoulder. He states PT recommended he see specialist for his left shoulder due to persistent symptoms despite PT He states he recently had his last day of PT and then the following day he fell injuring his right shoulder He states he is able to lift/use arm but lifting causes pain Type 2 diabetes - last A1c 9.5% in August, recent visit with Endocrine end of October, novolog switched to sliding scale, Toujeo increased to 84 units BID, continued on Farxiga and switched to Mounjaro ROS: GENERAL: No malaise or fever HEENT: No changes in hearing or vision RESPIRATORY: No cough, wheezing or shortness of breath CARDIOVASCULAR: No chest pain, leg swelling or palpitations GI: No abdominal pain, diarrhea, constipation, blood in stool : No dysuria, frequency, incontinence, hematuria MUSCULOSKELETAL: SEE HPI NEURO: No persistent headache, syncope, numbness All other systems reviewed and negative. PAST MEDICAL HISTORY: Patient Active Problem List Diagnosis Date Noted Hypertriglyceridemia 06/24/2024 Morbid obesity with BMI of 45.0-49.9, adult ([facility] V24, [facility] V28) 09/27/2023 History of hematuria 09/27/2023 Uncontrolled type 2 diabetes mellitus with hyperglycemia, with long-term current use of insulin ([facility] V24, [facility] V28) 09/27/2023 Diabetes mellitus with microalbuminuria ([facility] V24, [facility] V28) 01/31/2023 Constipation 10/26/2022 Gastroparesis 02/15/2022 Learning disability [...] without esophagitis 06/06/2018 JAMIE on CPAP 06/06/2018 ACTIVE MEDICATIONS: Current Outpatient Medications Medication Instructions albuterol HFA (Ventolin HFA) 90 mcg/actuation inhaler 2 puffs, inhalation, Every 6 hours PRN aluminum-magnesium hydroxide-simethicone (MAALOX MAX) 400-400-40 mg/5 mL suspension Take by mouth. atorvastatin (LIPITOR) 40 mg, oral, Nightly Basaglar KwikPen U-100 Insulin 84 Units, subcutaneous, 2 times daily blood sugar diagnostic (FreeStyle Lite Strips) test strip USE TO TEST DIRECTED EVERY DAY blood-glucose meter,continuous (Dexcom G7 Configuration Analyst) misc 1 Device blood-glucose sensor (Dexcom G7 Sensor) device 1 Device clotrimazole (LOTRIMIN) 1 % cream APPLY TOPICALLY TO THE AFFECTED AREA TWICE DAILY FOR 14 DAYS dicyclomine (BENTYL) 10 mg docusate sodium (COLACE) 100 mg Farxiga 10 mg, oral, Daily fluticasone propion-salmeteroL (AIRDUO RESPICLICK) 55-14 mcg/actuation aerosol [facility] breath activated inhaler 1 puff, inhalation, 2 times daily, Rinse mouth with water after use to reduce aftertaste and incidence of candidiasis. Do not swallow. FREESTYLE LANCETS MISC Daily insulin aspart (NovoLOG FlexPen) 100 unit/mL (3 mL) injection pen Inject 3 times a day with meals per sliding scale: 100-149: 20 units; 150-200: 22 units; 201- 250: 24 units; 251-300: 26 units; 301-350: 28 units; 350-400: 30 units insulin glargine U-300 (Toujeo SoloStar U-300 Insulin) 300 unit/mL (1.5 mL) CONCENTRATED injection pen 84 units SC BID insulin syringe-needle U-100 0.3 mL 31 gauge x 5/16 syringe USE 1 NEEDLE EVERY EVENING WITH INSULIN PEN losartan (COZAAR) 25 mg, oral, Daily metoprolol succinate (TOPROL-XL) 25 mg, oral, Daily Mounjaro 2.5 mg, subcutaneous, Every 7 days pantoprazole (PROTONIX) 20 mg, oral, 2 times daily polyethylene glycol (MIRALAX) 17 g, oral, 2 times daily PRN psyllium (Daily Fiber, psyllium-aspart,) 3.4 gram packet 1 packet senna-docusate (PERICOLACE) 8.6-50 mg per tablet 1 tablet, oral, Daily UNABLE TO FIND Inhale. ALLERGIES: Allergies Allergen Reactions Lisinopril Headache Pollen Extracts PHYSICAL EXAM: Blood pressure 104/77, pulse 96, temperature 36.7 ??C (98 ??F), temperature source Temporal, resp. rate 14, height 1.753 m (69 ), weight 144 kg (317 lb), SpO2 98%. Body mass index is 46.81 kg/m??. APPEARANCE: Alert and in no acute distress EYES: Conjunctiva and sclera normal. HEART: RRR with normal S1 and S2 LUNG: clear to auscultation, no wheezing, rales, or rhonchi EXTREMITIES: Extremities warm and well perfused without clubbing, cyanosis, or edema. Active ROM R shoulder limited due to pain, though able to perform active flexion and extension SKIN: Pilonidal cyst with surrounding erythema and warmth. Open left gluteal abscess with drainage NEURO: Awake, alert and oriented x 3 LABS/IMAGING: Lab Results Component Value Date HGBA1C 9.5 (H) 09/04/2024 IMPRESSION: 1. Acute pain of right shoulder 2. Left shoulder pain, unspecified chronicity 3. Abscess of gluteal cleft 4. Pilonidal abscess 5. Uncontrolled type 2 diabetes mellitus with hyperglycemia, with long-term current use of insulin ([facility] V24, [facility] V28) PLAN: Right shoulder pain - will refer to PT Left shoulder pain - will refer to Orthopedics for consult Patient noted to have pilonidal abscess and gluteal abscess. This may explain why he is not feelingwell. His vitals are stable, he is afebrile in office. Recommended he go to ER today for I&D/further evaluation. He is agreeable. Expect call placed to [facility] ER 12:11 Patient verbalized understanding and is in agreement with plan ADDITIONAL ORDERS: Orders Placed This Encounter Procedures Ambulatory referral to Physical Therapy and Athletic Training Ambulatory referral to Orthopedic AMB REFERRAL TO PHYSICAL THERAPY AND ATHLETIC TRAINING AMB REFERRAL TO ORTHOPEDIC PHILL Dinh on 11/19/2024 at 2:35 PM EDT Today's documentation was made using voice recognition software.This note may contain grammatical errors secondary to this software. documented in this encounter Plan of Treatment Upcoming Encounters Date Type Department Care Team (Late st Contact Info) Description 12/08/2024 8:15 AM EDT Appointment [facility]trasound [facility] [address] [place] [address] 12/17/2024 11:10 AM EDT Office Visit Gastroenterology - [place] [address] [place] [id number] Evelyne Goldsmith PA [address] [place] [address] 01/01/2025 9:45 AM EDT Office Visit Adult Medicine [address] [phone] Carmine Barton MD [address] [place] [address] 02/10/2025 11:15 AM EDT Office Visit [address] [phone] Kavitha Giron PA [address] [facility] [place] [address] Scheduled Referrals Name Type Priority Associated Diagnoses Order Schedule Ambulatory referral to Physical Therapy and Athletic Training Outpatient Referral Routine Acute pain of right shoulder 1 Occurrences starting 11/19/2024 until 11/19/2025 Ambulatory referral to Orthopedic Outpatient Referral Routine Left shoulder pain, unspecified chronicity 1 Occurrences starting 11/19/2024 until 11/19/2025 documented as of this encounter Visit Diagnoses Diagnosis Acute pain of right shoulder- Primary Left shoulder pain, unspecified chronicity Abscess of gluteal cleft Pilonidal abscess Pilonidal cyst with abscess Uncontrolled type 2 diabetes mellitus with hyperglycemia, with long-term current use of insulin (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
--- OUTSIDE RECORDS SUMMARY | 2024-11-20 12:30 | XMS_ITS | Clinical Summary ---
Author Organization [facility] [address] [place] [address] [place] [phone] Phone Care Team Providers Care Business Objects Architect Name Role Phone Carmine Barton MD Primary Care Pr ovider Allergies Active Allergy Reactions Criticality Noted Date Comments Lisinopril Headache 01/13/2020 Pollen Extracts 09/14/2019 Medications aluminum-magnesium hydroxide-simethico ne (MAALOX MAX) 400-400-40 mg/5 mL suspension Take by mouth. Active insulin syringe-needle U-100 0.3 mL 31 gauge x 5/16 syringe USE 1 NEEDLE EVERY EVENING WITH INSULIN PEN 023 Active blood-glucose meter,continuous (Dexcom G7 Thread Spinner) misc 1 Device by Not Applicable route. 024 Active blood-glucose sensor (Dexcom G7 Sensor) device 1 Device by Not Applicable route. 024 Active UNABLE TO FIND Inhale. Activ e dicyclomine (BENTYL) 10 mg capsule Take 1 capsule (10 mg total) by mouth. 023 Active docusate sodium (COLACE) 100 mg capsule Take 1 capsule (100 mg total) by mouth. 023 Active FREESTYLE LANCETS MISC 1 (one) time each day. 023 Active blood sugar diagnostic (FreeStyle Lite Strips) test strip USE TO TEST DIRECTED EVERY DAY 023 Active psyllium (Daily Fiber, psyllium-aspart,) 3.4 gram packet Take 1 packet by mouth. 023 Active losartan (COZAAR) 25 mg tablet Take 1 tablet (25 mg total) by mouth 1 (one) time each day. 90 each 1 2024 Active metoprolol succinate (TOPROL-XL) 25 mg 24 hr tablet Take 1 tablet (25 mg total) by mouth 1 (one) time each day. 90 each 1 2024 Active atorvastatin (LIPITOR) 40 mg tablet Take 1 tablet (40 mg total) by mouth at bedtime. 90 each 1 2024 Active pantoprazole (PROTONIX) 20 mg EC tabletIndications:G astroesophageal reflux disease without esophagitis Take 1 tablet (20 mg total) by mouth 2 (two) times a day. 360 each 2024 Active albuterol HFA (Ventolin HFA) 90 mcg/actuation inhalerIndications: Mild persistent asthma without complication Inhale 2 puffs by mouth every 6 (six) hours if needed for wheezing. 12 g 1 Active fluticasone propion-salmeteroL (AIRDUO RESPICLICK) 55-14 mcg/actuation aerosol powdr breath activated inhalerIndications: Mild persistent asthma without complication Inhale 1 puff by mouth 2 (two) times a day. Rinse mouth with water after use to reduce aftertaste and incidence of candidiasis. Do not swallow. 1 each 12 2024 Active polyethylene glycol (MIRALAX) 17 gram packet Take 17 g by mouth 2 (two) times a day if needed for constipation. 510 g 2025 Active senna-docusate (PERICOLACE) 8.6-50 mg per tablet Take 1 tablet by mouth 1 (one) time each day. 30 each 2025 Active Farxiga 10 mg tablet TAKE 1 TABLET BY MOUTH DAILY 90 tablet 3 Active insulin aspart (NovoLOG FlexPen) 100 unit/mL (3 mL) injection pen Inject 3 times a day with meals per sliding scale: 100-149: 20 units; 150-200: 22 units; 201-250: 24 units; 251-300: 26 units; 301-350: 28 units; 350-400: 30 units 45 mL 11 Active insulin glargine U-300 (Toujeo SoloStar U-300 Insulin) 300 unit/mL (1.5 mL) CONCENTRATED injection pen 84 units SC BID 45 mL 11 Active tirzepatide (Mounjaro) 2.5 mg/0.5 mL injectionIndication s:Diabetes mellitus with microalbuminuria (CMS/[facility] V24, CMS/HCC V28) Inject 0.5 mL (2.5 mg total) under the skin every 7 (seven) days. 2 mL Active insulin glargine,hum.rec.an log (Basaglar KwikPen U-100 Insulin) 100 unit/mL (3 mL) injection pen Inject 84 Units under the skin 2 (two) times a day. 45 mL 2025 Active clotrimazole (LOTRIMIN) 1 % cream APPLY TOPICALLY TO THE AFFECTED AREA TWICE DAILY FOR 14 DAYS 30 g 2 025 Active insulin glargine U-300 conc (Toujeo Max U-300 SoloStar) 300 unit/mL (3 mL) CONCENTRATED injection pen Inject 60 Units under the skin. 024 2024 Discontinued polyethylene glycol (MIRALAX) 17 gram packet MIX 17 GRAMS IN WATER OR JUICE DIRECTED AND TAKE DAILY 024 2024 Discontinued(D uplicate order) HumaLOG KwikPen Insulin 100 unit/mL injection pen Inject 100 Units under the skin 3 (three) times a day before meals. 2024 Discontinued(F ormulary change) clotrimazole (LOTRIMIN) 1 % cream Apply topically 2 (two) times a day for 14 days. 30 g 2 025 2024 Discontinued insulin aspart (NovoLOG FlexPen) 100 unit/mL (3 mL) injection pen Inject 3 times a day with meals per sliding scale: 100-149: 8 units; 150-200: 10 units; 201-250: 12 units; 251-300: 14 units; 301-350: 16 units; 350-400: 18 units 45 mL 11 025 2024 Discontinued(F ormulary change) insulin glargine U-300 (Toujeo SoloStar U-300 Insulin) 300 unit/mL (1.5 mL) CONCENTRATED injection pen 76 units SC BID 45 mL 11 025 2024 Discontinued(R eorder) ketoconazole (NIZORAL) 2 % cream Apply topically 2 (two) times a day. 60 g 025 2024 Discontinued(D uplicate order) Active Problems Problem Noted Date Diagnosed Date Hypertriglyceridemia 06/24/2024 Morbid obesity with BMI of 4 5.0-49.9, adult ([facility] V24, [facility] V28) 09/27/2023 History of hematuria 09/27/2023 Overview (09/27/2023): Urology referral 07/24/16 Uncontrolled type 2 diabetes mellitus with hyperglycemia, with long-term current use of insulin ([facility] V24, [facility] V28) 09/27/2023 Diabetes mellitus with micro albuminuria ([facility] V24, [facility] V28) 01/31/2023 Constipation 10/26/2022 Gastroparesis 02/15/2022 Learning disability 01/11/2021 NAFLD (nonalcoholic fatty liver disease) 021 Overview (09/27/2023): Non-alcohol. Most likely secondary to obesity, DM and elevated lipids. Liver ultrasound at [facility] on 07/07/2021 felt to be consistent [...] (09/27/2023): Follows with GI (Dr Pickett) at [facility] JAMIE on CPAP 06/06/2018 Encounters Date Type Department Care Team Description 11/19/2024 11:30 AM EDT Office Visit Adult Medicine [address] [phone] Catie Cook PA Acute pain of right shoulder (Primary Dx); Left shoulder pain, unspecified chronicity; Abscess of gluteal cleft; Pilonidal abscess; Uncontrolled type 2 diabetes mellitus with hyperglycemia, with long-term current use of insulin ([facility] V24, [facility] V28) 11/16/2024 Telephone Adult Medicine [address] [phone] Carmine Barton MD Shoulder Pain 11/09/2024 Telephone Adult Medicine [address] [phone] Catie Cook PA Medication Problem (clotrimazole (LOTRIMIN) 1 % cream) 10/30/2024 9:30 AM EDT Office Visit [address] [phone] Kavitha Giron PA Diabetes mellitus with microalbuminuria ([facility] V24, [facility] V28) (Primary Dx); Primary hypertension; Microalbuminuria; Morbid obesity with BMI of 45.0-49.9, adult ([facility] V24, [facility] V28) 10/12/[address] [phone] Kavitha Giron PA PRIOR AUTHORIZATION 09/28/2024 Telephone [facility] - [facility] [address] [facility] [address] [place] [address] Carmine Barton MD 09/23/2024 11:30 AM EST Ancillary Procedure [facility] [address] [place] [address] Atypical chest pain 09/22/2024 9:40 AM EST Office Visit Gastroenterology - [place] [address] [place] [address] Daniel Hall PA Constipation, unspecified constipation type (Primary Dx); Diabetes 1.5, managed as type 2 ([facility] V24, [facility] V28); Fatty liver 09/02/2024 1:11 PM EST - 09/02/2024 11:59 PM EST Hospital Encounter [facility] [address] [place] [phone] Left shoulder pain, unspecified chronicity Discharge Disposition: Home or Self Care 09/02/2024 12:30 PM EST Office Visit Adult Medicine [facility] [address] [place] [address] Catie Cook PA Annual physical exam (Primary Dx); Uncontrolled type 2 diabetes mellitus with hyperglycemia, with long-term current use of insulin ([facility] V24, [facility] V28); Mixed hyperlipidemia; Primary hypertension; Irritable bowel syndrome with constipation; Moderate persistent asthma without complication; Gastroesophageal reflux disease without esophagitis; Left shoulder pain, unspecified chronicity; Generalized pain; Screen for STD (sexually transmitted disease) 08/24/2024 11:15 AM EST Consult General Surgery - [place] [address] [place] [address] Nelson Moe MD Pilonidal cyst from Last 3 Months Immunizations Name Administration [...] 06/28/2015 PROCEDURE: HISTORICAL COLONOSCOPY ESOPHAGOGASTRODUODENOSCOPY 06/28/2015 PROCEDURE: CA ESOPHAGOGASTRODUODENOSCOPY TRANSORAL DIAGNOSTIC ESOPHAGOGASTRODUODENOSCOPY 03/28/2017 PROCEDURE: CA ESOPHAGOGASTRODUODENOSCOPY TRANSORAL DIAGNOSTIC; COMMENT: [facility] - normal ESOPHAGOGASTRODUODENOSCOPY 08/04/2019 PROCEDURE: CA ESOPHAGOGASTRODUODENOSCOPY TRANSORAL DIAGNOSTIC; COMMENT: [facility] - Orr deployed at 36 cm. Normal stomach. Duodenitis. OTHER SURGICAL HISTORY 08/04/2019 PROCEDURE: CA GASTROESOPHAG REFLX TEST W/TELEMTRY PH ELTRD; COMMENT: [facility] - the study is negative for abnormal distal esophageal acid exposure on both days using Demeter score. ESOPHAGOGASTRODUODENOSCOPY 08/01/2021 PROCEDURE: CA ESOPHAGOGASTRODUODENOSCOPY TRANSORAL DIAGNOSTIC; COMMENT: Dr. 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 Most likely secondary to obesity, DM and elevated lipids. Obesity DX:Obesity Obesity DX:Obesity Constipation DX:Constipation Diabetes 1.5, managed as typ e 2 (CMS/HCC V24, [facility] V28) DX:Diabetes 1.5, managed as type 2 (HCC) [...] Orientation Straight 09/24/2024 12 :20 PM EST Obstetrics History Last Filed Vital Signs Vital [...] Mass Index 46.81 11/19/2024 11:43 AM EDT Plan of Treatment Upcoming Encounters Date Type Department Care Team (Late st Contact Info) Description 12/08/2024 8:15 AM EDT Appointment Ultrasound - [place] [address] [place] [address] 12/17/2024 11:10 AM EDT Office Visit Gastroenterology - [place] [address] [place] [phone] Evelyne Goldsmith PA [address] [place] [address] 01/01/2025 9:45 AM EDT Office Visit Adult Medicine [address] [phone] Carmine Barton MD [address] [place] [address] 02/10/2025 11:15 AM EDT Office Visit Endocrinology [address] [phone] Kavitha Giron PA [address] [place] [address] Health Maintenance Due Date Last Done Comments Hepatitis A Vaccines (1 of 2 - Risk 2-dose series) 2001 Hepatitis B Vaccines (1 of 3 - 19+ 3-dose series) 2001 Pneumococcal Vaccine: Pediatrics (0 to 5 Years) and At-Risk Patients (6 to 64 Years) (2 of 2 - PCV) 09/02/2015 09/02/2014 Medicare Annual Wellness Visit 07/14/2022 Diabetes: Annual Foot Exam 12/21/2023 12/20/2022 COVID-19 Vaccine ( season) 2024 12/30/2020, 12/09/2020 Diabetes: Annual Retina Eye Exam 07/10/2024 07/10/2023 Diabetes: Blood Sugar Control Test (HGBA1C) 03/04/2025 09/04/2024, 05/05/2024, 01/15/2024, Additional history exists Depression Screening 09/02/2025 09/02/2024, 02/01/20 23 Social Influencers of Health Screening 09/02/2025 09/02/2024 Diabetes: Annual Urine Albumin-Creatinine Ratio (uACR) 09/04/2025 09/04/2024, 01/30/2023 Diabetes: Annual GFR (Glomerular Filtration Rate) 09/04/2025 09/04/2024, 01/15/2024 Hypertension/CHF/CAD Annual BMP Blood Test 09/04/2025 09/04/2024, 01/15/2024 Cholesterol Screening (Lipid Panel) 09/04/2029 09/04/2024, 01/15/2024, 01/15/2024, Additional history exists DTaP,Tdap,and Td Vaccines (4 - Td or Tdap) 06/24/2034 06/24/2024, 02/12/2013, 09/06/2004 Influenza Vaccine Completed 06/24/2024, , 04/11/2022, Additional history exists HIV Screening Completed 09/04/2024 Hepatitis C Screening Completed 09/04/2024 HIB Vaccines Aged Out No longer eligi [...] patient's age to complete this topic Meningococcal B Vaccine Aged Out No l onger eligible based on patient's age to complete this topic RSV Immunization Patients Under 20 months Aged Out No longer eligible based on patient's age to complete this topic Varicella Vaccines Aged Out No longer eligible based on patient's age to complete this topic Procedures Procedure Name Priority Date/Time Associated Diagnosis Comments POC GLUCOSE Routine 10/30/2024 9:48 AM EDT Diabetes mellitus with microalbuminuria ([facility] V24, [facility] V28) TRANSTHORACIC ECHOCARDIOGRAM (TTE) COMPLETE W/ CONTRAST Routine 09/23/2024 12:15 PM EST Atypical chest pain COMPLETE BLOOD COUNT Routine 09/04/2024 7:40 AM EST Annual physical exam Uncontrolled type 2 diabetes mellitus with hyperglycemia, with long-term current use of insulin ([facility] V24, [facility] V28) Mixed hyperlipidemia Primary hypertension COMPREHENSIVE METABOLIC PANEL Routine 09/04/2024 7:40 AM EST Annual physical exam HEMOGLOBIN A1C Routine 09/04/2024 7:40 AM EST Annual physical exam Uncontrolled type 2 diabetes mellitus with hyperglycemia, with long-term current use of insulin ([facility] V24, [facility] V28) LIPID PANEL WITH REFLEX TO DIRECT LDL Routine 09/04/2024 7:40 AM EST Annual physical exam MICROALBUMIN CREATININE URINE RATIO Routine 09/04/2024 7:40 AM EST Annual physical exam VITAMIN B12 Routine 09/04/2024 7:40 AM EST Annual physical exam NATY IFA WITH TITER AND PATTERN Routine 09/04/2024 7:40 AM EST Generalized pain BORRELIA BURGDORFERI ANTIBODY Routine 09/04/2024 7:40 AM EST Generalized pain URIC ACID Routine 09/04/2024 7:40 AM EST Generalized pain RHEUMATOID FACTOR Routine 09/04/2024 7:4 0 AM EST Generalized pain TREPONEMA PALLIDUM ANTIBODY WITH REFLEX TO RPR AND PARTICLE AGGLUTINATION Routine 09/04/2024 7:40 AM EST Screen for STD (sexually transmitted disease) HIV 1, 2 ANTIBODY, P24 ANTIGEN WITH REFLEX TO DIFFERENTIATION Routine 09/04/2024 7:40 AM EST Screen for STD (sexually transmitted disease) HEPATITIS C ANTIBODY Routine 09/04/2024 7:40 AM EST Screen for STD (sexually transmitted disease) CHLAMYDIA TRACHOMATIS AND NEISSERIA GONORRHOEAE PCR Routine 09/04/2024 7:40 AM EST Screen for STD (sexually transmitted disease) XR SHOULDER 2+ VIEWS LEFT Routine 09/02/2024 1:24 PM EST Left shoulder pain, unspecified chronicity from Last 3 Months Results * POC glucose manually resulted (10/30/2024 9:48 AM EDT) Glucose POC 229 mg/dL Comment:Non fasting Blood Capillary blood specimen / Unknown 10/30/2024 9:48 AM EDT us Kavitha POLLOCK POINT OF CARE TEST ENTER/ED IT ORDERABLES Final Result * (ABNORMAL) TRANSTHORACIC ECHOCARDIOGRAM (TTE) COMPLETE W/ CONTRAST (09/23/2024 12:15 PM EST) LV EDV (A2C) 70 mL CV PACS LV EDV (A4C) 117 mL CV PACS LV Diastolic Volume (BP) 92 62 - 150 mL CV PACS LV ESV (A2C) 31 mL CV PACS LV ESV (A4C) 46 mL CV PACS LV Systolic Volume (BP) 38 21 - 61 mL CV PACS IVSD 1.4(A) 0.6 - 1.0 cm CV PACS LVIDD 5.5 4.2 - 5.8 cm CV PACS LVIDS 3.7 2.5 - 4.0 cm CV PACS LVOT Diameter 2.2 cm CV PACS LVOT Mean Pedro 0.7 m/s CV PACS LVOT Mean Grad 3 mmHg CV PACS LVOT Peak VTI 23.5 cm CV PACS LVOT Peak Pedro 1.2 m/s CV PACS LVOT Peak Gradient 6 mmHg CV PACS LVPWD 1.4(A) 0.6 - 1.0 cm CV PACS MV E' Tissue Velocity Lateral 9 cm/s CV PACS MV E' Tissue Velocity Septal 6 cm/s CV PACS Ejection Fraction (A2C) 56 % CV PACS Ejection Fraction (A4C) 61 % CV PACS Ejection Fraction (BP) 59 % CV PACS LVOT Area 3.8 cm2 CV PACS LVOT Stroke Volume 89 mL CV PACS Left Atrium Minor [place] 5.7 cm CV PACS Left Atrium Major [place] 5.2 cm CV PACS LA Area Sys (A2C) 18 cm2 CV PACS LA Area Sys (A4C) 15 cm2 CV PACS LA Volume (BP) 41 mL CV PACS AV Mean Gradient 3 mmHg CV PACS AV Mean Gradient 3 mmHg CV PACS Ao VTI 22.3 cm CV PACS AV Peak Pedro 1.2 m/s CV PACS AV Peak Gradient 6 mmHg CV PACS AV Area Continuity Equation 4.0 cm2 CV PACS AV Area Peak Velocity 3.8 cm2 CV PACS Aortic Arch 3.1 cm CV PACS Ascending Aorta 4.0 cm CV PACS Aortic Sinus Valsalva 4.0 cm CV PACS IVC Proximal 1.6 cm CV PACS MV Deceleration [place] 4.0 m/s2 CV PACS E Wave Deceleration Time 210 119 - 242 ms CV PACS MV PHT 62 ms CV PACS MV Peak A Pedro 0.85 m/s CV PACS MV Peak E Pedro 0.87 m/s CV PACS MV Mean Gradient 2 mmHg CV PACS MV VTI 29.8 cm CV PACS Mitral Valve Max Velocity 1.0 m/s CV PACS MV Peak Gradient 4 mmHg CV PACS MV Area PHT 3.6 cm2 CV PACS MV Area Continuity Equation 3.0 cm2 CV PACS PV Acceleration Time 155 ms CV PACS PV Mean Gradient 2 mmHg CV PACS PV VTI 16.9 cm CV PACS PV Peak Velocity 1.1 m/s CV PACS PV Peak Gradient 5 mmHg CV PACS RV S' 9 cm/s CV PACS TAPSE 29 mm CV PACS E/E' Ratio Septal 15 CV PACS E/E' Ratio Averaged 12 CV PACS Relative Wall Thickness ratio 0.51 CV PACS LVOT:AV VTI Index 1.05 CV PACS FS 33 % CV PACS LV Mass 2D 338 g CV PACS MV VTI:LVOT VTI ratio 1.3 CV PACS LVOT flow 266 mL/s CV PACS AV Velocity Ratio 1.00 CV PACS E/A Ratio 1.0 CV PACS E/E' Ratio Lateral 10 CV PACS BSA 2.67 m2 CV PACS LV Diastolic Volume Index (BP) 36 34 - 74 mL/m2 CV PACS LV Systolic Volume Index (BP) 15 11 - 31 mL/m2 CV PACS LV EDV Index (A4C) 46 mL/m2 CV PACS LV ESV Index (A4C) 18 mL/m2 CV PACS LV EDV Index (A2C) 28 mL/m2 CV PACS LV ESV Index (A2C) 12 mL/m2 CV PACS LA Volume Index (BP) 16 mL/m2 CV PACS LVIDD Index 2.17 cm/m2 CV PACS LVIDS Index 1.46 cm/m2 CV PACS LV Mass Index 2D 134(A) 50 - 102 g/m2 CV PACS LVOT Stroke Index 35 mL/m2 CV PACS FRANKLIN Index (VTI) 1.58 cm2/m2 CV PACS FRANKLIN Index (Pk Pedro) 1.50 cm2/m2 CV PACS Ascending Aorta Index 1.58 cm/m2 CV PACS Anatomical Region Laterality Modality Ultrasound Narrative 09/25/2024 4:45 PM EST ?This was a technically poor study in spite of contrast. ??My impression is that there is mild left ventricular hypokinesis with better contraction of the anterolateral wall but I hesitate to estimate an ejection fraction. ?Limited views of the right ventricle suggest perhaps mild hypokinesis there. ?No obvious valvular abnormalities are seen on limited views. ?No prior echo for comparison. Left Ventricle Image quality was quite poor even with contrast. Left ventricle cavity size is normal. There is moderate concentric hypertrophy. Unable to assess diastolic function. There appears to be mild global hypokinesis. Better contraction of the anterolateral wall on the contrast images. Ejection fraction is at least mildly impaired. I cannot give a numerical EF. Right Ventricle Right ventricle was not well visualized. My impression on the contrast images is that there is at least mild RV hypokinesis. But it is difficult to be certain . Difficult to assess Left Atrium Left atrium cavity size is normal. Right Atrium Right atrium was not well visualized. IVC/SVC Inferior vena cava structure is normal. RA pressures is estimated to be 3 mmHg (IVC diameter <21 mm and decreases >50% during inspiration). Mitral Valve The leaflets are mildly thickened. There is mild annular calcification. Unable to assess mitral valve regurgitation due to poor Doppler exam. There is no evidence of mitral valve stenosis. Tricuspid Valve The tricuspid valve was not well visualized. Unable to report Unable to assess tricuspid valve regurgitation and stenosis due to poor Doppler exam. Cannot assess RVSP. Aortic Valve The aortic valve was not well visualized. The aortic valve is trileaflet. The leaflets are mildly thickened. There is no regurgitation or stenosis. Pulmonic Valve The pulmonic valve was not well visualized. Unable to assess pulmonic valve regurgitation and stenosis due to poor Doppler exam. Ascending Aorta The ascending aorta is(4.0 cm). Pericardium Pericardium appears normal. There is no pericardial effusion. Study Details Overall the study quality was technically difficult. Definity contrast was given to enhance imaging. Carmine Barton MD CV ECHO PROCEDUR ES Final Result * Hepatitis C antibody (09/04/2024 7:40 AM EST) Hepatitis C Antibody Negative Negative LAB CHEMISTRY METHOD 09/04/2024 11:19 AM EST [facility] Blood Venous blood specimen / Unknown Venipuncture / Unknown 09/04/2024 7:40 AM EST 09/04/2024 7:40 AM EST us Catie POLLOCK LAB BLOOD ORDERABLES Final Re sult Performing Organization Address City/[facility]/ZIP Co de Phone Number [facility] [address] [place] [address], [place] [phone] * HIV 1,2 antibody, p24 antigen with reflex to differentiation (09/04/2024 7:40 AM EST) [facility] HIV Combo AB/AG Negative Negative LAB CHEMISTRY METHOD 09/04/2024 11:20 AM EST [facility] Blood Venous blood specimen / Unknown Venipuncture / Unknown 09/04/2024 7:40 AM EST 09/04/2024 7:40 AM EST Narrative [facility] - 09/04/2024 11:20 AM EST This assay is a 4th generation assay allowing for earlier detection of HIV infection by detecting the presence of the HIV-1 p24 antigen as well as the traditional antibodies to HIV type 1 (including group O) and type 2. ??Use of a 4th generation assay is the current CDC recommendation for HIV screening. us Catie POLLOCK LAB BLOOD ORDERABLES Final Re sult Performing Organization Address City/[facility]/ZIP Co de Phone Number [facility] [address] [place] [address], [place] [phone] * Treponema pallidum antibody with reflex to RPR and particle agglutination (09/04/2024 7:40 AM EST) Pathologist [facility] T. Pallidum Antibodies Negative Negative LAB CHEMISTRY METHOD 09/04/2024 11:20 AM EST [facility] Blood Venous blood specimen / Unknown Venipuncture / Unknown 09/04/2024 7:40 AM EST 09/04/2024 7:40 AM EST us Catie POLLOCK LAB BLOOD ORDERABLES Final Re sult [facility] [address] [place] [address], [place] [phone] * (ABNORMAL) Lipid panel with reflex to direct LDL (09/04/2024 7:40 AM EST) Cholesterol 142 0 - 200 mg/dL LAB CHEMISTRY METHOD 09/04/2024 10:51 AM EST [facility] Triglycerides 411(H) 0 - 150 mg/dL LAB CHEMISTRY METHOD 09/04/2024 10:51 AM [facility] HDL 31(L) >=40 mg/dL LAB CHEMISTRY METHOD 09/04/2024 10:51 AM EST [facility] LDL Calculated 29 0 - 100 mg/dL LAB CHEMISTRY METHOD 09/04/2024 10:51 AM [facility] Comment:Unable to calculate when triglycerides >400 mg/dL. VLDL Cholesterol Sunny 82.2 mg/dL LAB CHEMISTRY METHOD 09/04/2024 10:51 AM [facility] Comment:Unable to calculate when triglycerides >400 mg/dL. Non HDL Chol. (LDL+VLDL) 111 <145 mg/dL LAB CHEMISTRY METHOD 09/04/2024 10:51 AM [facility] Comment:Unable to calculate when triglycerides >400 mg/dL. Chol/HDL Ratio 4.6(H) 0.0 - 4.4 LAB CHEMISTRY METHOD 09/04/2024 10:51 AM [facility] Blood Venous blood specimen / Unknown Venipuncture / Unknown 09/04/2024 7:40 AM EST 09/04/2024 7:40 AM EST us Catie POLLOCK LAB BLOOD ORDERABLES Final Re sult Performing Organization Address City/[facility]/ZIP Co de Phone Number [facility] [address] [place] [address], [place] [phone] * NATY IFA with titer and pattern (09/04/2024 7:40 AM EST) [facility] NATY Negative Negative 09/08/2024 10:36 AM EST [facility] Blood Venous blood specimen / Unknown Venipuncture / Unknown 09/04/2024 7:40 AM EST 09/04/2024 7:40 AM EST us Catie POLLOCK LAB BLOOD ORDERABLES Final Re sult Performing Organization Address [facility] de Phone Number [facility] [address] [place] [address], * Borrelia burgdorferi antibody (09/04/2024 7:40 AM EST) [facility] Lyme Ab Negative Negative LAB CHEMISTRY METHOD 09/04/2024 11:35 AM EST [facility] Comment: No laboratory evidence of infection with B. burgdorferi (Lyme disease). Negative results may occur in patients recently infected (<=14 days) with B. burgdorferi. ??If recent infection is suspected, repeat testing on a new sample collected in 7-14 days is recommended. Blood Venous blood specimen / Unknown Venipuncture / Unknown 09/04/2024 7:40 AM EST 09/04/2024 7:40 AM EST us Catie POLLOCK LAB BLOOD ORDERABLES Final Re sult Performing Organization Address City/[facility]/ZIP Co de Phone Number [facility] [address] [place] [address], [place] [phone] * (ABNORMAL) Microalbumin creatinine urine ratio (09/04/2024 7:40 AM EST) Creatinine, Urine 109.0 mg/dL LAB CHEMISTRY METHOD 09/04/2024 10:59 AM [facility] Microalb, Ur 110.0(H) 0.0 - 29.0 mg/L LAB CHEMISTRY METHOD 09/04/2024 10:59 AM [facility] Microalb/Crea t Ratio 101(H) <30 mg/g creat LAB CHEMISTRY METHOD 09/04/2024 10:59 AM [facility] Urine Urine specimen obtained by clean catch procedure / Unknown Non-blood Collection / Unknown 09/04/2024 7:40 AM EST 09/04/2024 7:40 AM EST us Catie POLLOCK LAB URINE ORDERABLES Final Re sult Performing Organization Address City/[facility]/ZIP Co de Phone Number [facility] [address] [place] [address], [place] [phone] * Chlamydia trachomatis and Neisseria gonorrhoeae molecular study (09/04/2024 7:40 AM EST) Neisseria gonorrhoeae PCR Negative Negative LAB MOLECULAR DIAGNOSTICS METHOD 09/04/2024 12:17 PM [facility] Chlamydia trachomatis PCR Negative Negative LAB MOLECULAR DIAGNOSTICS METHOD 09/04/2024 12:17 PM [facility] Swab Urine specimen / Unknown Non-blood Collection / Unknown 09/04/2024 7:40 AM EST 09/04/2024 7:40 AM EST us Catie POLLOCK LAB MICROBIOLOGY - GENERAL OR DERABLES Final Result [facility] [address] [place] [address], [place] [phone] * (ABNORMAL) Complete blood count (09/04/2024 7:40 AM EST) WBC 7.0 4.8 - 10.8 K/[facility] LAB HEMETOLOGY METHOD 09/04/2024 10:18 AM [facility] RBC 5.90(H) 4.50 - 5.50 M/mcL LAB HEMETOLOGY METHOD 09/04/2024 10:18 AM [facility] Hemoglobin 16.3 13.5 - 17.5 g/dL LAB HEMETOLOGY METHOD 09/04/2024 10:18 AM [facility] Hematocrit 49.9 42.0 - 54.0 % LAB HEMETOLOGY METHOD 09/04/2024 10:18 AM [facility] MCV 84.3 79.0 - 98.0 FL LAB HEMETOLOGY METHOD 09/04/2024 10:18 AM [facility] MCH 27.5 27.0 - 32.0 pcg LAB HEMETOLOGY METHOD 09/04/2024 10:18 AM [facility] MCHC 32.7 32.0 - 37.0 g/dL LAB HEMETOLOGY METHOD 09/04/2024 10:18 AM [facility] RDW 13.5 11.0 - 15.0 % LAB HEMETOLOGY METHOD 09/04/2024 10:18 AM [facility] Platelets 268 130 - 400 K/mcL LAB HEMETOLOGY METHOD 09/04/2024 10:18 AM [facility] MPV 10.3 7.0 - 11.0 FL LAB HEMETOLOGY METHOD 09/04/2024 10:18 AM [facility] NRBC 0.0 <1.0 % LAB HEMETOLOGY METHOD 09/04/2024 10:18 AM [facility] NRBC Absolute 0.00 <0.10 K/mcL LAB HEMETOLOGY METHOD 09/04/2024 10:18 AM [facility] Blood Venous blood specimen / Unknown Venipuncture / Unknown 09/04/2024 7:40 AM EST 09/04/2024 7:40 AM EST us Catie POLLOKC LAB BLOOD ORDERABLES Final Re sult Performing Organization Address [facility] Co de Phone Number [facility] [address] [place] [address], [place] [phone] * Rheumatoid factor (09/04/2024 7:40 AM EST) Pathologist [facility] Rheumatoid Factor <10.0 <15.0 I Unit/mL LAB CHEMISTRY METHOD 09/04/2024 10:51 AM EST [facility] Blood Venous blood specimen / Unknown Venipuncture / Unknown 09/04/2024 7:40 AM EST 09/04/2024 7:40 AM EST us Catie POLLOCK LAB BLOOD ORDERABLES Final Re sult Performing Organization Address [facility] Co de Phone Number [facility] [address] [place] [address], [place] [phone] * Uric acid (09/04/2024 7:40 AM EST) [facility] Uric Acid 4.6 3.7 - 9.2 mg/dL LAB CHEMISTRY METHOD 09/04/2024 10:27 AM EST [facility] Blood Venous blood specimen / Unknown Venipuncture / Unknown 09/04/2024 7:40 AM EST 09/04/2024 7:40 AM EST us Catie POLLOCK LAB BLOOD ORDERABLES Final Re sult Performing Organization Address City/[facility]/ZIP Co de Phone Number [facility] [address] [place] [address], [place] [phone] * (ABNORMAL) Hemoglobin A1c (09/04/2024 7:40 AM EST) [facility] Hemoglobin A1C 9.5(H) <6.5 % LAB CHEMISTRY METHOD 09/04/2024 1:50 PM EST [facility] Mean Bld Glu Estim. 226 mg/dL LAB CHEMISTRY METHOD 09/04/2024 1:50 PM [facility] Blood Venous blood specimen / Unknown Venipuncture / Unknown 09/04/2024 7:40 AM EST 09/04/2024 7:40 AM EST us Catie POLLOCK LAB BLOOD ORDERABLES Final Re sult Performing Organization Address [facility]/ZIP Co de Phone Number [facility] [address] [place] [address], [place] [phone] * Vitamin B12 (09/04/2024 7:40 AM EST) Pathologist [facility] Vitamin B-12 536 250 - 900 pcg/mL LAB CHEMISTRY METHOD 09/04/2024 10:51 AM EST [facility] Blood Venous blood specimen / Unknown Venipuncture / Unknown 09/04/2024 7:40 AM EST 09/04/2024 7:40 AM EST us Catie POLLOCK LAB BLOOD ORDERABLES Final Re sult Performing Organization Address [facility]/ZIP Co de Phone Number [facility] [address] [place] [address], [place] [phone] * (ABNORMAL) Comprehensive metabolic panel (09/04/2024 7:40 AM EST) Pathologist [facility] Sodium 137 133 - 145 mmol/L LAB CHEMISTRY METHOD 09/04/2024 10:51 AM EST [facility] Potassium 4.2 3.5 - 5.5 mmol/L LAB CHEMISTRY METHOD 09/04/2024 10:51 AM EST [facility] Chloride 105 96 - 110 mmol/L LAB CHEMISTRY METHOD 09/04/2024 10:51 AM EST [facility] CO2 28 21 - 32 mmol/L LAB CHEMISTRY METHOD 09/04/2024 10:51 AM [facility] Anion Gap 4 3 - 11 LAB CHEMISTRY METHOD 09/04/2024 10:51 AM [facility] Glucose 188(H) 70 - 100 mg/dL LAB CHEMISTRY METHOD 09/04/2024 10:51 AM [facility] BUN 18 5 - 25 mg/dL LAB CHEMISTRY METHOD 09/04/2024 10:51 AM [facility] Creatinine 0.95 0.70 - 1.30 mg/dL LAB CHEMISTRY METHOD 09/04/2024 10:51 AM [facility] eGFR 102 >=60 mL/min/1. 73m2 LAB CHEMISTRY METHOD 09/04/2024 10:51 AM [facility] Comment:Calculation based on the??Chronic Kidney Disease Epidemiology Collaboration (CKD-EPI) equation refit??without adjustment for race. BUN/Creatinine Ratio 18.9 LAB CHEMISTRY METHOD 09/04/2024 10:51 AM [facility] Calcium 9.7 8.5 - 10.5 mg/dL LAB CHEMISTRY METHOD 09/04/2024 10:51 AM [facility] AST (SGOT) 35 10 - 42 unit/L LAB CHEMISTRY METHOD 09/04/2024 10:51 AM [facility] ALT (SGPT) 103(H) 10 - 60 unit/L LAB CHEMISTRY METHOD 09/04/2024 10:51 AM [facility] Alkaline Phosphatase 135(H) 42 - 121 unit/L LAB CHEMISTRY METHOD 09/04/2024 10:51 AM [facility] Total Protein 7.7 6.0 - 8.0 g/dL LAB CHEMISTRY METHOD 09/04/2024 10:51 AM [facility] Albumin 3.8 3.2 - 5.0 g/dL LAB CHEMISTRY METHOD 09/04/2024 10:51 AM [facility] Total Bilirubin 1.0 0.0 - 1.4 mg/dL LAB CHEMISTRY METHOD 09/04/2024 10:51 AM EST [facility] Blood Venous blood specimen / Unknown Venipuncture / Unknown 09/04/2024 7:40 AM EST 09/04/2024 7:40 AM EST us Catie POLLOCK LAB BLOOD ORDERABLES Final Re sult [facility] ([facility] [address] [place] [address], [place] [phone] * XR Shoulder 2+ Views Left (09/02/2024 1:24 PM EST) Anatomical Region Laterality Modality Upper Extremities, Shoulder Left Radi ographic Imaging 09/02/2024 7:31 PM EST Impressions 09/02/2024 7:32 PM EST No acute fracture or dislocation of the left shoulder. Calcific bursitis versus calcific tendinitis. -------- FINAL REPORT -------- Dictated By: Adrián Roth Dictated Date: 09/02/2024 19:31 ET Assigned Physician: Adrián Roth Reviewed and Electronically Signed By: Adrián Roth Signed Date: 09/02/2024 19:32 ET Workstation ID: [id number] Transcribed By: Self Edit Transcribed Date: 09/02/2024 19:31 ET Narrative 09/02/2024 7:32 PM EST HISTORY: left shoulder pain TECHNIQUE: 4 views of the left shoulder COMPARISON: None FINDINGS: No acute fracture or dislocation is seen. There is no evidence of malalignment. The AC joint is intact. ??Tiny rounded calcification adjacent to the inferior acetabulum. Procedure Note Adrián Roth MD - 09/02/2024 HISTORY: left shoulder pain TECHNIQUE: 4 views of the left shoulder COMPARISON: None FINDINGS: No acute fracture or dislocation is seen. There is no evidence ofmalalignment. The AC joint is intact. Tiny rounded calcification adjacentto the inferior acetabulum. IMPRESSION: No acute fracture or dislocation of the left shoulder. Calcific bursitis versus calcific tendinitis. -------- FINAL REPORT -------- Dictated By: Adrián Roth Dictated Date: 09/02/2024 19:31 ET Assigned Physician: Adrián Roth Reviewed and Electronically Signed By: Adrián Roth Signed Date: 09/02/2024 19:32 ET Workstation ID: [id number] Transcribed By: Self Edit Transcribed Date: 09/02/2024 19:31 ET Catie POLLOCK IMG XR PROCEDURES Final Resul t from Last 3 Months Insurance MEDICARE [place]ICAID [place] Care Teams Business Objects Architect Relationship Specialty Start Date End Date Carmine Barton MD [address] [place] [id number] PCP - General Internal Medicine 08/24/24
--- OUTSIDE RECORDS SUMMARY | 2024-11-20 12:30 | XMS_ITS | Encounter Summary ---
Author Organization [facility] Address [address] [place] [address] Care Team Providers Care Order Selector Name Role Phone Carmine Barton MD Primary Care Pr ovider Reason for Visit * Reason Onset Date Comments Medication Problem 11/09/2024 clotrimazole (LOTRIMIN) 1 % cream Encounter Details Date Type Department Care Team ([facility] Contact Info) Description 11/09/2024 Telephone Adult Medicine [address] [phone] Vikram Cook PA [address] [place] [address] Medication Problem (clotrimazole (LOTRIMIN) 1 % cream) Social History Tobacco Use Types Packs/Day Years [...] PM EST documented as of this encounter Ordered Prescriptions Prescription Sig Dispense Quantity Refills Last Filled Start Date End Date ketoconazole (NIZORAL) 2 % cream Apply topically 2 (two) times a day. 60 g 11/15/2024 documented in this encounter Progress Notes * Efren Becker MA - 11/14/2024 2:02 PM EDT Please advise * Gely Corea - 11/09/2024 10:54 AM EDT Medication Problem: What is the name of the medication patient is having a problem with?: clotrimazole (LOTRIMIN) 1 % cream What is the problem?: MEDICATION NOT COVERED BY INSURANCE. PHARMACY ASKING FOR ALTERNATIVE MEDICATIONS KETOCONAZOLE CREAM Who is calling about the problem? : A pharmacist: Pharmacy: [facility] Pharmacist Name: Pharmacy Phone # Is this a NEW medication?: yes How long has the patient been taking this medication? Who prescribed this medication for the patient? VIKRAM COOK Who is patients PCP?: Carmine Barton MD Payor: MEDICARE / Plan: MEDICARE PART A & B / Product Type: Medicare / documented in this encounter Plan of Treatment Upcoming Encounters Date Type Department Care Team (Late st Contact Info) Description 12/08/2024 8:15 AM EDT Appointment Ultrasound - [address] [place] [address] 12/17/2024 11:10 AM EDT Office Visit Gastroenterology - [place] [address] [phone] Evelyne Goldsmith PA 175 [facility] [address] [place] [address] 01/01/2025 9:45 AM EDT Office Visit Adult Medicine [address] [phone] Carmine Barton MD [address] [place] [address] 02/10/2025 11:15 AM EDT Office Visit Endocrinology - [address] [phone] Kavitha Giron PA [address] [place] [phone] documented as of this encounter Visit Diagnoses Not on filedocumented in this encounter Care Teams Order Selector Relationship Specialty Start Date End Date Carmine Barton MD [address] [place] [id number] PCP - General Internal Medicine 08/24/24 documented as of this encounter
--- OUTSIDE RECORDS SUMMARY | 2024-11-20 12:30 | XMS_ITS | Encounter Summary ---
Author Organization [facility] Address [address] [place] [address] Care Team Providers Care Supervisor Tank Storage Name Role Phone Carmine Barton MD Primary Care Pr ovider Reason for Visit * Reason Onset Date Comments Shoulder Pain 11/16/2024 Encounter Details Date Type Department Care Team (Late st Contact Info) Description 11/16/2024 Telephone Adult Medicine [address] [phone] Carmine Barton MD [address] [place] [phone] Shoulder Pain Social History Tobacco Use Types Packs/Day Years [...] PM EST documented as of this encounter Progress Notes * Junie Lott RN - 11/16/2024 2:02 PM EDT Called and spoke with pt. Pt sts fell down stairs asked how many sts the top of stairs stepped on adog toy and slid down on elbows and pushed up to shoulders pt already has been doing PT for left shoulder pt [place] [facility] [place] neg xray still having pain er fu for 11/19 with care team. No head injury no dizziness or lightheadedness prior to fall * Phillip Blandondor - 11/16/2024 10:46 AM EDT Patient call requires triage: Symptoms patient is presenting: Patient called stating that he fell down the stairs at the start ofApril, states that the pain is still persisting , would like to speak to nurse to get advice on what to do , states that the last day that he had PT he fell down the stairs and injured his shoulder ,still in pain How long has patient had these symptoms?: a few days ago ( start of this month ) For ALL patients calling to schedule any appointment (routine, sick visit, follow up, consult, etc.) in the outpatient setting please ask the following questions: Do you have fever of higher than 101, sore throat with difficulty swallowing or severe shortness ofbreath? no If YES to any of these above symptoms, send a message to triage and do not book. Red dot. If no, an audio or video visit should be booked. Have you had close contact with someone with Coronavirus in the last 14 days? no Have you traveled abroad? no Have you traveled recently to another state outside of [place], [place], [place], [place], [place], [place], [place]? no o If yes, did you quarantine for 14 days or have a negative covid test? no If yes to any of the above, patient is not to be scheduled in office until after 14 day quarantine or negative covid test. If pain or injury related was it due to an accident at work or from a motor vehicle accident? If yes, date of accident/Injury: No If yes, gather 3rd constitution party insurance information Third Democrat Information: not applicable PCP: Carmine Barton MD Payor: MEDICARE / Plan: MEDICARE PART A & B / Product Type: Medicare / documented in this encounter Plan of Treatment Upcoming Encounters Date Type Department Care Team (Late st Contact Info) Description 12/08/2024 8:15 AM EDT Appointment Ultrasound - [place] [place] [address] 12/17/2024 11:10 AM EDT Office Visit Gastroenterology - [place] [address] [place] [address] Evelyne Goldsmith PA [address] [facility] [address] [place] [address] 01/01/2025 9:45 AM EDT Office Visit Adult Medicine [address] [phone] Carmine Barton MD [address] [place] [address] 02/10/2025 11:15 AM EDT Office Visit Endocrinology [address] [phone] Kavitha Giron PA [address] [place] [address] documented as of this encounter Visit Diagnoses Not on filedocumented in this encounter Care Teams Supervisor Tank Storage Relationship Specialty Start Date End Date Carmine Barton MD [address] [place] [address] PCP - General Internal Medicine 08/24/24 documented as of this encounter
--- OUTSIDE RECORDS SUMMARY | 2024-11-20 12:30 | XMS_ITS | Continuity of Care Document ---
Author Organization [facility] ter Address [address] [place] [id number]- Care Team Providers Care Employee Benefits Coordinator Name Role Phone Catie Robles Primary Care Physi grace Encounter [facility] [place] Date(s): 11/19/24 - 11/19/[address] [address]- Discharge Disposition: A-D/C Home Attending Physician: Buster Castaneda MD Admitting Physician: Buster Castaneda MD Referring Physician: Not on Staff, Referring MD Encounter Type: Disch ES Allergies, Adverse Reactions, Alerts Substance Criticality Severity Reaction Reaction Severity Status lisinopril Allergy to poll en Allergy to pollen Active Medications atorvastatin 40 mg oral tablet 1 tablet = 40 mg, By Mouth, Daily, Maintenance, 10/12/24 1:17:00 PM EDT, Partial fill upon patient request if the prescription is for a schedule II opioid drug. Start Date: 10/12/24 Status: Ordered Repeat number: 1 Bactrim DS 800 mg-160 mg oral tablet 1 tablet, By Mouth, 2 times a day, for 5 days, # 10 tablet, 0 Refills, Acute 11/24/24 4:16:00 PM EDT, 11/19/24 4:16:00 PM EDT, Tablet, [id number], Partial fill upon patient request if the prescription is for a schedule II opioid drug., 1 tablet By Mouth 2 times a day,x5 days, 175, cm, 11/19/24 12:53:00 EDT, Height, 144, kg, 11/19/24 12:53:00 EDT, Dry Weight Start Date: 11/19/24 Stop Date: 11/24/24 Status: Ordered Quantity: 10.0 Unit: tablet Repeat number: 1 clotrimazole 1% topical cream 1 applicator, Topically, 2 times a day, Maintenance, 10/12/24 1:10:00 PM EDT, Partial fill upon patient request if the prescription is for a schedule II opioid drug. Start Date: 10/12/24 Status: Ordered Repeat number: 1 Colace sodium 100 mg oral capsule 100 mg, 1, capsule, By Mouth, 2 times a day, PRN, Maintenance, as needed for constipation, 10/12/24 1:21:00 PM EDT, Partial fill upon patient request if the prescription is for a schedule II opioid drug. Start Date: 10/12/24 Status: Ordered Repeat number: 1 dicyclomine 10 mg oral capsule 1 capsule = 10 mg, By Mouth, 2 times a day before breakfast and dinne, Maintenance, 10/12/24 1:19:00PM EDT, Partial fill upon patient request if the prescription is for a schedule II opioid drug. Start Date: 10/12/24 Status: Ordered Repeat number: 1 Farxiga 10 mg oral tablet 1 tablet = 10 mg, By Mouth, Daily, Maintenance, 10/12/24 1:16:00 PM EDT, Tablet, Partial fill upon patient request if the prescription is for a schedule II opioid drug. Start Date: 10/12/24 Status: Ordered Repeat number: 1 fluticasone-salmeterol 55 mcg-14 mcg/inh inhalation powder 1 inhalation, Inhalation, 2 times a day, Maintenance, 10/12/24 1:18:00 PM EDT, Partial fill upon patient request if the prescription is for a schedule II opioid drug. Start Date: 10/12/24 Status: Ordered Repeat number: 1 Humalog Kwik Pen 100 units/mL subcutaneous injection = 20 units, Subcutaneous Injection, 3 times a day before meals, As directed per sliding scale, Maintenance, 10/12/24 1:15:00 PM EDT, Partial fill upon patient request if the prescription is for a schedule II opioid drug. Start Date: 10/12/24 Status: Ordered Repeat number: 1 losartan 25 mg oral tablet 25 mg, 1, tablet, By Mouth, Daily, Maintenance, 10/12/24 1:19:00 PM EDT, Partial fill upon patient request if the prescription is for a schedule II opioid drug. Start Date: 10/12/24 Status: Ordered Repeat number: 1 metoprolol 25 mg oral tablet, extended release 25 mg, 1, tablet, By Mouth, Daily, # 30 tablet, Refills 3, Tot. Refills 3, Maintenance, 01/22/18 12:51:58 PM EDT, Route to Pharmacy Electronically, [facility] [id number] Start Date: 01/22/18 Status: Ordered Quantity: 30.0 Unit: tablet Repeat number: 4 MiraLax oral powder for reconstitution = 17 Gm, By Mouth, 2 times a day, PRN Constipation, Maintenance, 10/12/24 1:11:00 PM EDT, Partial fill upon patient request if the prescription is for a schedule II opioid drug. Start Date: 10/12/24 Status: Ordered Repeat number: 1 ProAir Digihaler 90 mcg/inh inhalation powder 2 puffs, Inhalation, Every 6 hours, PRN Wheezing/Shortness of Breath, Maintenance, 10/12/24 1:18:00 PM EDT, Partial fill upon patient request if the prescription is for a schedule II opioid drug. Start Date: 10/12/24 Status: Ordered Repeat number: 1 Protonix 20 mg oral delayed release tablet 1 tablet = 20 mg, By Mouth, 2 times a day, Maintenance, 10/12/24 1:20:00 PM EDT Start Date: 10/12/24 Status: Ordered Repeat number: 1 Senna Plus 50 mg-8.6 mg oral tablet 1 tablet, By Mouth, Daily, Maintenance, 10/12/24 1:14:00 PM EDT, Partial fill upon patient request if the prescription is for a schedule II opioid drug. Start Date: 10/12/24 Status: Ordered Repeat number: 1 Toujeo Max SoloStar 300 units/mL subcutaneous solution = 80 units, Subcutaneous Injection, 2 times a day, Maintenance, 10/12/24 1:16:00 PM EDT, Partial fill upon patient request if the prescription is for a schedule II opioid drug. Start Date: 10/12/24 Status: Ordered Repeat number: 1 Problem List Condition Confirmation Course Effective Dates Status H ealth Status Informant Asthma Confirmed Active Morbid obesity with BMI of 40.0-44.9, adult Confirmed Active Chronic GERD Confirmed Active H/O blood clots Confirmed Active Hyperlipidemia Confirmed Active Hypertension Confirmed Active Obstructive sleep apnea Confirmed Active Severe obesity Confirmed Active Type II diabetes mellitus Confirmed Active Vital Signs Most recent to oldest [Reference Range]: 1 2 3 Height 175 cm (11/19/24 12:53 PM) 175 cm (11/19/24 12:35 PM) Weight 144 kg (11/19/24 12:53 PM) 144 kg (11/19/24 12:35 PM) Oxygen Saturation [94-100 %] 98 % (11/19/24 3:42 PM) 100 % (11/19/24 12:35 PM) 99 % (11/19/24 12:30 PM) Pulse Rate [55-90 bpm] 88 bpm (11/19/24 3:42 PM) 101 bpm *H* (11/19/24 12:35 PM) 97 bpm *H* (11/19/24 12:30 PM) Body Mass Index [18.5-24.99 kg/m2] 47.02 kg/m2 *>HHI* (11/19/24 12:35 PM) Blood Pressure [90-138/55-84 mm Hg] 109/79mm Hg (11/19/24 3:42 PM) 122/82mm Hg (11/19/24 12:35 PM) Respiratory Rate [16-30 br/min] 16 br/min (11/19/24 3:42 PM) 18 br/min (11/19/24 12:35 PM) Temperature [96.8-100.4 DegF] 98.3 DegF (11/19/24 3:42 PM) 97.9 DegF (11/19/24 12:35 PM) Mode of Delivery (Oxygen) Room air (11/19/24 3:42 PM) Room air (11/19/24 12:35 PM) Room air (11/19/24 12:30 PM) Blood pressure sites Arm, left (11/19/24 12:35 PM) Temperature Route Oral (11/19/24 3:42 PM) Oral (11/19/24 12:35 PM) Dry Weight 144 kg (11/19/24 12:53 PM) 144 kg (11/19/24 12:35 PM) Weight Obtained Via Patient/family state d (11/19/24 12:35 PM) Dry Weight Obtained Via Patient/family s tated (11/19/24 12:35 PM) Social History Social History Type Response Smoking Status Never (less than 100 in lifetime) entered on: 06/03/19 Sex Male Sex Representation Male (finding) Note * Marcello Mayo: PERFORM Event Display: Patient Education Leaflets Authored Date: [id number] Infected Pilonidal Cyst (Antibiotic Treatment) ?? [id number] Infected Pilonidal Cyst (Antibiotic Treatment) A pilonidal cyst is a swelling that starts under the skin on the sacrum near the tailbone. It may look like a small dimple. It can fill with skin oils, hair, and skin cells. It may stay small orgrow larger. It may become infected with normal skin bacteria because it often has an opening to the surface. Causes The cause of pilonidal cysts has been debated since they were first recognized. A cyst may be present at and go unnoticed. Injury, rubbing, or skin irritation may also cause pilonidal cysts. Itcan also be caused by an ingrown hair. The cause is most likely a combination of these things. Someinjury or irritation can lead to pilonidal cysts. So they can be more common in people who sit or drive a lot for work. ?? Symptoms A pilonidal cyst may be small and painless. If it becomes inflamed or infected, you may have these symptoms: ??? Swelling ??? Irritation or redness ??? Pain ??? Drainage The cyst can swell and drain on its own. The swelling and drainage can come and go. ?? Treatment A limited infection can be treated with antibiotics and home care. You have been given antibiotics to treat your infected pilonidal cyst. ?? Home care The following guidelines will help you care for your wound at home: ? Don't squeeze the pilonidal cyst or stick a needle in it to drain it. This will make the infection worse, or spread it. ??? Cover the cyst with a pad or something similar. This is to keep it from becoming more irritated, damaged, and painful. ??? Talk with your healthcare provider about comfort measures. like applying warm, moist compresses to the cyst or sitting in a warm bath. Follow your provider's specific instructions. Medicines ??? Take acetaminophen or ibuprofen for pain unless you were given a different pain medicine to use. Talk with your healthcare provider before using these medicines if you have chronic liver or kidney disease. Also talk with them if you've ever had a stomach ulcer or digestive bleeding. Or if you're taking blood-thinner medicines. ??? Take the antibiotics that you were prescribed until they are all gone. To make sure the infection is cured, it's important to finish the antibiotics even if the wound looks better. ??? Use??antibiotic cream or ointment if your healthcare provider has prescribed it for you. ?? Preventing future infections Once this infection has healed, follow these tips to lower the risk for another infection: ??? Keepthe area of the cyst clean by bathing or showering every day. ??? Don't wear tight-fitting clothing. This will help lessen sweat and irritation of the skin. ??? You may need surgery to completely remove the cyst if it keeps coming back. The surgery can only be done when the cyst isn't infected. Askyour healthcare provider for more information. ??? Watch??for signs of infection listed below so that treatment may be started early. ?? Follow-up care Follow up with your healthcare provider as advised. Check your wound every day for the signs listedbelow. ?? When to get medical care Call your healthcare provider right away if any of these occur: ??? Pus coming from the cyst ??? Increasing local pain, redness, or swelling ??? Fever of 100.4??F (38.0??C) or higher, or as advised by your provider ?? Last Reviewed Date: 2021 00:00:00 ?? [id number] [employer]. All rights reserved. This information is not intended as a substitute for professional medical care. Always follow your healthcare professional's instructions. ?? * Marcello Mayo: PERFORM Event Display: Patient Education Leaflets Authored Date: [id number] Infected Pilonidal Cyst (Incision & Drainage) ?? [id number] Infected Pilonidal Cyst (Incision & Drainage) A pilonidal cyst is a swelling that starts under the skin on the sacrum near the tailbone. It may look like a small dimple. It can fill with skin oils, hair, and skin cells. It may stay small orgrow larger. Because it often has an opening to the surface, it may become infected with normal skin bacteria. Cause The??cause of pilonidal cysts has been debated since they were first recognized. It may be present at and go unnoticed. Injury, rubbing, or skin irritation may also cause pilonidal cysts. It can also be caused by an ingrown hair. Most likely, the cause is a combination of these things. Because some injury or irritation can lead to pilonidal cysts, it can be more common in people who sit or drive a lot for work. ?? Symptoms A pilonidal cyst may be small and painless. If it's inflamed or infected, you may have these symptoms: ??? Swelling ??? Irritation or redness ??? Pain ??? Drainage The cyst can swell and drain on its own. The swelling and drainage can come and go. ?? Treatment Your pilonidal cyst was drained with a small incision using local anesthesia. After the incision and drainage, gauze packing may be inserted into the opening. If so, it should be removed in 1 to 2 days, or as advised. Antibiotics may not be required to treat a simple abscess, unless the infection spreads into the skin around the wound. The wound will take about 1 to 2 weeks to heal depending on the size of the cyst. ?? Home care Wound care ??? Pus may drain from the wound for the first few days. Cover the wound with a clean dry bandage. Change the bandage if it becomes soaked with blood or pus, or if it gets soiled with feces or urine.??? If??gauze packing was placed inside the cyst cavity, you may be told to remove it yourself. Youmay do this in the shower. Once the packing is removed, you should wash the area carefully in the shower once a day. Do this until the skin opening has closed. It's OK to direct the shower spray directly into the opening if this is not too painful. ??? Be sure to carefully discard the bandages or packing to avoid spreading infection. Medicines ??? Take acetaminophen or ibuprofen for pain, unless you were given a different pain medicine to use. Talk with your healthcare provider before using these medicines if you have chronic liver or kidney disease or have ever had a stomach ulcer or digestive bleeding. Also talk with your provider if you're taking blood-thinner medicines. ??? If you were given antibiotics, take them until they are gone. It's important to finish the antibiotics even if the wound looks better. This is to make sure the infection has cleared completely. ??? Use antibiotic cream or ointment if your provider tells you to do so. ?? Prevention Once this infection has healed, the following may decrease the risk of future infections: ??? Keep the area of the cyst clean by bathing or showering daily. ??? Don't wear tight-fitting clothing to minimize perspiration and irritation of the skin. ??? Pilonidal cysts that come back may be completely removed by surgery. But this can be done only at a time when there is no infection. Ask your healthcare provider for more information. ?? Follow-up care Follow up with your healthcare provider as advised. If a gauze packing was inserted in your wound, it should be removed in 1 to 2 days, or as directed. Check your wound every day for the signs of infection listed below. ?? When to get medical advice Call your healthcare provider right away if any of these occur: ??? Pus continues to come from the cyst for??5 days after the incision ??? Increasing redness, local pain, or swelling ??? Fever of 100.4??F (38.0??C) or higher, or as advised by your provider ?? Last Reviewed Date: 2021 00:00:00 ?? [id number] [employer]. All rights reserved. This information is not intended as a substitute for professional medical care. Always follow your healthcare professional's instructions. ?? Patient Care team information Care Team Personnel Name: Radha Razo RN Position: [facility] RN Member Role: Primary Care Nurse Name: Cindy Bailon Position: [facility] Outreach Member Role: Lifetime Consulting Physician Name: Catie Robles Position: Reference Physician Member Role: PCP Address: [address] [place] [address] Telecom: Name: Suzi Holguin Position: [facility] Outreach Member Role: Lifetime Consulting Physician Name: Efrain MATA, Teetee Position: [facility] RN Member Role: Primary Care Nurse Care Team Related Persons Name: NORTH GIL Insurance Providers Guarantor name: OSMANY GIL Telderi Information #: 1 Payer: MEDICARE PART B OUTPT Member Number: [id number] Policy Number: NA Group Number: NA Health Plan Information #: 2 Payer: [facility] Member Number: [id number] Policy Number: NA Group Number: [id number]
--- OUTSIDE RECORDS SUMMARY | 2024-11-20 12:30 | XMS_ITS | Data Portability ---
Author Organization [facility], Main Office Address [address] [place] [address] Care Team Providers Care Security Investigator Name Role Phone CHRISTOPHER JACOB Primary Care Provider VANDANA BAUMAN Referring Provider [phone] LIZA MCCRACKEN Referring Provider [phone] [facility] Referring Provider [phone] BRAYAN DAY Referring Provider [facility] Referring Provider [phone] [facility] Referring Provider [phone] HONG FINLEY Referring Provider [facility] Referring Provider VIDAL STOVER Referring Provider [phone] HERIBERTO HINDS Referring Provider [phone] Assessment No assessment recorded. Plan of Treatment Reminders Order Date Submit Date Provider Last Modified By Organization Details Last Modified Time Details Appointments None recorded . Lab vitamin D, 25-hydro xy, total, serum 2017 018 [facility], [address], [place], [address], 8 21:07:51 TSH, serum or plasma 2017 018 [facility], [address], [place], [address], 8 20:42:29 BMP, serum or plasma 2017 018 [facility], [address], [place], [address], 8 20:28:56 BMP, serum or plasma 2017 018 [facility], [address], [place] [address], [place], [address], 8 21:01:46 ALT (alanine aminotra nsferase ), serum or plasma 2017 018 [facility], [address], [place] [address], [place], [place], [address], 8 21:01:45 CBC w/ auto diff 2017 018 [facility], [address], [place] [address], [place], [place], [address], 8 19:31:32 hemoglob in A1C, fingerst ick 2017 018 [email or web address] In-Office Order, Internal Use Only DO Not Attach Compendium DO Not Attach Compendium, Do Not Delete/merge, [id number] 8 13:49:06 Referral bariatri jojo surgery referral - Morbid obesity with a BMI hovering around 50 for the last 10 years. He is being seen by cardiolo gy October 2017 because of an EF of 40%. He also is mildly cognitiv nayely delayed. 2017 018 eleazar Cobb MD, [address] , [facility] [address], [place], [address], 8 16:21:53 Procedures None recorded . Surgeries None recorded . Imaging None recorded . Medication Orders metformi n 1,000 mg tablet 2017 018 [id number], [address] [place], [place], [id number], 8 13:54:00 Patient Targets Encounter Date Encounter Id Patient Goals Patient Target Last Modified By Organization Details Last Modified Time 01/03/2018 [id number] Microalbumin/Cr eatinine Ratio yearly Not available Not [...] By Organization Details Last Modified Time 10/07/2017 [id number] I have reviewed the note and agree with the assessment and plan of care. miesha Not available 10/07/2017 15:12:42 10/09/2017 [id number] At [facility] follow up visit, all current and discharge [...] care. [email or web address] Not available 10/10/2017 08:01:11 01/03/2018 [id number] Medications (OTC, herbal therapies, supplements) reviewed and reconciled with patient and or caregiver, including potential side effects, drug interactions, instructions, and the consequences of not taking medication. Reviewed potential barriers to medication adherence, such as side effects from medication or cost of medication. [email or web address] Not available 01/03/2018 13:04:07 01/24/2018 [id number] Unable to reconcile patient's medicaitons over phone. UNclear to this adjusto writer operator if patient literate. Home visit needed. I have reviewed the note. [email or web address] Not available 02/06/2018 17:00:49 03/31/2018 [id number] irritable bowel syndrome: care instructions pmadden Not [...] Abnormal Flag Note LastModifiedBy Organization Detail LastModifiedTime 01/04/2001/03/2018 CBC w/ auto diff WBC 6.9 K/mm3 (4.0-1 1.0) Not Available [facility] (Centralized Electronic Ordering - All Locations) Patient Can Go To The Location Of Their Choice, [id number] 01/03/2018 19:31:32 01/04/20 18 01/03/2018 CBC w/ auto diff RBC 5.31 M/mm3 (4.70- 6.10) Not Available [facility] (Centralized Electronic Ordering - All Locations) Patient Can Go To The Location Of Their Choice, [id number] 01/03/2018 19:31:32 01/04/20 18 01/03/2018 CBC w/ auto diff HGB 14.1 gm/dL (13.7- 16.5) Effec tive December 27 18, Aleah sánchez refer ence range s for HGB and HCT have been updat ed to align with Edwin Ring ocollin of Aleah cope , Ed 2015 and Polly Stovall ocollin Ed, 2017. Not Available [facility] (Centralized Electronic Ordering - All Locations) Patient Can Go To The Location Of Their Choice, 01/03/2018 19:31:32 01/04/2001/03/2018 CBC w/ auto diff HCT 42.9 % (40.5- 48.5) Effec tive December 27, Aleah sánchez refer ence range s for HGB and HCT have been updat ed to align with Edwin Ring ook of Aleah cope , Ed 2015 and Polly Handb ook Ed, 2017. Not Available [facility] (Centralized Electronic Ordering - All Locations) Patient Can Go To The Location Of Their Choice, 01/03/2018 19:31:32 01/04/2001/03/2018 CBC w/ auto diff MCV 80.8 fL (80.0- 94.0) Not Available [facility] (Centralized Electronic Ordering - All Locations) Patient Can Go To The Location Of Their Choice, 01/03/2018 19:31:32 01/04/2001/03/2018 CBC w/ auto diff MCH 26.6 pg (27.0- 34.0) low Not Available [facility] (Centralized Electronic Ordering - All Locations) Patient Can Go To The Location Of Their Choice, 01/03/2018 19:31:32 01/04/2001/03/2018 CBC w/ auto diff MCHC 32.9 g/dL (33.0- 37.0) low Not Available [facility] (Centralized Electronic Ordering - All Locations) Patient Can Go To The Location Of Their Choice, 01/03/2018 19:31:32 01/04/2001/03/2018 CBC w/ auto diff plt 272 K/mm3 (150-4 60) Not Available [facility] (Centralized Electronic Ordering - All Locations) Patient Can Go To The Location Of Their Choice, 01/03/2018 19:31:32 01/04/2001/03/2018 CBC w/ auto diff RDW-SD 38.0 fL (<47.0 ) Not Available [facility] (Centralized Electronic Ordering - All Locations) Patient Can Go To The Location Of Their Choice, 01/03/2018 19:31:32 01/04/2001/03/2018 CBC w/ auto diff MPV 10.7 fL (9.4-1 2.4) Not Available [facility] (Centralized Electronic Ordering - All Locations) Patient Can Go To The Location Of Their Choice, 01/03/2018 19:31:32 01/04/2001/03/2018 CBC w/ auto diff automated NRBC 0.0 #/100 _WBC' s Not Available [facility] (Centralized Electronic Ordering - All Locations) Patient Can Go To The Location Of Their Choice, 01/03/2018 19:31:32 01/04/2001/03/2018 CBC w/ auto diff abs. NRBC 0.0 K/mm3 Not Available [facility] (Centralized Electronic Ordering - All Locations) Patient Can Go To The Location Of Their Choice, 01/03/2018 19:31:32 01/04/2001/03/2018 CBC w/ auto diff neut # 4.2 K/mm3 (1.3-7 .0) Not Available [facility] (Centralized Electronic Ordering - All Locations) Patient Can Go To The Location Of Their Choice, 01/03/2018 19:31:32 01/04/2001/03/2018 CBC w/ auto diff lymph # 2.0 K/mm3 (0.8-3 .1) Not Available [facility] (Centralized Electronic Ordering - All Locations) Patient Can Go To The Location Of Their Choice, 01/03/2018 19:31:32 01/04/2001/03/2018 CBC w/ auto diff mono# 0.6 K/mm3 (0.4-1 .3) Not Available [facility] (Centralized Electronic Ordering - All Locations) Patient Can Go To The Location Of Their Choice, 01/03/2018 19:31:32 01/04/2001/03/2018 CBC w/ auto diff eo # 0.1 K/mm3 (0.0-0 .4) Not Available [facility] (Centralized Electronic Ordering - All Locations) Patient Can Go To The Location Of Their Choice, 01/03/2018 19:31:32 01/04/2001/03/2018 CBC w/ auto diff baso # 0.0 K/mm3 (0.0-0 .1) Not Available [facility] (Centralized Electronic Ordering - All Locations) Patient Can Go To The Location Of Their Choice, 01/03/2018 19:31:32 01/04/2001/03/2018 CBC w/ auto diff abs. imm gran 0.0 K/mm3 Not Available [facility] (Centralized Electronic Ordering - All Locations) Patient Can Go To The Location Of Their Choice, 01/03/2018 19:31:32 01/04/2001/03/2018 CBC w/ auto diff neut 61.2 % (44-76 ) Not Available [facility] (Centralized Electronic Ordering - All Locations) Patient Can Go To The Location Of Their Choice, 01/03/2018 19:31:32 01/04/2001/03/2018 CBC w/ auto diff lymph 28.1 % (15-43 ) Not Available [facility] (Centralized Electronic Ordering - All Locations) Patient Can Go To The Location Of Their Choice, 01/03/2018 19:31:32 01/04/2001/03/2018 CBC w/ auto diff monocyte 8.2 % (4.5-1 0.5) Not Available [facility] (Centralized Electronic Ordering - All Locations) Patient Can Go To The Location Of Their Choice, 01/03/2018 19:31:32 01/04/2001/03/2018 CBC w/ auto diff eo 1.7 % (0-6) Not Available [facility] (Centralized Electronic Ordering - All Locations) Patient Can Go To The Location Of Their Choice, 01/03/2018 19:31:32 01/04/2001/03/2018 CBC w/ auto diff baso 0.4 % (0-2) Not Available [facility] (Centralized Electronic Ordering - All Locations) Patient Can Go To The Location Of Their Choice, 01/03/2018 19:31:32 01/04/2001/03/2018 CBC w/ auto diff imm gran 0.4 % (0.0-0 .6) Not Available [facility] (Centralized Electronic Ordering - All Locations) Patient Can Go To The Location Of Their Choice, 01/03/2018 19:31:32 01/04/2001/03/2018 ALT (terri ine amino trans feras e), serum or plasm a ALT 86 U/L (0-41) high Not Available [facility] (Centralized Electronic Ordering - All Locations) Patient Can Go To The Location Of Their Choice, 01/03/2018 21:01:45 01/04/2001/03/2018 BMP, serum or plasm a glucose 211 mg/dL (70-99 ) high Not Available [facility] (Centralized Electronic Ordering - All Locations) Patient Can Go To The Location Of Their Choice, 01/03/2018 21:01:46 01/04/2001/03/2018 BMP, serum or plasm a BUN 12 mg/dL (6-20) Not Available [facility] (Centralized Electronic Ordering - All Locations) Patient Can Go To The Location Of Their Choice, 01/03/2018 21:01:46 01/04/2001/03/2018 BMP, serum or plasm a creatinine 1.0 mg/dL (0.7-1 .2) Not Available [facility] (Centralized Electronic Ordering - All Locations) Patient Can Go To The Location Of Their Choice, 01/03/2018 21:01:46 01/04/2001/03/2018 BMP, serum or plasm a sodium 138 mmol/ L (133-1 45) Not Available [facility] (Centralized Electronic Ordering - All Locations) Patient Can Go To The Location Of Their Choice, 01/03/2018 21:01:46 01/04/2001/03/2018 BMP, serum or plasm a potassium 4.4 mmol/ L (3.6-5 .2) Not Available [facility] (Centralized Electronic Ordering - All Locations) Patient Can Go To The Location Of Their Choice, 01/03/2018 21:01:46 01/04/2001/03/2018 BMP, serum or plasm a chloride 102 mmol/ L (98-10 7) Not Available [facility] (Centralized Electronic Ordering - All Locations) Patient Can Go To The Location Of Their Choice, 01/03/2018 21:01:46 01/04/2001/03/2018 BMP, serum or plasm a bicarbonate 26 mmol/ L (22-29 ) Not Available [facility] (Centralized Electronic Ordering - All Locations) Patient Can Go To The Location Of Their Choice, 01/03/2018 21:01:46 01/04/2001/03/2018 BMP, serum or plasm a anion gap 10 (4-17) Not Available [facility] (Centralized Electronic Ordering - All Locations) Patient Can Go To The Location Of Their Choice, 01/03/2018 21:01:46 01/04/20 18 01/03/2018 BMP, serum or plasm a calcium 9.4 mg/dL (8.6-1 0.5) Not Available [facility] (Centralized Electronic Ordering - All Locations) Patient Can Go To The Location Of Their Choice, 01/03/2018 21:01:46 01/04/20 18 01/03/2018 BMP, serum [...] Afric an Ameri cans. Not Available [facility] (Centralized Electronic Ordering - All Locations) Patient Can Go To The Location Of Their Choice, 01/03/2018 21:01:46 01/04/20 18 01/03/2018 BMP, serum [...] [place] an [employer] cans. Not Available [facility] (Centralized Electronic Ordering - All Locations) Patient Can Go To The Location Of Their Choice, 01/03/2018 21:01:46 01/04/20 18 01/03/2018 hemog lobin A1C, finge rstic k HA1C 9.1 % 4-6 Not Available In-Office Order Internal Use Only DO Not Attach Compendium DO Not Attach Compendium, Do Not Delete/merge, [id number] 01/03/2018 13:04:57 03/31/2003/31/2018 BMP, serum or plasm a glucose 152 mg/dL (70-99 ) high Not Available [facility] (Centralized Electronic Ordering - All Locations) Patient Can Go To The Location Of Their Choice, 03/31/2018 20:28:56 03/31/2003/31/2018 BMP, serum or plasm a BUN 16 mg/dL (6-20) Not Available [facility] (Centralized Electronic Ordering - All Locations) Patient Can Go To The Location Of Their Choice, 03/31/2018 20:28:56 03/31/2003/31/2018 BMP, serum or plasm a creatinine 0.9 mg/dL (0.7-1 .2) Not Available [facility] (Centralized Electronic Ordering - All Locations) Patient Can Go To The Location Of Their Choice, 03/31/2018 20:28:56 03/31/2003/31/2018 BMP, serum or plasm a sodium 142 mmol/ L (133-1 45) Not Available [facility] (Centralized Electronic Ordering - All Locations) Patient Can Go To The Location Of Their Choice, 03/31/2018 20:28:56 03/31/2003/31/2018 BMP, serum or plasm a potassium 4.3 mmol/ L (3.6-5 .2) Not Available [facility] (Centralized Electronic Ordering - All Locations) Patient Can Go To The Location Of Their Choice, 03/31/2018 20:28:56 03/31/2003/31/2018 BMP, serum or plasm a chloride 105 mmol/ L (98-10 7) Not Available [facility] (Centralized Electronic Ordering - All Locations) Patient Can Go To The Location Of Their Choice, 03/31/2018 20:28:56 03/31/2003/31/2018 BMP, serum or plasm a bicarbonate 23 mmol/ L (22-29 ) Not Available [facility] (Centralized Electronic Ordering - All Locations) Patient Can Go To The Location Of Their Choice, 03/31/2018 20:28:56 03/31/2003/31/2018 BMP, serum or plasm a anion gap 14 (4-17) Not Available [facility] (Centralized Electronic Ordering - All Locations) Patient Can Go To The Location Of Their Choice, 03/31/2018 20:28:56 03/31/2003/31/2018 BMP, serum or plasm a calcium 9.1 mg/dL (8.6-1 0.5) Not Available [facility] (Centralized Electronic Ordering - All Locations) Patient Can Go To The Location Of Their Choice, 03/31/2018 20:28:56 03/31/2003/31/2018 BMP, serum or plasm a est GFR [...] [employer]. Not Available [facility] (Centralized Electronic Ordering - All Locations) Patient Can Go To The Location Of Their Choice, 03/31/2018 20:28:56 03/31/2003/31/2018 BMP, serum or plasm a est GFR [...] [employer]. Not Available [facility] (Centralized Electronic Ordering - All Locations) Patient Can Go To The Location Of Their Choice, 03/31/2018 20:28:56 03/31/2003/31/2018 TSH, serum or plasm a TSH 1.17 mIU/m L (0.40- 4.00) Not Available [facility] (Centralized Electronic Ordering - All Locations) Patient Can Go To The Location Of Their Choice, [id number] 03/31/2018 20:42:29 03/31/20 18 03/31/2018 vitam in D, 25-hy droxy , total , serum 25OH vitamin D 13.0 NG/mL (20-50 ) low Serum 25OHD : 12 to 19 ng/ml : at risk of vitam in D inade quacy . Refer ence: [facility] Data Brief : No.59 October: Vitam in D Statu s: Unite d State s: 2000- 2005 As of , Vitam in D, 25-Hy droxy assay has been mclaughlin ed. In some [facility], the new assay may yield a highe r value (up to 15% incre ase) in césar rison to the old assay . These incre ases would mainl y be notic eable at value s of great er than 50 ng/ml . Not Available [facility] (Centralized Electronic Ordering - All Locations) Patient Can Go To The Location Of Their Choice, [id number] 03/31/2018 21:07:51 10/10/19 18 10/06/2017 NM, myoca [...] Organization Details Recorded Time Abdomina l pain [id number] Completed 201302/23/2014 RECORDED 12/16/19 14 2:30PM BY EVERTON DE LA O MA, ANNOTATI ON/ADDEN DUM AIDEE Morrow [place] - [facility] [place] 7 09:04:19 Epigastr ic pain [id number] Completed 201102/23/2014 RECORDED 02/14/20 12 10:48AM BY CLAUDY CHAUHAN ON/ADDEN ARIN zacarias MD [address], [place], [address], [facility] 6 08:48:26 Acute pharyngi tis 592490446 Completed 201102/23/2014 RECORDED 02/14/20 12 10:48AM BY CLAUDY CHAUHAN ON/ADDEN ARIN zacarias MD [address], [place], [address], [facility] 6 08:48:25 Allergic rhinitis 87925095 Completed 201102/23/2014 RECORDED 02/14/20 12 10:48AM BY CLAUDY CHAUHAN ON/ADDBELIA zacarias MD [address], [place], [address], [facility] 6 08:48:25 Anxiety state [id number] Active Christopher zacarias MD [address] [facility] [address], [place], [address], [facility] 6 08:48:25 Sleep apnea [id number] Completed 201102/23/2014 RECORDED 02/14/20 12 10:48AM BY CLAUDY CHAUHAN ON/ADDEN ARIN zacarias MD [address] [facility] [address], [place], [address], [facility] 6 08:48:25 Asthma [id number] Gabriel zacarias MD [address], [place], [address], [facility] 6 08:48:25 Acute asthma 002278492 Completed 201102/23/2014 IMPRESSI ON: HE HAS IMPROVED AND WILL CONTINUE WITH CURRENT MGMT; RECORDED 07/15/20 12 9:53AM BY CLAUDY CHAUHAN ON/JEMMA zacarias MD [address] [facility] [address], [place], [address], [facility] 6 08:48:25 Attentio n deficit hyperact ivity disorder 898821167 Active Christopher zacarias MD [address] [facility] [facility] [address], [place], [address], [facility] 6 08:48:25 Backache 429835277 Completed 201302/23/2014 IMPRESSI ON: ONGOING ISSUE FOR ALMOST A YR. SWITCH TRAMADOL TO FLEXERIL FOR SHORT TERM TREATMEN T. COUNSELE D DROWSINE SS. X-RAY TO CHECK FOR SCOLIOSI S AND R/O ANKYLOSI NG SPONDYLI TIS; RECORDED 11/11/19 14 1:48PM BY DEJA SMITH MA, CLAUDY ON/JEMMA zacarias MD [address] [facility] [address] [facility] [address], [place], [address], [facility] 6 08:48:25 Pain in thoracic spine 572443888 Completed 201102/23/2014 IMPRESSI ON: APPEARS MUSCULAR , RECOMMEN D NSAIDS, STRETCHI NG EXERCISE S, HEATING PAD. ALSO DISCUSSE D GENERAL IMPORTAN CE OF WEIGHT LOSS( T/EXERCI SE); RECORDED 02/14/20 12 10:48AM BY CLAUDY CHAUHAN ON/JEMMA zacarias MD [address] [facility] [address] [facility] [address], [place], [address], [facility] 6 08:48:25 Intestin al malabsor ption 360352209 Completed 201202/23/2014 IMPRESSI ON: S/P CHOLECYS TECTOMY. [facility] ABOUT THIS REVIEWED . EAT SMALL FREQUENT MEALS, MINIMIZE FATTY FOODS. MINIMIZE CAFFEINE . IF NOT IMPROVIN G, CAN CALL FOR RX FOR CHOLESTY RAMINE. THIS CONDITIO N SHOULD HOPEFULL Y RESOLVE SOON SINCE MOST PEOPLE GET BETTER A FEW MONTHS AFTER CHOLECYS TECTOMY. ; RECORDED 04/07/20 13 8:51AM BY CLAUDY CHAUHAN ON/ADDEN ARIN zacarias MD [address] [address], [place], [address], [facility] 6 08:48:25 Chest pain 33530177 Completed 201102/23/2014 RECORDED 02/14/20 12 10:49AM BY CLAUDY CHAUHAN ON/ADDEN ARIN zacarias MD [address] [address], [place], [address], [facility] 6 08:48:25 Breathin g painful 72371518 Completed 201102/23/2014 RECORDED 02/14/20 12 10:48AM BY CLAUDY CHAUHAN ON/ADDEN DUM Christopher zacarias MD [address] [address], [place], [place], [address], [facility] 6 08:48:25 Chronic kidney disease stage 1 222695732 Active Christopher zacarias MD [address] [address], [place], [address], [facility] 6 15:59:58 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 [place], [address], [facility] 6 08:48:25 Cough 74166403 Completed 201102/23/2014 RECORDED 02/14/20 12 11:13AM BY CHRISTOPHER JOHN MD, CLAUDY ON/ADDEN DUM Christopher zacarias MD [address] [address], [place], [address], [facility] 6 08:48:25 Single major depressi ve episode Active Christopher zacarias MD [address] [facility] [address], [place], [address], [facility] 6 08:48:25 Renal disorder due to type 2 diabetes mellitus 925346425 Active Christopher zacarias MD [address] [facility] [address], [place], [address], [facility] 6 15:59:58 Dysuria 06342475 Completed 201102/23/2014 RECORDED 02/14/20 12 10:48AM BY CLAUDY CHAUHAN ON/ADDEN DUM Christopher zacarias MD [address] [facility] [address], [place], [address], [facility] 6 08:48:26 Follow-u p encounte r Completed 201102/23/2014 RECORDED 04/24/20 12 11:25AM BY CLAUDY CHAUHAN ON/ADDEN DUM Christopher zacarias MD [address] [facility] [address], [place], [address], [facility] 6 08:48:26 Gastroes ophageal reflux disease 409233081 Active Had a pH probe that was positive December 2015 and a manometr y study that was also positive December 2015 Christopher zacarias MD [address] [facility] [address], [place], [address], [facility] 6 12:44:09 Chronic nonalcoh olic liver disease 61248526 Active Christopher zacarias MD [address] [facility] [address], [place], [address], [facility] 6 08:48:25 Influenz a vaccine needed 88606570473 06 Completed 201302/23/2014 RECORDED 08/10/19 14 3:10PM BY DINA DE SANTIAGO MA, ANNOTATI ON/ADDEN DUM Christopher zacarias MD [address] [facility] [address], [place], [address], [facility] 6 08:48:26 Disorder of hair AND/OR hair follicle Completed 200702/23/2014 RESOLVED DATE: 12/04/19 08; RECORDED 12/04/19 08 12:56PM BY CHRISTOPHER JOHN MD, MARYATI ON/ADDEN DUM Christopher zacarias MD [address] [facility] [address], [place], [address], [facility] 6 08:48:25 Galljustin e 381833658 Completed 201102/23/2014 RECORDED 02/14/20 12 10:49AM BY JULES PALMA I, CLAUDY ON/ADDEN DUM Christopher zacarias MD [address] [facility] [address], [place], [address], [facility] 6 08:48:25 Adult health examinat ion Completed 201306/02/2014 RECORDED 12/16/19 14 2:40PM BY JULES PALMA I, OFFICE VISIT Christopher zcaarias MD [address] [facility] [address], [place], [address], [facility] 6 08:48:26 General examinat ion of patient Completed 200702/23/2014 RECORDED 12/04/19 08 12:56PM BY CHRISTOPHER JOHN MD, MARYATI ON/ADDEN DUM Christopher zacarias MD [address] [facility] [address], [place], [address], [facility] 6 08:48:26 Genital finding 205433505 Completed 201102/23/2014 RECORDED 02/14/20 12 10:49AM BY CLAUDY CHAUHAN ON/JEMMA zacarias MD [address] [facility] [address], [place], [address], [facility] 6 08:48:26 Headache 85308262 Completed 201102/23/2014 RECORDED 02/14/20 12 10:49AM BY CLAUDY CHAUHAN ON/JEMMA zacarias MD [address] [facility] [address], [place], [address], [facility] 6 08:48:25 Hemorrha ge of rectum and anus 919206807 Completed 200702/23/2014 RESOLVED DATE: 12/04/19 08; RECORDED 12/04/19 08 12:56PM BY CHRISTOPHER JOHN MD, CLAUDY ON/JEMMA zacarias MD [address] [facility] [address], [place], [address], [facility] 6 08:48:26 Pure hypercho lesterol emia 528122267 Completed 201202/23/2014 RECORDED 10/18/19 13 1:50PM BY CLAUDY CHAUHAN/JEMMA zacarias MD [address] [facility] [address], [place], [address], [facility] 6 08:48:25 Glucose level outside referenc e range 655520990 Completed 201102/23/2014 RECORDED 02/14/20 12 10:48AM BY CLAUDY CHAUHAN/JEMMA zacarias MD [address] [facility] [address], [place], [address], [facility] 6 08:48:26 Incontin ence of feces 23505668 Completed 201102/23/2014 RECORDED 02/14/20 12 10:49AM BY CLAUDY CHAUHAN ON/JEMMA zacarias MD [address], [place], [address], [facility] 6 08:48:26 Bundle branch block [id number] Completed 201302/23/2014 IMPRESSI ON: NONSECIF IC. WILL BE CHECKING K; RECORDED 12/16/19 14 9:10AM BY CLAUDY CHAUHAN ON/JEMMA zacarias MD [address], [place], [address], [facility] 6 08:48:25 Irritabl e bowel syndrome 18321251 Completed 201102/23/2014 RECORDED 02/14/20 12 10:49AM BY CLAUDY CHAUHAN ON/JEMMA zacarias MD [address], [place], [address], [facility] 6 08:48:25 Low back pain [id number] Completed 201302/23/2014 IMPRESSI ON: APPEARS MUSCULAR ; TREAT WITH PAIN MEDS FOR 5 DAYS AND RETURN NEXT WEEK FOR REEVALUA TION.; RECORDED 08/17/19 14 8:56AM BY DEJA SMITH MA, ANNOTATI ON/JEMMA zacarias MD [address], [place], [address], [facility] 7 12:57:02 Disorder of upper respirat ory system [id number] Completed 201102/23/2014 RECORDED 02/14/20 12 10:48AM BY CLAUDY CHAUHAN/JEMMA zacarias MD [address], [place], [address], [facility] 6 08:48:26 Nasal polyp Completed 201302/23/2014 IMPRESSI ON: HE DID FLONASE BUT DID NOT SEEM TO HELP. HE FEELS LIKE IT IS STILL THERE; RECORDED 12/16/19 14 9:10AM BY JULES PALMA I, CLAUDY ON/ADDEN ARIN zacarias MD [address], [place], [address], [facility] 6 08:48:25 Patient status finding [id number] Completed 201303/04/2014 RECORDED 12/16/19 14 2:33PM BY JULES PALMA I, OFFICE VISIT Christopher zacarias MD [address], [place], [address], [facility] 6 08:48:26 Patient status finding [id number] Completed 201202/23/2014 RECORDED 04/07/20 13 8:51AM BY CLAUDY CHAUHAN ON/JEMMA zacarias MD [address], [place], [address], [facility] 6 08:48:26 Obesity 624448931 Completed 07/06/2017 Siobhan Wilkins MA null, [facility] 7 09:04:55 Obstruct sylvia sleep apnea syndrome 81623323 Active Currentl y has a machine which helps but he uses it only intermit tently Christopher zacarias MD [address], [place], [address], [facility] 6 08:48:25 Finding relating to sexualit y and sexual activity 148353668 Completed 201102/23/2014 RECORDED 02/14/20 12 10:48AM BY CLAUDY CHAUHAN ON/ADDBELIA zacarias MD [address], [place], [address], [facility] 6 08:48:26 Eruption [id number] Completed 201102/23/2014 RECORDED 02/14/20 12 10:48AM BY CLAUDY CHAUHAN ON/JEMMA zacarias MD [address] [facility] [address], [facility] [place], [address], [facility] 6 08:48:25 Adult health examinat ion Completed 201102/23/2014 RECORDED 02/14/20 12 10:48AM BY CLAUDY HCAUHAN ON/JEMMA zacarias MD [address] [facility] [address], [place], [address], [facility] 6 08:48:26 Right upper quadrant pain 432335887 Completed 201202/23/2014 IMPRESSI ON: THIS HAS RESOLVED BUT GIVEN HIS SX AND H/O [place] ES FROM 2-3 YRS AGO WE WILL DO ANOTHER U/S AND REFER HIM TO SURGERY FOR EVALUATI ON.; RECORDED 02/13/20 13 10:34AM BY CLAUDY CHAUHAN ON/JEMMA zacarias MD [address] [facility] [address], [place], [address], [facility] 6 08:48:26 Administ ration of diphther ia, pertussi s, and tetanus vaccine Completed 201202/23/2014 RECORDED 03/27/20 13 2:29PM BY DEJA SMITH MA, CLAUDY ON/JEMMA zacarias MD [address] [facility] [address], [place], [address], [facility] 6 08:48:26 Dermatop hytosis of the perianal area Completed 201102/23/2014 RECORDED 02/14/20 12 10:48AM BY CLAUDY CHAUHAN ON/JEMMA zacarias MD [address] [facility] [address], [place], [address], [facility] 6 08:48:25 Type 2 diabetes mellitus without complica tion 367166121 Completed 201102/23/2014 IMPRESSI ON: TOLERATI NG MEDS WELL; WILL CHECK HIS LABS NEXT VISIT.; RECORDED 03/17/20 12 8:32AM BY MARY CHAUHANATI ON/JEMMA zacarias MD [address] [facility] [address], [facility] [place] [place], [address], [facility] 6 08:48:25 Constipa tion 72056413 Completed 201202/23/2014 RECORDED 02/13/20 13 10:34AM BY CLAUDY CHAUHAN ON/ADDEN DUM AIDEE Morrow, [facility] 7 09:04:14 Developm ental delay 310506241 Completed 201102/23/2014 RECORDED 02/14/20 12 10:48AM BY CLAUDY CHAUHAN ON/JEMMA zacarias MD [address] [facility] [address], [facility] [place] [place], [address], [facility] 6 08:48:25 Vitamin D deficien cy 25492519 Active Christopher zacarias MD [address] [facility] [address], [facility] [place] [place], [address], [facility] 6 08:48:25 Constipa tion 01552925 Completed 07/06/2017 AIDEE Morrow, [facility] 7 09:04:14 Abdomina l pain 97961427 Completed 201303/15/2014 RECORDED 12/16/19 14 2:30PM BY EVERTON DE LA O MA, ANNOTATI ON/ADDEN DUM AIDEE Morrow, [facility] 7 09:04:19 Epigastr ic pain 84364051 Completed 201103/15/2014 RECORDED 02/14/20 12 10:48AM BY CLAUDY CHAUHAN ON/JEMMA zacarias MD [address], [place], [address], [facility] 6 08:48:26 Acute pharyngi tis 829992435 Completed 201103/15/2014 RECORDED 02/14/20 12 10:48AM BY CLAUDY CHAUHAN ON/JEMMA zacarias MD [address], [place], [address], [facility] 6 08:48:25 Allergic rhinitis 65991841 Completed 201103/15/2014 RECORDED 02/14/20 12 10:48AM BY CLAUDY CHAUHAN ON/JEMMA zacarias MD [address], [place], [address], [facility] 6 08:48:25 Sleep apnea 00333616 Completed 201103/15/2014 RECORDED 02/14/20 12 10:48AM BY CLAUDY CHAUHAN ON/JEMMA zacarias MD [address], [place], [address], [facility] 6 08:48:25 Acute asthma 018587148 Completed 201103/15/2014 IMPRESSI ON: HE HAS IMPROVED AND WILL CONTINUE WITH CURRENT MGMT; RECORDED 07/15/20 12 9:53AM BY CLAUDY CHAUHAN ON/JEMMA zacarias MD [address], [place], [address], [facility] 6 08:48:25 Backache 944964384 Completed 201303/15/2014 IMPRESSI ON: ONGOING ISSUE FOR ALMOST A YR. SWITCH TRAMADOL TO FLEXERIL FOR SHORT TERM TREATMEN T. COUNSELE D DROWSINE SS. X-RAY TO CHECK FOR SCOLIOSI S AND R/O ANKYLOSI NG SPONDYLI TIS; RECORDED 11/11/19 14 1:48PM BY DEJA SMITH MA, CLAUDY ON/ADDBELIA zacarias MD [address] [facility] [address], [place], [address], [facility] 6 08:48:25 Pain in thoracic spine 764734843 Completed 201103/15/2014 IMPRESSI ON: APPEARS MUSCULAR , RECOMMEN D NSAIDS, STRETCHI NG EXERCISE S, HEATING PAD. ALSO DISCUSSE D GENERAL IMPORTAN CE OF WEIGHT LOSS( T/EXERCI SE); RECORDED 02/14/20 12 10:48AM BY CLAUDY CHAUHAN ON/JEMMA zacarias MD [address] [facility] [address], [place], [address], [facility] 6 08:48:25 Intestin al malabsor ption 970800219 Completed 201203/15/2014 IMPRESSI ON: S/P CHOLECYS TECTOMY. [facility] ABOUT THIS REVIEWED . EAT SMALL FREQUENT MEALS, MINIMIZE FATTY FOODS. MINIMIZE CAFFEINE . IF NOT IMPROVIN G, CAN CALL FOR RX FOR CHOLESTY RAMINE. THIS CONDITIO N SHOULD HOPEFULL Y RESOLVE SOON SINCE MOST PEOPLE GET BETTER A FEW MONTHS AFTER CHOLECYS TECTOMY. ; RECORDED 04/07/20 13 8:51AM BY CLAUDY CHAUHAN/JEMMA zacarias MD [address] [facility] [address], [place], [address], [facility] 6 08:48:25 Chest pain 91666119 Completed 201103/15/2014 RECORDED 02/14/20 12 10:49AM BY CLAUDY CHAUHAN/JEMMA ARIN zacarias MD [address] [facility] [address], [place], [address], [facility] 6 08:48:25 Breathin g painful 01707907 Completed 201103/15/2014 RECORDED 02/14/20 12 10:48AM BY CLAUDY CHAUHAN ON/JEMMA zacarias MD [address] [facility] [address], [place], [address], [facility] 6 08:48:25 Cough 01957897 Completed 201103/15/2014 RECORDED 02/14/20 12 11:13AM BY CHRISTOPHER JOHN MD, CLAUDY ON/JEMMA zacarias MD [address] [facility] [address], [place], [address], [facility] 6 08:48:25 Dysuria 78815622 Completed 201103/15/2014 RECORDED 02/14/20 12 10:48AM BY CLAUDY CHAUHAN/JEMMA zacarias MD [address] [facility] [address], [place], [address], [facility] 6 08:48:26 Follow-u p encounte r Completed 201103/15/2014 RECORDED 04/24/20 12 11:25AM BY CLAUDY CHAUHAN ON/JEMMA zacarias MD [address] [facility] [address], [place], [address], [facility] 6 08:48:26 Influenz a vaccine needed [id number] 06 Completed 201303/15/2014 RECORDED 08/10/19 14 3:10PM BY DINA DE SANTIAGO MA, CLAUDY ON/JEMMA zacarias MD [address] [facility] [address], [facility] [place] [place], [address], [facility] 6 08:48:26 Disorder of hair AND/OR hair follicle Completed 200703/15/2014 RESOLVED DATE: 12/04/19 08; RECORDED 12/04/19 08 12:56PM BY CHRISTOPHER JOHN MD, CLAUDY ON/ADDEN ARIN zacarias MD [address] [facility] [address], [place], [address], [facility] 6 08:48:25 [place] e 181819133 Completed 201103/15/2014 RECORDED 02/14/20 12 10:49AM BY CLAUDY CHAUHAN ON/JEMMA zacarias MD [address] [facility] [address], [facility] [place], [address], [facility] 6 08:48:25 General examinat ion of patient Completed 200703/15/2014 RECORDED 12/04/19 08 12:56PM BY CHRISTOPHER JOHN MD, CLAUDY ON/JEMMA zacarias MD [address] [facility] [address], [place], [address], [facility] 6 08:48:26 Genital finding 871703275 Completed 201103/15/2014 RECORDED 02/14/20 12 10:49AM BY CLAUDY CHAUHAN ON/JEMMA zacarias MD [address] [facility] [address], [place], [address], [facility] 6 08:48:26 Headache 88988964 Completed 201103/15/2014 RECORDED 02/14/20 12 10:49AM BY CLAUDY CHAUHAN ON/JEMMA zacarias MD [address] [facility] [address], [place], [address], [facility] 6 08:48:25 Hemorrha ge of rectum and anus 494401570 Completed 200703/15/2014 RESOLVED DATE: 12/04/19 08; RECORDED 12/04/19 08 12:56PM BY CHRISTOPHER JOHN MD, CLAUDY ON/JEMMA zacarias MD [address] [facility] [address], [place], [address], [facility] 6 08:48:26 Pure hypercho lesterol emia 304825576 Completed 201203/15/2014 RECORDED 10/18/19 13 1:50PM BY CLAUDY CHAUHAN/JEMMA zacarias MD [address] [facility] [address], [place], [address], [facility] 6 08:48:25 Glucose level outside referenc e range 705203567 Completed 201103/15/2014 RECORDED 02/14/20 12 10:48AM BY CLAUDY CHAUHAN/JEMMA zacarias MD [address] [facility] [address], [place], [address], [facility] 6 08:48:26 Incontin ence of feces 09444177 Completed 201103/15/2014 RECORDED 02/14/20 12 10:49AM BY CLAUDY CHAUHAN ON/JEMMA zacarias MD [address] [facility] [address], [place], [address], [facility] 6 08:48:26 Bundle branch block 6563982 Completed 201303/15/2014 IMPRESSI ON: NONSECIF IC. WILL BE CHECKING K; RECORDED 12/16/19 14 9:10AM BY CLAUDY CHAUHAN/JEMMA zacarias MD [address] [facility] [address], [place], [address], [facility] 6 08:48:25 Irritabl e bowel syndrome 55965462 Completed 201103/15/2014 RECORDED 02/14/20 12 10:49AM BY CLAUDY CHAUHAN ON/JEMMA zacarias MD [address] [facility] [address], [place], [address], [facility] 6 08:48:25 Low back pain 818401633 Completed 201303/15/2014 IMPRESSI ON: APPEARS MUSCULAR ; TREAT WITH PAIN MEDS FOR 5 DAYS AND RETURN NEXT WEEK FOR REEVALUA TION.; RECORDED 08/17/19 14 8:56AM BY DEJA SMITH MA, CLAUDY ON/JEMMA zacarias MD [address] [facility] [address], [place], [address], [facility] 7 12:57:02 Disorder of upper respirat ory system 086120783 Completed 201103/15/2014 RECORDED 02/14/20 12 10:48AM BY CLAUDY CHAUHAN ON/JEMMA zacarias MD [address] [facility] [address], [place], [address], [facility] 6 08:48:26 Nasal polyp Completed 201303/15/2014 IMPRESSI ON: HE DID FLONASE BUT DID NOT SEEM TO HELP. HE FEELS LIKE IT IS STILL THERE; RECORDED 12/16/19 14 9:10AM BY CLAUDY CHAUHAN/JEMMA zacarias MD [address] [facility] [address], [place], [address], [facility] 6 08:48:25 Finding relating to sexualit y and sexual activity 965782656 Completed 201103/15/2014 RECORDED 02/14/20 12 10:48AM BY CLAUDY CHAUHAN ON/JEMMA zacarias MD [address], [place], [address], [facility] 6 08:48:26 Eruption 945136520 Completed 201103/15/2014 RECORDED 02/14/20 12 10:48AM BY CLAUDY CHAUHAN ON/JEMMA zacarias MD [address], [place], [address], [facility] 6 08:48:25 Right upper quadrant pain 021473553 Completed 201203/15/2014 IMPRESSI ON: THIS HAS RESOLVED BUT GIVEN HIS SX AND H/O [place] ES FROM 2-3 YRS AGO WE WILL DO ANOTHER U/S AND REFER HIM TO SURGERY FOR EVALUATI ON.; RECORDED 02/13/20 13 10:34AM BY CLAUDY CHAUHAN ON/JEMMA zacarias MD [address], [place], [address], [facility] 6 08:48:26 Administ ration of diphther ia, pertussi s, and tetanus vaccine Completed 201203/15/2014 RECORDED 03/27/20 13 2:29PM BY DEJA SMITH MA, ANNOTATI ON/JEMMA zacarias MD [address], [place], [address], [facility] 6 08:48:26 Dermatop hytosis of the perianal area Completed 201103/15/2014 RECORDED 02/14/20 12 10:48AM BY CLAUDY CHAUHAN ON/JEMMA zacarias MD [address], [place], [address], [facility] 6 08:48:25 Type 2 diabetes mellitus without complica tion 945299565 Completed 201103/15/2014 IMPRESSI ON: TOLERATI NG MEDS WELL; WILL CHECK HIS LABS NEXT VISIT.; RECORDED 03/17/20 12 8:32AM BY MARY CHAUHANATI ON/ADDEN DUM Christopher zacarias MD [address], [place], [address], [facility] 6 08:48:25 Constipa tion 29776525 Completed 201203/15/2014 RECORDED 02/13/20 13 10:34AM BY MARY CHAUHANATI ON/ADDEN DUM AIDEE Morrow, [facility] 7 09:04:14 Developm ental delay 886732152 Completed 201103/15/2014 RECORDED 02/14/20 12 10:48AM BY CLAUDY CHAUHAN ON/ADDEN DUM Christopher zacarias MD [address], [place], [address], [facility] 6 08:48:25 Abdomina l pain 47448484 Completed 07/06/2017 AIDEE Morrow, [facility] 7 09:04:19 Pain in elbow 15507176 Completed 06/02/2014 Christopher zacarias MD [address], [place], [address], [facility] 6 08:48:25 Acute asthma 983090480 Completed 06/02/2014 Christopher zacarias MD [address], [place], [address], [facility] 6 08:48:25 Atypical chest pain 820211076 Active He had a cardiac cath November 2017 which was normal. EF=40%. Christopher zacarias MD [address], [place], [address], [facility] 8 19:34:43 Hypercho lesterol emia 06030734 Completed 06/03/2017 Christopher zacarias MD [address] [facility] [address], [place], [address], [facility] 7 16:54:41 Herpes zoster ophthalm icus 90825360 Completed 12/17/2014 thought to be on exam, but optho had negative exam Christopher zacarias MD [address] [facility] [address], [place], [address], [facility] 6 08:48:25 Sacroili ac joint pain 162203673 Active Christopher zacarias MD [address] [facility] [address], [place], [address], [facility] 6 08:48:25 Irritabl e bowel syndrome 83066437 Active Christopher zacarias MD [address] [facility] [address], [place], [address], [facility] 6 08:48:25 Headache 18363825 Active Seen by Dr Ángel zacarias MD [address] [facility] [address], [place], [address], [facility] 6 12:44:09 Upper respirat ory infectio n 82764524 Completed 07/06/2017 Siobhan Wilkins MA null, 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 Christopher zacarias MD [address] [facility] [address], [place], [address], [facility] 6 08:48:26 Gastriti s 4756554 Completed 07/06/2017 AIDEE Morrow, [facility] 7 09:05:03 Type 2 diabetes mellitus 45923549 Completed 06/03/2017 Christopher zacarias MD [address] [facility] [address], [facility] [place], [address], [facility] 7 11:26:49 Morbid obesity 468947019 Completed 07/06/2017 AIDEE Morrow, [facility] 7 09:04:46 Dizzines s 250794795 Completed 07/06/2017 AIDEE Morrow, [facility] 7 09:04:36 Fatigue 28528766 Active Christopher zacarias MD [address] [facility] [address], [place], [address], [facility] 6 08:48:25 Tinea cruris 074150981 Active Christopher zacarias MD [address] [facility] [address], [place], [address], [facility] 6 08:48:25 Allergic rhinitis 20557509 Active Christopher zacarias MD [address] [facility] [address], [place], [address], [facility] 6 12:44:09 Body mass index 40+ - severely obese 272948703 Active Christopher zacarias MD [address] [facility] [address], [facility] [place] [place], [address], [facility] 6 15:59:58 Blood in urine 41087460 Active 2015 Urine studies normal. Probably secondar y to kidney stone. Christopher zacarias MD [address] [facility] [address], [place], [address], [facility] 6 08:39:51 Solitary nodule of lung 084521024 Active 2016 3-mm pleural- based LLL; not high risk; no f/u needed. Christopher zacarias MD [address], [place], [address], [facility] 7 09:55:13 Nasal congesti on 22610824 Completed 201607/06/2017 Siobhan Wilkins MA null, [facility] 7 09:05:09 Low back pain 889199754 Active 2016 Followed by [facility] Christopher zacarias MD [address], [place], [address], [facility] 7 12:57:02 Hyperlip idemia 49687590 Active 2016 Christopher zacarias MD [address], [place], [address], [facility] 7 16:55:27 Problem Notes None recorded. Procedures Surgical History Date Name Laterality Status Provider Name and Address Organization Details Recorded Time 018 Diabetic Foot Exam (Monofilament) completed Jules Diana [facility] 01/03/2018 13:04:07 018 Other completed Rody Mckay [facility] 11/13/2017 11:19:19 018 Tte w/doppler complete completed Kristie Hernandez [facility] 11/01/2017 16:22:31 018 Coronary artery angio s&i completed Kristie Hernandez [facility] 11/01/2017 09:05:04 016 Other completed Christopher Jacob MD [address], [place], [address], [facility] 01/16/2016 08:48:26 015 Colonoscopy completed Nida May [facility] 03/13/2016 21:33:29 014 Nebulizer tx completed BRENT Morocho [address] [facility] [address], [place], [address], [facility] 05/14/2014 11:15:04 013 Cholecystectomy completed Christopher Jacob MD [address] [facility] [address], [place], [address], [facility] 04/01/2014 17:29:52 Imaging Results Imaging Date Name [...] Name and Address Organization Details Recorded Time 53251 No known allergy (situatio n) Not available Not available Not available Not available 02/16/2014 [address]328 6003 SNOMED BRENT Morocho [address] [facility] [address], [place], [address], [facility] 5 16:13:47 No known drug allergies Medications [...] 03/27 completed RECORDED 03/27/20 13 2:37PM BY DEJA SMITH MA, OFFICE VISIT;DR DEEDEE CARDOZA Not [...] 10:31AM BY CHRISTOPHER JOHN MD, MEDICATI ON AUTO-BRANDY [...] 2:50PM BY CHRISTOPHER JOHN MD, MEDICATI ON AUTO-BRANDY CTIVATIO N; Not Available Not Available Not Available lisinopri l 5 mg tablet 1 daily active Not Available Not Available Not Available metoprolo l succinate ER 25 mg tablet,ex tended release 24 hr Take 1 tablet by oral route for 30 days. active Not Available Not Available No t Available Nasonex 50 mcg/actua tion [place] EACH NOSTRIL DAILY 02/10 completed RECORDED 02/13/20 12 2:15PM BY CHRISTOPHER JOHN MD, MEDICATI ON AUTO-BRANDY [...] 03/27 completed RECORDED 03/27/20 13 2:37PM BY DEJA SMITH MA, OFFICE VISIT;ANA OBRIEN 4-8 HOURS BEFORE SEXUAL ACTIVITY Not Available [...] RECORDED 03/28/20 12 2:18PM BY MARJ JANG, CLAUDY ON/JEMMA DUM; Not Available Not Available Not Available nebulizer s DIRECTED 06/30 completed RECORDED 10/27/19 10 10:31AM BY ANGELA DUTKIEWI CZ, PA-C, MEDICATI ON AUTO-BRANDY CTIVATIO N;PLS INCLUDE [...] 03/27 completed RECORDED 03/27/20 13 2:37PM BY DEJA SMITH MA, OFFICE VISIT;GE NERLAC Not Available [...] Updated DateTime 8 175.26 cm 49.6 kg/m2 429782. 04 g 92 /min 98 % 98 % 98.2 [degF] 118 mm[Hg] 76 mm[Hg] [facility] 8 13:17:49 Date Recorded Body height Body mass index (BMI) Body weight Heart rate Oxygen saturation Oxygen saturation in Arterial blood by Pulse oximetry Body temperature Systolic blood pressure Diastolic blood pressure Provider Name and Address Organization Details Last Updated DateTime 8 175.26 cm 48.1 kg/m2 600597. 11 g 94 /min 97 % 97 % 98 [degF] 118 mm[Hg] 72 mm[Hg] [facility] 8 13:07:22 Date Recorded Body height Oxygen saturation Oxygen saturation in Arterial blood by Pulse oximetry Heart rate Body temperature Body mass index (BMI) Body weight Systolic blood pressure Diastolic blood pressure Provider Name and Address Organization Details Last Updated DateTime 8 175.26 cm 97 % 97 % 88 /min 98.6 [degF] 46.4 kg/m2 265615. 7 g 116 mm[Hg] 64 mm[Hg] Hilda Serna [facility] 8 15:16:11 Social History Question Answer Notes LastModified by Organizat ion Details LastModified Time Tobacco Smoking Status Never Smoker Not Available [facility] 06/07/2020 03:36:35 Do You Have An Advance Directive? Yes [id number] Information not available 06/07/2020 What Is Your Level Of Alcohol Consumption? None [id number] Information not available 06/07/2020 Is Blood Transfusion Acceptable In An Emergency? Yes [id number] Information not available 06/07/2020 What Is Your Level Of Caffeine Consumption? Occasional [id number] Information not available 06/07/2020 How Much Tobacco Do You Chew? None [id number] Information not available 06/07/2020 Are You Currently Employed? No [id number] Information not available 06/07/2020 What Type Of Diet Are You Following? REGULAR [id number] Information not available 06/07/2020 Which Illicit Or Recreational Drugs Have You Used? 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 Yes [id number] Information not available 06/07/2020 Live Alone Or With Others? With Others Mother, 3 Children, 3 Brothers [email or web address] Information not available 03/04/2014 Do You Take Precautions To Prevent Distracted Driving? Yes Adzilla Information not available 03/01/2015 How Often Do You Need To Have Someone Help You When You Read Instructions, Pamphlets, Or Other Written Material From Your Doctor Or Pharmacy? Sometimes Adzilla Information not available 05/17/2016 Have You Served In The ? No Adzilla Information not available 05/17/2016 What Was The Date Of Your Most Recent Tobacco Screening? 03/31/2018 [id number] Information not available 06/07/2020 How Many Children Do You Have? 3 [id number] Information not available 06/07/2020 Seat Belts Used Routinely No [email or web address] Information not available 03/01/2015 Are You Sexually Active? No [id number] Information not available 06/07/2020 Smoke Alarm In Home Yes [email or web address] Information not available 03/01/2015 Do You Use Sunscreen Routinely? No [id number] Information not available 06/07/2020 Sex: Unknown Functional Status Question Answer Note LastModified by Organization D etails LastModified Time Are you able to care for yourself? No [id number] Information n ot available 06/07/2020 What is your exercise level? None [id number] Information not available 06/07/2020 Mental Status None [...] virus, quadrivalent, PF 5 completed Not Available [facility] 08/22/2019 02:22:01 Influenza, split virus, quadrivalent, PF 6 completed Not Available [facility] 08/22/2019 02:22:04 Influenza, split virus, quadrivalent, PF 7 completed Not Available [facility] 08/22/2019 02:22:13 Influenza, split virus, trivalent, PF 4 completed Not Available [facility] 08/22/2019 02:21:57 pneumococcal polysaccharide PPV23 5 completed Not Available [facility] 08/22/2019 02:21:42 Td (adult), 2 Lf tetanus toxoid, preservative free, adsorbed 5 completed Not Available [facility] 02/16/2014 14:12:57 Influenza, split virus, trivalent, preservative 7 completed Not Available [facility] 02/16/2014 14:12:57 Influenza, split virus, trivalent, preservative 8 completed Not Available [facility] 02/16/2014 14:12:57 Influenza, split virus, trivalent, preservative 9 completed Not Available [facility] 02/16/2014 14:12:57 Influenza, split virus, trivalent, preservative 0 completed Not Available [facility] 02/16/2014 14:12:57 Influenza, split virus, trivalent, preservative 1 completed Not Available [facility] 02/16/2014 14:12:57 Influenza, split virus, trivalent, preservative 2 completed Not Available [facility] 02/16/2014 14:12:57 Tdap 3 completed Not Available [facility] 02/16/2014 14:12:58 influenza, seasonal, intradermal, preservative free 3 completed Not Available [facility] 02/16/2014 14:12:58 Past Encounters Encounter ID Performer Location Encounter Start Date Encounter Closed Date Diagnosis/Indication Diagnosis SNOMED-CT Code Diagnosis ICD10 Code Diagnosis Note [id number] Jules Diana Main Office [address] [facility] [address] [place] [address] 03/04/2014 09:13:09 03/04/2014 11:04:53 Renal disorder due to type 2 diabetes mellitus 077860186 Constipation [id number] ab domnal pain probably secondary to constipati on; possibly from IBS. Will treat and f/u in 1 month. Chronic ki dney disease stage 1 [id number] Obesity 823979838 will follow up in 1 month for weight check [id number] auto[facility]Comm erce [address] [facility] [place] [address] 11/05/2006 00:00:00 [id number] autoEComm erce [address] [facility] [place] [address] 11/05/2006 00:00:00 [id number] autoEComm erce [address] [facility] [place] [address] 11/05/2006 00:00:00 [id number] auto[facility]Comm erce [address] [facility] [place] [address] 11/05/2006 00:00:00 [id number] autoEComm erce [address] [facility] [place] [address] 07/27/2006 00:00:00 [id number] autoEComm erce [address] [facility] [address] [place] [address] 07/27/2006 00:00:00 [id number] auto[facility]Comm erce [address] [facility] [address] [place] [address] 07/27/2006 00:00:00 [id number] auto[facility]Comm erce [address] [facility] [address] [place] [address] 07/27/2006 00:00:00 [id number] auto[facility]Comm erce [address] [facility] [address] [place] [address] 04/17/2006 00:00:00 [id number] autoEComm erce [address] [facility] [address] [place] [address] 04/17/2006 00:00:00 [id number] auto[facility]Comm erce [address] [facility] [place] [address] 04/17/2006 00:00:00 [id number] auto[facility]Comm erce [address] [facility] [place] [address] 10/25/2004 00:00:00 [id number] auto[facility]Comm erce [address] [facility] [address] [place] [address] 09/06/2004 00:00:00 [id number] auto[facility]Comm erce [address] [facility] [place] [address] 09/06/2004 00:00:00 [id number] auto[facility]Comm erce [address] [facility] [place] [address] 12/26/2006 00:00:00 [id number] auto[facility]Comm erce [address] [facility] [address] [place] [address] 12/26/2006 00:00:00 [id number] autoEComm erce [address] [facility] [place] [address] 12/26/2006 00:00:00 [id number] autoEComm erce [address] [facility] [place] [address] 03/04/2007 00:00:00 [id number] auto[facility] erce [address] [place] [address] 05/08/2007 00:00:00 [id number] auto[facility]Comm erce [address] [facility] [address] [place] [address] 05/08/2007 00:00:00 [id number] auto[facility]Comm erce [address] [facility] [address] [place] [address] 05/08/2007 00:00:00 [id number] auto[facility]Comm erce [address] [facility] [place] [address] 07/04/2007 00:00:00 [id number] auto[facility]Comm erce [address] [facility] [place] [address] 07/04/2007 00:00:00 [id number] autoEComm erce [address] [facility] [place] [address] 07/04/2007 00:00:00 [id number] autoEComm erce [address] [facility] [place] [address] 10/17/2007 00:00:00 [id number] autoEComm erce [address] [facility] [place] [address]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 085926670 N18.1 continue with ACEI Low back pain 626299585 M54.5 This is a chronic problem and we discussed the importance of weight loss to help with this. He is also looking into seeing a chiropract or [id number] Bety guzman Main Office [address] [address] 07/06/2017 08:57:54 07/06/2017 10:06:41 Headache 02966479 R51 sounds due to straining for BM, looks well Constipation 53560821 K5 9.00 pt to add low fodmap fruits and veggies to diet, will start colace, and use miralax bid for a few days then dialy to do a cleanout, Gastroesop hageal reflux disease 756465981 K21.9 continue meds Body mass index 40+ - severely obese 237596253 E66.01 Z68.43 work on weight loss, exercise [id number] Christopher Jacob MD Main Office [address] [address] 09/04/2017 12:50:33 09/04/2017 13:51:03 Renal disorder due to type 2 diabetes mellitus 592821820 E11.22 His A1C has been increasing possibly because of his weight gain so we will add metformin to his regimen and see him back in 3 months. Hyperlipidemia 30676394 E78.5 Gastroesop hageal reflux disease 254583348 K21.9 continue w/increase d dose of omeprazole and f/u prn with GI. We discussed the importance of weight loss to help with his symptoms. Chronic ki dney disease stage 1 257898999 N18.1 continue with ACEI Asthma 502100061 J45.90 9 Body mass index 40+ - severely obese 129821174 E66.01 Z68.43 Has been unable to lose weight which has remained essentiall y the same for more than 10 years. [id number] Christopher Jacob MD Main Office [address] [address] 10/07/2017 14:43:16 10/07/2017 15:12:57 [id number] Christopher Jacob MD Main Office [address] [facility] [address] [place] [address] 10/09/2017 13:02:34 10/09/2017 13:49:09 Decreased cardiac ejection fraction 5889620604 79460 R93.1 This may be secondary to his morbid obesity. We discussed surgical options to deal with his obesity and he is willing to pursue this. Atypical chest pain 1025 87239 R07.89 Body mass index 40+ - severely obese 040421816 E66.01 Z68.41 Has been unable to lose weight which has remained essentiall y the same for more than 10 years. [id number] Christopher Jacob MD Main Office [address] [facility] [address] [place] [address] 01/03/2018 12:53:16 01/03/2018 13:57:48 Renal disorder due to type 2 diabetes mellitus 638700970 E11.22 His A1C has been increasing so we will increase his A1C from 500 bid to 1000 bid. Chronic ki dney disease stage 1 641428376 N18.1 continue with ACEI Dyspnea on exertion 6084 5006 R06.09 [place] to be secondary to his weight. Also has decreased EF with a normal cardiac cath. Body mass index 40+ - severely obese 921140967 E66.01 Z68.41 Has been unable to lose weight which has remained essentiall y the same for more than 10 years. He had an appointmen t with a bariatric surgeon but he was a no-show because of anxiety over weight-los s surgery. [id number] Christopher Jacob MD Main Office [address] [facility] [address] [place] [address] 01/27/2018 14:28:16 02/06/2018 17:00:54 [id number] Bety guzman Main Office [address] [facility] [address] [place] [address] 03/31/2018 15:07:16 03/31/2018 16:20:04 Viral upper respiratory tract infection 003308656 J06.9 Intolerant of heat 37367 007 R68.89 check tsh Gastroesop hageal reflux disease 928125481 K21.9 cont ppi Vitamin D deficiency 347 92817 E55.9 Allergic rhinitis 976793 04 J30.9 cont f/u c shade bander - ? hayfever, meanwhile trial of nasal saline spray, and consider claritin or flonase too Irritable bowel syndrome characterized by constipation 953816263 K58.1 cont f/u c gi, cont miralax as dir Abdominal bloating 43481 9008 R14.0 trial of probiotic supp Health Concerns Section Related Observation LastModified by Organization Detai ls LastModified Time None Recorded Concern Status LastModified by Organization Details LastModified Time None Recorded Advance Directives Directive Y: Payers Encounter Date Sequence Insurance Name Policy Number Policy Estrada Covered Member ID Estrada Member ID Guarantor Name 10/07/2017 2 [place] Waqas Vahe [id number] Waqas Vahe 10/07/2017 1 [place] [place] Waqas Vahe [id number] Waqas Vahe 10/09/2017 2 [place] Waqas Vahe [id number] Waqas Vahe 10/09/2017 1 [place] Waqas Vahe [id number] Waqas Vahe 01/03/2018 2 [place] Waqas Vahe [id number] Waqas Vahe 01/03/2018 1 [place] Waqas Vahe [id number] Waqas Vahe 01/24/2018 2 [place] Waqas Vahe [id number] Waqas Vahe 01/24/2018 1 [place] [employer] Waqas Vahe [id number] Waqas Vahe 03/31/2018 2 [place] Waqas Vahe [id number] Waqas Vahe 03/31/2018 1 [place] Waqas Vahe [id number] Waqas Vahe Notes Date Note Type Note Provider Name and Address Organization Details Recorded Time 10/07/2017 text/html Hospitalization Contact RecordReported bypatient.Follow UpHospital: [facility]; admit date: (Please enter in format [...] yes 37 year old male presents to [facility] complaining of chest pain, weakness and near syncope. Patient transferred to [facility] for ACS rule out. ACS rule out, telemetry was uneventful. Exercise stress test ordered , impression:Abnormal Exercise Tolerance Test Mild Abnormality of Exercise Physiology No EKG Evidence of Ischemia Relocation Coordinator PRITESH call to patient regarding discharge status [...] change in status . Christopher Jacob MD [address], [address], [facility] 10/07/2017 15:12:55 10/09/2017 text/html Hospitalization Contact RecordReported bypatient.Follow UpHospital: [facility]; admit date: (Please enter in format [...] yes 37 year old male presents to [facility] complaining of chest pain, weakness and near syncope. Patient transferred to [facility] for ACS rule out. ACS rule out, telemetry was uneventful. Exercise stress test ordered , impression:Abnormal Exercise Tolerance Test Mild Abnormality of Exercise Physiology No EKG Evidence of Ischemia Relocation Coordinator PRITESH call to patient regarding discharge status [...] blood. He is scheduled to see a dental chair assembler on October 14. Christopher Jacob MD [address] [address], [place], [address], [facility] 10/10/2017 08:09:26 01/03/2018 text/html Diabetes F/URepo rted [...] to look into this. Christopher Jacob MD [address] [address], [place], [address], [facility] 01/04/2018 08:05:29 01/24/2018 text/html Hospitalization Contact RecordReported bypatient.Follow UpHospital: [facility]; admit date: (Please enter in format [...] HLD, NIDDM, obesity, and GERD presented to [facility] ERc/o SOB and palpitations.. Nothing acute found. Patient admitted overnight for observation. CM contacted inpatient CM while patient was in hospital with idea of getting daily SNVs under [facility] for assistance with social media specialist as med non-compliance has been what has [...] Will continue outreach attempts. Christopher Jacob MD [address] [facility] [address], [place], [address], [facility] [place] 02/06/2018 17:00:54 03/31/2018 text/html pt states over p ast few wks felt warm, but no shaking chills, no fever occ gets head congestion, runny nose + h/o seasonal allergies - last used flonase several months ago -- seen by shade bander in past no pur nasal dc, tooth/jaw pain uses nasal pillows for eloisa also occ gets n, htbn - see at ER 2 months ago - mildly better - + h/o constipation, no use of softener - rev gi note 5.18 - h/o ibs-c Bety mcdonald, [facility] [place] 03/31/2018 16:18:26
== END 2024-11-20 12:23 | disposition home or self-care (01) ==
LOC: HO.HSMS 11:23
PROVIDERS: PCP Internal Medicine; Visit Provider Physician Assistant Medical
DX: R53.83 Other fatigue (principal); G47.9 Sleep disorder, unspecified; G47.33 Obstructive sleep apnea (adult) (pediatric); E11.69 Type 2 diabetes mellitus with other specified complication; E66.813 Obesity, class 3; E66.01 Morbid (severe) obesity due to excess calories; Z68.41 Body mass index [BMI] 40.0-44.9, adult; K21.9 Gastro-esophageal reflux disease without esophagitis; R51.9 Headache, unspecified
CPT/HCPCS: 99214

== ENCOUNTER → 2024-11-20 11:23 | Outpatient (BNVA) | payer MEDICARE, MEDICAID, SELFPAY | PROVIDERS: PCP Internal Medicine; Visit Provider Physician Assistant Medical | DX: G47.33 Obstructive sleep apnea (adult) (pediatric) (principal); G47.9 Sleep disorder, unspecified; R53.83 Other fatigue; E11.69 Type 2 diabetes mellitus with other specified complication; E66.813 Obesity, class 3; E66.01 Morbid (severe) obesity due to excess calories; K21.9 Gastro-esophageal reflux disease without esophagitis; R51.9 Headache, unspecified; Z68.42 Body mass index [BMI] 45.0-49.9, adult | CPT/HCPCS: 99212 ==

== ENCOUNTER → 2024-12-31 13:48 | Outpatient (BNVA) | payer MEDICARE, MEDICAID, SELFPAY | PROVIDERS: PCP Internal Medicine; Visit Provider Physician Assistant Surgical ==

== ENCOUNTER 2025-03-31 08:29 | Outpatient (AMB) | payer MEDICARE, MEDICAID, SELFPAY ==
[2025-03-31 08:34] VITALS: BP 158/98; PULSE 83; O2SAT 98; BMI 48.2
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
--- OUTSIDE RECORDS SUMMARY | 2025-03-31 08:53 | XMS_ITS ---
Author Name [facility] Organization Unknown Care Team Organization Name Specialty Phone Email Start Date End Da te [facility] CHERI SINGLETARY [email or web address]/11/[facility]23 4 [facility] DOMINGUEZ Platt Primary Care 12/10/202203/05 4 [facility] Stacy Rouse Primary Care 10/10/2022 4 [facility] Marizol Kaye Primary Care 06/12/2022 03/23/20 2 4
--- OUTSIDE RECORDS SUMMARY | 2025-03-31 08:53 | XMS_ITS | Clinical Summary ---
Author Organization [facility] [address] [place] [address] [place] [phone] Phone Care Team Providers Care Busher Helper Name Role Phone Carmine Barton MD Primary Care Pr ovider Allergies Active Allergy Reactions Criticality Noted Date Comments Lisinopril Headache 01/13/2020 Pollen Extracts 09/14/2019 Medications aluminum-magnes ium hydroxide-simet hicone (MAALOX MAX) 400-400-40 mg/5 mL suspension Take by mouth. Acti ve insulin syringe-needle U-100 0.3 mL 31 gauge x 5/16 syringe USE 1 NEEDLE EVERY EVENING WITH INSULIN PEN 05/08/20 23 Active UNABLE TO FIND Inhale. Activ e dicyclomine (BENTYL) 10 mg capsule Take 1 capsule (10 mg total) by mouth. 02/01/20 23 Active FREESTYLE LANCETS MISC 1 (one) time each day. 09/28/19 23 Active blood sugar diagnostic (FreeStyle Lite Strips) test strip USE TO TEST DIRECTED EVERY DAY 05/02/20 23 Active psyllium (Daily Fiber, psyllium-aspart ,) 3.4 gram packet Take 1 packet by mouth. 08/17/19 23 Active atorvastatin (LIPITOR) 40 mg tablet Take 1 tablet (40 mg total) by mouth at bedtime. 90 each 1 06/24/20 24 Active polyethylene glycol (MIRALAX) 17 gram packet Take 17 g by mouth 2 (two) times a day if needed for constipation. 510 g 11 09/22/19 25 026 Active senna-docusate (PERICOLACE) 8.6-50 mg per tablet Take 1 tablet by mouth 1 (one) time each day. 30 each 09/22/19 Active insulin aspart (NovoLOG FlexPen) 100 unit/mL (3 mL) injection pen Inject 3 times a day with meals per sliding scale: 100-149: 20 units; 150-200: 22 units; 201-250: 24 units; 251-300: 26 units; 301-350: 28 units; 350-400: 30 units 45 mL 10/31/19 Active Farxiga 10 mg tablet TAKE 1 TABLET BY MOUTH DAILY 90 tablet 12/16/19 Active lansoprazole (PREVACID) [address] capsule Take 1 capsule (30 mg total) by mouth 1 (one) time each day. Do not crush or chew. 30 each 12/29/19 Active Additional Information Patient not taking.Reported on 03/24/2025 albuterol HFA (Ventolin HFA) 90 mcg/actuation inhalerIndicati ons:Mild persistent asthma without complication Inhale 2 puffs by mouth every 6 (six) hours if needed for wheezing. 12 g 01/02/20 Active metoprolol succinate (TOPROL-XL) 25 mg 24 hr tabletIndicatio ns:Primary hypertension Take 1 tablet (25 mg total) by mouth 1 (one) time each day. 90 each 01/02/20 Active losartan (COZAAR) 25 mg tabletIndicatio ns:Primary hypertension Take 1 tablet (25 mg total) by mouth 1 (one) time each day. 90 each 01/02/20 025 Active fenofibrate (TRICOR) 145 mg tabletIndicatio ns:Hypertriglyc eridemia Take 1 tablet (145 mg total) by mouth 1 (one) time each day. 90 each 01/02/20 025 Active aspirin 81 mg EC tablet Take 1 tablet (81 mg total) by mouth 1 (one) time each day. 90 each 01/02/20 025 Active cholecalciferol (VITAMIN D-3) 50 mcg (2,000 unit) tablet Take 1 tablet (2,000 Units total) by mouth 1 (one) time each day. 90 tablet 3 01/02/20 25 Active fluticasone propion-salmete roL (Wixela Inhub) 100-50 mcg/dose diskus inhaler Inhale 1 puff by mouth 2 (two) times a day. Rinse mouth with water after use to reduce aftertaste and incidence of candidiasis. Do not swallow. 1 each 01/05/20 25 Active RABEprazole (ACIPHEX) 20 mg EC tablet Take 1 tablet (20 mg total) by mouth 1 (one) time each day. Do not crush, chew, or split. 30 each 01/05/20 25 026 Active clotrimazole-be tamethasone (LOTRISONE) 1-0.05 % cream Apply topically 2 (two) times a day. For up to 14 days 15 g 2 01/15/20 Active Additional Information Patient not taking.Reported on 03/24/2025 insulin glargine,hum.re c.anlog (Basaglar KwikPen U-100 Insulin) 100 unit/mL (3 mL) injection pen Inject 86 Units under the skin 2 (two) times a day. 45 mL 11 02/11/20 25 Active nystatin (MYCOSTATIN) 100,000 unit/gram powderIndicatio ns:Candidiasis, intertrigo APPLY A THIN LAYER TO AFFECTED AREAS TWICE DAILY 30 g 2 03/22/20 25 Active famotidine (PEPCID) 40 mg tablet Take 1 tablet (40 mg total) by mouth 1 (one) time each day. 30 each 3 03/24/20 25 026 Active metoclopramide (REGLAN) 5 mg tablet Take 1 tablet (5 mg total) by mouth 3 (three) times a day before meals. 90 each 3 03/24/20 25 026 Active cephalexin (KEFLEX) 500 mg capsule Take 1 capsule (500 mg total) by mouth 3 (three) times a day for 10 days. 30 each 03/24/20 25 025 Active nystatin (MYCOSTATIN) 100,000 unit/gram powderIndicatio ns:Candidiasis, intertrigo Apply thin layer to affected areas twice daily for 14 days 30 g 2 01/15/20 25 025 Discontinued Active Problems Problem Noted Date Diagnosed Date Hypertriglyceridemia 06/24/2024 Assessment & Plan (01/01/2025 12:26 PM EDT): Start fenofibrate given hypertriglyceridemia, triglycerides greater than 500. Will repeat labs in 3 months Orders: fenofibrate (TRICOR) 145 mg tablet; Take 1 tablet (145 mg total) by mouth 1 (one) time each day. Lipid panel with reflex to direct LDL; Future Morbid obesity with BMI of 4 5.0-49.9, adult ([facility] V24, [facility] V28) 09/27/2023 Assessment & Plan (01/01/2025 12:26 PM EDT): Continue Mounjaro 2.5 mg weekly. He is strongly encouraged to follow a diabetic diet, cut out sodas and juices and try to increase his exercise. He has not lost any significant weight this year History of hematuria 09/27/2023 Overview (09/27/2023): Urology referral 07/24/16 Uncontrolled type 2 diabetes mellitus with hyperglycemia, with long-term current use of insulin ([facility] [place], [facility] V28) 09/27/2023 Assessment & Plan (01/01/2025 12:26 PM EDT): Last A1c was 8.2. Continue endocrinology follow-up. Continue insulin basaglar 84 units twice a day, mounjaro 2.5mg weekly, Farxiga 10 mg, insulin Novolog sliding scale. Advised to check his fingerstick glucose before meals and at bedtime Diabetes mellitus with micro albuminuria ([facility] V24, [facility] V28) 01/31/2023 Assessment & Plan (01/01/2025 12:26 PM EDT): As above. Continue losartan for microalbuminuria Orders: blood-glucose,web design specialist,cont (Dexcom G7 Pipeline Dispatch Operator) misc; 1 Device by Not Applicable route 3 (three) times a day. blood-glucose sensor (Dexcom G7 Sensor) device; by Not Applicable route 3 (three) times a day. Hm Diabetes Foot Exam Hemoglobin A1c; Future Gastroparesis 02/15/2022 Assessment & Plan (01/01/2025 12:26 PM EDT): Eat small frequent meals. Continue GI follow-up Learning disability 01/11/2021 Fatty liver 10/19/2020 Overview (09/27/2023): Non-alcohol. Most likely secondary to obesity, DM and elevated lipids. Liver ultrasound at [facility] on 07/07/2021 felt to be consistent with severe hepatic steatosis . LFTs checked on 08/17/2021 revealed elevated SGOT (66), SGPT (196) and alk phos (133). Assessment & Plan (01/01/2025 12:26 PM EDT): Will treat hyperlipidemia as above . Weight loss is encouraged. He has elevated liver enzymes as a result. Follow up with GI Vitamin D deficiency 11/24/2018 Assessment & Plan (01/01/2025 12:26 PM EDT): Currently not taking vitamin D but he has a history of vitamin D deficiency. Will check levels Orders: Vitamin D 25 hydroxy; Future Esophageal dysphagia 11/24/2018 IBS (irritable bowel syndrome) 11/24/2018 Assessment & Plan (01/01/2025 12:26 PM EDT): Continue GI follow-up. He will use dicyclomine , adonis-colace, miralax to Chronic low back pain 11/24/2018 ADHD (attention deficit hyperactivity disorder) 11/24/2018 Anxiety state 11/24/2018 Depression, major, single episode 11/24/2018 Allergic rhinitis 11/24/2018 Solitary lung nodule 11/24/2018 Uncomplicated asthma 07/02/2018 Assessment & Plan (01/01/2025 12:26 PM EDT): Stable. Continue air duo twice daily and albuterol as needed. Orders: fluticasone propion-salmeteroL (AIRDUO RESPICLICK) 55-14 mcg/actuation aerosol powdr breath activated inhaler; Inhale 1 puff by mouth 2 (two) times a day. Rinse mouth with water after use to reduce aftertaste and incidence of candidiasis. Do not swallow. albuterol HFA (Ventolin HFA) 90 mcg/actuation inhaler; Inhale 2 puffs by mouth every 6 (six) hours if needed for wheezing. Hypertension 06/06/2018 Assessment & Plan (01/01/2025 12:26 PM EDT): Blood pressure well-controlled. Continue current medications Orders: metoprolol succinate (TOPROL-XL) 25 mg 24 hr tablet; Take 1 tablet (25 mg total) by mouth 1 (one) time each day. losartan (COZAAR) 25 mg tablet; Take 1 tablet (25 mg total) by mouth 1 (one) time each day. Blood pressure monitor Comprehensive metabolic panel; Future Hyperlipidemia 06/06/2018 Assessment & Plan (01/01/2025 12:26 PM EDT): LDL is at goal. Continue atorvastatin 40 mg Gastroesophageal reflux disease without esophagi tis 06/06/2018 Overview (09/27/2023): Follows with GI (Dr Pickett) at [facility] Assessment & Plan (01/01/2025 12:26 PM EDT): Continue Prevacid 30 mg daily. 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24, [facility] V28) 03/01/[address] [phone] Kavitha Giron PA 02/12/2025 Telephone Adult Medicine [address] [phone] Carmine Barton MD 02/10/2025 11:15 AM EDT Office Visit Endocrinology [address] [phone] Kavitha Giron PA Diabetes mellitus with microalbuminuria ([facility] V24, [facility] V28) (Primary Dx); Primary hypertension; Morbid obesity with BMI of 45.0-49.9, adult ([facility], [facility] V28) 01/19/2025 8:00 AM EDT Office Visit Orthopedic Surgery - [place] [address] [facility] [address] [place] [phone] Grant Correa MD Acquired trigger finger of left middle finger (Primary Dx); Rotator cuff tendinitis, right 01/14/2025 2:00 PM EDT Office Visit Adult Medicine [address] [phone] Catie Cook PA Candidiasis, intertrigo (Primary Dx); Cellulitis, umbilical; Uncontrolled type 2 diabetes mellitus with hyperglycemia, with long-term current use of insulin ([facility]24, [facility] V28); Need for vaccination against Streptococcus pneumoniae 01/06/2025 Telephone Adult Medicine [address] [phone] Carmine Barton MD 01/01/2025 9:45 AM EDT Office Visit Adult Medicine [address] [phone] Carmine Barton MD Mild persistent asthma without complication (Primary Dx); Morbid obesity with BMI of 45.0-49.9, adult ([facility] V24, [facility] V28); Uncontrolled type 2 diabetes mellitus with hyperglycemia, with long-term current use of insulin ([facility], [facility] V28); Diabetes mellitus with microalbuminuria ([facility]24, [facility] V28); Vitamin D deficiency; JAMIE on CPAP; Irritable bowel syndrome with constipation; Primary hypertension; Mixed hyperlipidemia; Hypertriglyceridemia; Fatty liver; Gastroparesis; Gastroesophageal reflux disease without esophagitis; Abnormal echocardiogram; Need for vaccination against Streptococcus pneumoniae 01/01/2025 Telephone Adult Medicine [address] [phone] Carmine Barton MD 01/01/2025 Telephone Adult Medicine [address] [phone] Kaye De Paz LPN from Last 3 Months Immunizations Name Administration Dates Next Due Influenza Quadravalent, MDCK , 0.5ml, preservative free (Flucelvax) 6mo and older 06/07/2023,04/11/2022,05/18/2020 Influenza Quadravalent, MDCK , 0.5ml, with preservative (Flucelvax) 6mo and older 06/03/2017,05/17/2016,06/01/2015,05/12 Influenza trivalent, MDCK, 0 .5mL, preservative free (Flucelvax) 6mo and older 06/24/2024 Influenza, live, intranasal, quadrivalent (FluMist) 2yo to less than 50yo 05/17/2021 Pneumococcal conjugate 20 va lent (Prevnar 20, PCV 20) 2mo and older 01/14/2025 Pneumococcal polysaccharide 23 valent (Pneumovax 23) 2yo [...] 06/28/2015 PROCEDURE: HISTORICAL COLONOSCOPY ESOPHAGOGASTRODUODENOSCOPY 06/28/2015 PROCEDURE: MS ESOPHAGOGASTRODUODENOSCOPY TRANSORAL DIAGNOSTIC ESOPHAGOGASTRODUODENOSCOPY 03/28/2017 PROCEDURE: MS ESOPHAGOGASTRODUODENOSCOPY TRANSORAL DIAGNOSTIC; COMMENT: [facility] - normal ESOPHAGOGASTRODUODENOSCOPY 08/04/2019 PROCEDURE: MS ESOPHAGOGASTRODUODENOSCOPY TRANSORAL DIAGNOSTIC; COMMENT: [facility] - Orr deployed at 36 cm. Normal stomach. Duodenitis. OTHER SURGICAL HISTORY 08/04/2019 PROCEDURE: MS GASTROESOPHAG REFLX TEST W/TELEMTRY PH ELTRD; COMMENT: [facility] - the study is negative for abnormal distal esophageal acid exposure on both days using Demeter score. ESOPHAGOGASTRODUODENOSCOPY 08/01/2021 PROCEDURE: MS ESOPHAGOGASTRODUODENOSCOPY TRANSORAL DIAGNOSTIC; COMMENT: Dr. Goldberg -bilious [...] obesity with BMI of 4 5.0-49.9, adult ([facility] V24, 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 V28) 06/06/2018 DX:Type 2 diabetes mellitus with renal manifestations ([facility]) Uncomplicated asthma 07/02/2018 DX:Uncompli cated asthma Vitamin D deficiency 11/24/2018 DX:Vitamin D deficiency NAFLD (nonalcoholic fatty li geraldo disease) 10/19/2020 DX:NAFLD (nonalcoholic fatty liver disease); COMMENT: Non-alcohol. Most likely secondary to obesity, DM and elevated lipids. Obesity DX:Obesity Obesity DX:Obesity Constipation DX:Constipation Diabetes 1.5, managed as typ e 2 (CMS/HCC V24, [facility] V28) DX:Diabetes 1.5, managed as type 2 (HCC) Constipation DX:Constipation Fatty liver DX:Fatty liver COVID-19 virus infection 07/24/2020 Allergic contact dermatitis due to cosmetics 06/20/2020 Family History Medical History Relation Name Comments [...] Date Smoking Tobacco: Never Smokeless Tobacco: Never Tobacco Cessation:Counseling Given: Not Answered Alcohol Use Standard Drinks/Week Comments Not Currently [...] Sign Reading Time Taken Comments Blood Pressure 118/62 03/24/2025 10:58 AM EDT Pulse 77 02/10/2025 11:24 AM EDT Temperature 36.2 C (97.1 F) 02/10/2025 11:24 AM EDT Respiratory Rate 12 01/14/2025 2:06 PM EDT Oxygen Saturation 95% 01/14/2025 2:06 PM EDT Inhaled Oxygen Concentration - - Weight 145 kg (320 lb 6.4 oz) 03/24/2025 10:58 A M EDT Height 172.7 cm (5' 8 ) 03/24/2025 10:58 AM EDT Body Mass Index 48.72 03/24/2025 10:58 AM EDT Plan of Treatment Upcoming Encounters Date Type Department Care Team (Late st Contact Info) Description 05/17/2025 2:00 PM EDT Office Visit Adult Medicine [facility] [address] [place] [phone] Carmine Barton MD [address] [place] [phone] 07/08/2025 11:10 AM EST Office Visit Gastroenterology - [place] 175 [facility] 175 [facility] [address] [place] [phone] Evelyne Goldsmith PA [address] [place] [phone] Health Maintenance Due Date Last Done Comments Medicare Annual Wellness Visit 07/14/2022 COVID-19 Vaccine ( season) 2024 12/30/2020, 12/09/2020 Influenza Vaccine (#1) 2025 , 06/07/2023, 04/11/2022, Additional history exists Diabetes: Blood Sugar Control Test (HGBA1C) 06/19/2025 12/17/2024, 09/04/2024, 05/05/2024, Additional history exists Diabetes: Annual Retina Eye Exam 07/13/2025 07/13/2024, 07/10/2023 Social Influencers of Health Screening 09/02/2025 09/02/2024 Diabetes: Annual Urine Albumin-Creatinine Ratio (uACR) 09/04/2025 09/04/2024, 01/30/2023 Diabetes: Annual GFR (Glomerular Filtration Rate) 12/17/2025 12/17/2024, 09/04/2024, 01/15/2024 Hypertension/CHF/CAD Annual BMP Blood Test 12/17/2025 12/17/2024, 09/04/2024, 01/15/2024 Diabetes: Annual Foot Exam 01/01/2026 01/01/2025, Cholesterol Screening (Lipid Panel) 12/17/2029 12/17/2024, 12/17/2024, 09/04/2024, Additional history exists DTaP,Tdap,and Td Vaccines (4 - Td or Tdap) 06/24/2034 06/24/2024, 02/12/2013, 09/06/2004 HIV Screening Completed 09/04/2024 Hepatitis C Screening Completed 09/04/2024 Depression Screening Completed 12/05/2024 Pneumococcal Vaccine: Pediatrics (0 to 5 Years) and At-Risk Patients (6 to 49 Years) Completed 01/14/2025, 09/02/2014 HIB Vaccines Aged Out No longer eligi ble based on patient's age to complete this topic HPV Vaccines Aged Out No longer eligi ble based on patient's age to complete this topic Hepatitis A Vaccines Discontinued Hepatitis B Vaccines Discontinued IPV Vaccines Aged Out No longer eligi [...] Date/Time Associated Diagnosis Comments POC GLUCOSE Routine 02/10/2025 11:20 AM EDT Diabetes mellitus with microalbuminuria ([facility]/HCC V24, CMS/HCC V28) MS INJECTION SINGLE TENDON SHEATH OR LIGAMENT APONEUROSIS Routine 01/19/2025 8:00 AM EDT Acquired trigger finger of left middle finger MS ARTHROCENTESIS/ASPIRAT ION/INJECTION MAJOR JOINT/BURSA W/O U/S GUIDANCE Routine 01/19/2025 8:00 AM EDT Rotator cuff tendinitis, right COMPREHENSIVE METABOLIC PANEL Routine 12/17/2024 11:49 AM EDT Constipation, unspecified constipation type Diabetes 1.5, managed as type 2 (CMS/HCC V24, CMS/HCC V28) Fatty liver HEMOGLOBIN A1C Routine 12/17/2024 11:49 AM EDT Diabetes mellitus with microalbuminuria (CMS/HCC V24, CMS/HCC V28) LIPID PANEL WITH REFLEX TO DIRECT LDL Routine 12/17/2024 11:49 AM EDT Constipation, unspecified constipation type Diabetes 1.5, managed as type 2 (CMS/HCC V24, CMS/HCC V28) Fatty liver HEPATITIS C ANTIBODY Routine 09/04/2024 7:40 AM EST Screen for STD (sexually transmitted disease) HIV 1, 2 ANTIBODY, P24 ANTIGEN WITH REFLEX TO DIFFERENTIATION Routine 09/04/2024 7:40 AM EST Screen for STD (sexually transmitted disease) MICROALBUMIN CREATININE URINE RATIO Routine 09/04/2024 7:40 AM EST Annual physical exam from Last 3 Months or Most Recently Relevant to Health Maintenance Results * POC glucose manually resulted (02/10/2025 11:20 AM EDT) Glucose POC 182 mg/dL Comment:NON fasting Blood Capillary blood specimen / Unknown 02/10/2025 11:20 AM EDT us Kavitha POLLOCK POINT OF CARE TEST ENTER/ED IT ORDERABLES Final Result * MS INJECTION SINGLE TENDON SHEATH OR LIGAMENT APONEUROSIS (01/19/2025 8:00 AM EDT) Grant Nguyen MD - 01/19/2025 8:00 AM EDT Grant Correa MD 01/20/2025 4:41 PM Hand / UE Inj/Asp: L long A1 for trigger finger Indications: pain Details: 27 G needle, volar approach Medications: 40 mg triamcinolone acetonide 40 mg/mL Outcome: tolerated well, no immediate complications Site was prepped in standard fashion using alcohol swab, sterile technique was used to perform the injection, the patient tolerated the procedure well and a band-aid dressing was applied Informed Consent: Laterality: Left Relevant images/test results available and reviewed: yes Health status cleared: Yes Procedure/treatment, purpose, treatment alternatives, risks/potential complications and benefits explained: yes Risk/complications/benefits details: Risk/complications/benefits details: Risks and benefits of corticosteroid injection were discussed, including risk of pain, bleeding, infection, tissue attenuation, tendon rupture, changes in skin color, and injury to surrounding structures such as arteries, veins and nerves. We also discussed the patient may develop worsening pain for a few days before having improvement in their symptoms. Patient questions answered: yes Patient agrees, verbalizes understanding, and wants to proceed: yes Consent given by: Patient Informed consent discussion completed by Physician/SHARON with patient: Verbal Pre-procedure timeout performed: yes us Grant Correa MD IN CLINIC/BEDSIDE ORDERABLES Fin al Result * MS ARTHROCENTESIS/ASPIRATION/INJECTION MAJOR JOINT/BURSA W/O U/S GUIDANCE (01/19/2025 8:00 AM EDT) Grant Nguyen MD - 01/19/2025 8:00 AM EDT Grant Correa MD 01/20/2025 4:41 PM L Inj/Asp: R subacromial bursa Indications: pain Details: 22 G needle, posterior approach Medications: 40 mg triamcinolone acetonide 40 mg/mL Site was prepped in standard fashion using alcohol swab, sterile technique was used to perform the injection, the patient tolerated the procedure well and a band-aid dressing was applied Informed Consent: Site: Right subacromial Laterality: Right Relevant images/test results available and reviewed: yes Health status cleared: Yes Procedure/treatment, purpose, treatment alternatives, risks/potential complications and benefits explained: yes Risk/complications/benefits details: Risk/complications/benefits details: Risks and benefits of corticosteroid injection were discussed, including risk of pain, bleeding, infection, tissue attenuation, tendon rupture, changes in skin color, and injury to surrounding structures such as arteries, veins and nerves. We also discussed the patient may develop worsening pain for a few days before having improvement in their symptoms. Patient questions answered: yes Patient agrees, verbalizes understanding, and wants to proceed: yes Consent given by: Patient Informed consent discussion completed by Physician/SHARON with patient: Verbal Pre-procedure timeout performed: yes us Grant Correa MD IN CLINIC/BEDSIDE ORDERABLES Fin al Result * (ABNORMAL) Lipid panel with reflex to direct LDL (12/17/2024 11:49 AM EDT) Cholesterol 123 0 - 200 mg/dL LAB CHEMISTRY METHOD 12/17/2024 5:28 PM [facility] Triglycerides 505(H) 0 - 150 mg/dL LAB CHEMISTRY METHOD 12/17/2024 5:28 PM [facility] HDL 29(L) >=40 mg/dL LAB CHEMISTRY METHOD 12/17/2024 5:28 PM [facility] LDL Calculated LAB CHEMISTRY METHOD 12/17/2024 5:28 PM [facility] Comment: Unable to calculate when triglycerides >400 mg/dL. Triglyceride value is >= 500. Calculated LDL is not meaningful. Direct LDL has been added. VLDL Cholesterol Sunny LAB CHEMISTRY METHOD 12/17/2024 5:28 PM [facility] Comment:Unable to calculate when triglycerides >400 mg/dL. Non HDL Chol. (LDL+VLDL) LAB CHEMISTRY METHOD 12/17/2024 5:28 PM [facility] Comment:Unable to calculate when triglycerides >400 mg/dL. Chol/HDL Ratio 4.2 0.0 - 4.4 LAB CHEMISTRY METHOD 12/17/2024 5:28 PM [facility] Blood Venous blood specimen / Unknown Venipuncture / Unknown 12/17/2024 11:49 AM EDT 12/17/2024 11:49 AM EDT Daniel POLLOCK LAB BLOOD ORDERABLES Final Resu lt Performing Organization Address [facility]/ZIP Co de Phone Number [facility] [address] [place] [address], [place] [phone] * (ABNORMAL) Hemoglobin A1c (12/17/2024 11:49 AM EDT) Pathologist [facility] Hemoglobin A1C 8.2(H) <6.5 % LAB CHEMISTRY METHOD 12/17/2024 5:17 PM EDT [facility] Mean Bld Glu Estim. 189 mg/dL LAB CHEMISTRY METHOD 12/17/2024 5:17 PM EDT [facility] Blood Venous blood specimen / Unknown Venipuncture / Unknown 12/17/2024 11:49 AM EDT 12/17/2024 11:49 AM EDT Kavitha POLLOCK LAB BLOOD ORDERABLES Final Result Performing Organization Address [facility]/ZIP Ut de Phone Number [facility] [address] [place] [address], [place] [phone] * (ABNORMAL) Comprehensive metabolic panel (12/17/2024 11:49 AM EDT) Pathologist [facility] [place] Sodium 134 133 - 145 mmol/L LAB CHEMISTRY METHOD 12/17/2024 5:25 PM EDT [facility] Potassium 4.0 3.5 - 5.5 mmol/L LAB CHEMISTRY METHOD 12/17/2024 5:25 PM EDT [facility] Chloride 102 96 - 110 mmol/L LAB CHEMISTRY METHOD 12/17/2024 5:25 PM EDT [facility] CO2 24 21 - 32 mmol/L LAB CHEMISTRY METHOD 12/17/2024 5:25 PM [facility] Anion Gap 8 3 - 11 LAB CHEMISTRY METHOD 12/17/2024 5:25 PM [facility] Glucose 259(H) 70 - 100 mg/dL LAB CHEMISTRY METHOD 12/17/2024 5:25 PM [facility] BUN 12 5 - 25 mg/dL LAB CHEMISTRY METHOD 12/17/2024 5:25 PM [facility] Creatinine 0.80 0.70 - 1.30 mg/dL LAB CHEMISTRY METHOD 12/17/2024 5:25 PM [facility] eGFR 113 >=60 mL/min/1. 73m2 LAB CHEMISTRY METHOD 12/17/2024 5:25 PM [facility] Comment:Calculation based on the Chronic Kidney Disease Epidemiology Collaboration (CKD-EPI) equation refit without adjustment for race. BUN/Creatinine Ratio 15.0 LAB CHEMISTRY METHOD 12/17/2024 5:25 PM [facility] Calcium 9.2 8.5 - 10.5 mg/dL LAB CHEMISTRY METHOD 12/17/2024 5:25 PM [facility] AST (SGOT) 47(H) 10 - 42 unit/L LAB CHEMISTRY METHOD 12/17/2024 5:25 PM [facility] ALT (SGPT) 124(H) 10 - 60 unit/L LAB CHEMISTRY METHOD 12/17/2024 5:25 PM [facility] Alkaline Phosphatase 145(H) 42 - 121 unit/L LAB CHEMISTRY METHOD 12/17/2024 5:25 PM [facility] Total Protein 7.6 6.0 - 8.0 g/dL LAB CHEMISTRY METHOD 12/17/2024 5:25 PM [facility] Albumin 3.7 3.2 - 5.0 g/dL LAB CHEMISTRY METHOD 12/17/2024 5:25 PM [facility] Total Bilirubin 0.6 0.0 - 1.4 mg/dL LAB CHEMISTRY METHOD 12/17/2024 5:25 PM EDT [facility] Blood Venous blood specimen / Unknown Venipuncture / Unknown 12/17/2024 11:49 AM EDT 12/17/2024 11:49 AM EDT Daniel POLLOCK LAB BLOOD ORDERABLES Final Resu lt Performing Organization Address City/[facility]/ZIP Co de Phone Number [facility] [address] [place] [address], [place] [phone] * Hepatitis C antibody (09/04/2024 7:40 AM EST) Hepatitis C Antibody Negative Negative LAB CHEMISTRY METHOD 09/04/2024 11:19 AM EST [facility] Blood Venous blood specimen / Unknown Venipuncture / Unknown 09/04/2024 7:40 AM EST 09/04/2024 7:40 AM EST Catie POLLOCK LAB BLOOD ORDERABLES Final Re sult Performing Organization Address [facility] de Phone Number [facility] [address] [place] [address], [place] [phone] * HIV 1,2 antibody, p24 antigen with reflex to differentiation (09/04/2024 7:40 AM EST) Pathologist [facility] [place] HIV Combo AB/AG Negative Negative LAB CHEMISTRY METHOD 09/04/2024 11:20 AM EST [facility] Blood Venous blood specimen / Unknown Venipuncture / Unknown 09/04/2024 7:40 AM EST 09/04/2024 7:40 AM EST Narrative [facility] - 09/04/2024 11:20 AM EST This assay is a 4th generation assay allowing for earlier detection of HIV infection by detecting the presence of the HIV-1 p24 antigen as well as the traditional antibodies to HIV type 1 (including group O) and type 2. Use of a 4th generation assay is the current CDC recommendation for HIV screening. Catie POLLOCK LAB BLOOD ORDERABLES Final Re sult Performing Organization Address [facility]/ZIP Co de Phone Number [facility] [address] [place] [address], [place] [phone] * (ABNORMAL) Microalbumin creatinine urine ratio (09/04/2024 7:40 AM EST) Creatinine, Urine 109.0 mg/dL LAB CHEMISTRY METHOD 09/04/2024 10:59 AM EST [facility] Microalb, Ur 110.0(H) 0.0 - 29.0 mg/L LAB CHEMISTRY METHOD 09/04/2024 10:59 AM EST [facility] Microalb/Crea t Ratio 101(H) <30 mg/g creat LAB CHEMISTRY METHOD 09/04/2024 10:59 AM EST [facility] Urine Urine specimen obtained by clean catch procedure / Unknown Non-blood Collection / Unknown 09/04/2024 7:40 AM EST 09/04/2024 7:40 AM EST Catie POLLOCK LAB URINE ORDERABLES Final Re sult Performing Organization Address [facility] Co de Phone Number [facility] [address] [place] [address], [place] [phone] from Last 3 Months or Most Recently Relevant to Health Maintenance Insurance MEDICARE MEDICAID - [place] ABHILASHADEOLA, EDUARDO [id number] Care Teams Busher Helper Relationship Specialty Start Date End Date Carmine Barton MD [address] [place] [id number] PCP - General Internal Medicine 08/24/24
== END 2025-03-31 09:25 | disposition home or self-care (01) ==
LOC: HO.HSMS 08:29
PROVIDERS: PCP Internal Medicine; Visit Provider Physician Assistant Medical
DX: R53.83 Other fatigue (principal); G47.9 Sleep disorder, unspecified; G47.33 Obstructive sleep apnea (adult) (pediatric); E11.69 Type 2 diabetes mellitus with other specified complication; E66.813 Obesity, class 3; E66.01 Morbid (severe) obesity due to excess calories; Z68.41 Body mass index [BMI] 40.0-44.9, adult; K21.9 Gastro-esophageal reflux disease without esophagitis; R51.9 Headache, unspecified
CPT/HCPCS: 99214

== ENCOUNTER → 2025-03-31 08:29 | Outpatient (BNVA) | payer MEDICARE, MEDICAID, SELFPAY | PROVIDERS: PCP Internal Medicine; Visit Provider Physician Assistant Medical | DX: G47.33 Obstructive sleep apnea (adult) (pediatric) (principal); G47.19 Other hypersomnia; K21.9 Gastro-esophageal reflux disease without esophagitis; E11.69 Type 2 diabetes mellitus with other specified complication; E66.813 Obesity, class 3; E66.01 Morbid (severe) obesity due to excess calories; Z68.42 Body mass index [BMI] 45.0-49.9, adult; R53.83 Other fatigue; R51.9 Headache, unspecified; Z99.89 Dependence on other enabling machines and devices; Z71.3 Dietary counseling and surveillance | CPT/HCPCS: 99212 ==